=== PATIENT | female | born 2000 | race Caucasian/White ===

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

== ENCOUNTER 2019-05-26 09:18 | Emergency (ER) | payer OTHER ==
[2019-05-26 09:29] VITALS: BP 124/81; PULSE 87; RESP 16; TEMP 98.2
--- NOTE | 2019-05-26 09:35 | ED ---
Headache HPI - General Mode of arrival: ambulatory Limitations: no limitations <China Montes De Oca - Last Filed: 05/26/19 12:01> <Lelo Murcia - Last Filed: 05/27/19 23:42> - General Chief Complaint: Headache Stated Complaint: headache x4 days Time Seen by Provider: 05/26/19 09:31 - History of Present Illness Initial Comments: 18-year-old female presenting today for chief complaint of headache 4 days. Patient states she has occasional headaches in the past. Patient states this feels very typical of her headaches however is lasting longer than usual. Patient described tis headache as band like throbbing circulating head with radiation. Patient states the headache began sometime around Tuesday evening. She states that is came on gradually--denies sudden onset, denies this being the worst PONCE of her life. Denies vomiting, neck pain, photophobia, neck stiffness, visual changes speech changes this coordinated movements, sensation deficits weakness of the upper or lower extremities patient denies any asymmetry of the facial expression she denies any family or known personal history of aneurysms, denies history of polycystic kidney disease. . Denies use of cocaine or amphetamines. Patient denies . Patient has no other complaints at this time. upon arrival patient appears well three is no signs of acute distress. (China Montes De Oca) - Related Data Previous Rx's Medication Instructions Recorded Amoxicillin 500 mg PO Q12HR 10 Days #20 cap 11/29/18 Allergies Allergy/AdvReac Type Severity Reaction Status Date / Time No Known Allergies Allergy Verified 05/27/19 22:39 Review of Systems ROS Other: All systems not noted in ROS Statement are negative. <China Montes De Oca - Last Filed: 05/26/19 12:01> ROS Other: All systems not noted in ROS Statement are negative. <Lelo Murcia - Last Filed: 05/27/19 23:42> ROS Statement: Those systems with pertinent positive or pertinent negative responses have been documented in the HPI. Past Medical History Past Medical History: No Reported History History of Any Multi-Drug Resistant Organisms: None Reported Past Surgical History: No Surgical Hx Reported Past Psychological History: No Psychological Hx Reported Smoking Status: Current every day smoker Past Alcohol Use History: Occasional Past Drug Use History: None Reported <China Montes De Oca - Last Filed: 05/26/19 12:01> General Exam Limitations: no limitations <China Montes De Oca L - Last Filed: 05/26/19 12:01> - General Exam Comments Initial Comments: General: The patient is awake and alert, in no distress, and does not appear acutely ill. Eye: +3 mm pupils are equal, round and reactive to light, extra-ocular movements are intact. No nystagmus. There is normal conjunctiva bilaterally. No signs of icterus. Ears, nose, mouth and throat: There are moist mucous membranes and no oral lesions. Neck: The neck is supple, there is no tenderness or JVD. Cardiovascular: There is a regular rate and rhythm. No murmur, rub or gallop is appreciated. Respiratory: Lungs are clear to auscultation, respirations are non-labored, breath sounds are equal. No wheezes, stridor, rales, or rhonchi. Musculoskeletal: Normal ROM, no tenderness. Strength 5/5. Sensation intact. Pulses equal bilaterally 2+. Neurological: A&O x 3. CN II-XII intact, memory intact to immediately, intermediate and terminal press operator recall. Able to follow simple verbal. Able to name a common object (stethoscope). High quality, labial (pa) and lingual (la) speech. Low quality posterior pharynx/larynx (ga) voice sounds. Able to express general knowledge (days in a week). No hemineglect or inattention noted. Finger agnosia (-) and spatially oriented (identified L index finger touched R shoulder with L index finger). Light touch sensation present over the face, chest, abdomen, back, UE bilaterally, and LE bilaterally. Able to localize point during point localization b/l and extinction. No visible bulk atrophy, hypertrophy, fasciculations, or myoclonus of the UE or LE b/l. Full PROM in UE and LE b/l. Bilateral muscle strength 5/5 for the following muscles: deltoid, biceps, triceps, brachioradialis, wrist extensors/flexor, hip flexor, hip abductors/adductors, hamstrings, quadriceps, feet dorsiflexors/plantar flexors. Finger to nose, finger to the examiners finger, and heel to romero coordinated and accurate b/l. Coordinated and even demonstration of hand flip, finger to thumb, and toe tap b/l. Gait is coordinated and even in stride. Maintains balance with monopedal stance. (-) Romberg. (-) pronator drift. No nuchal rigidity. Skin: Skin is warm and dry and no rashes or lesions are noted. Psychiatric: Cooperative, appropriate mood & affect, normal judgment. (China Montes De Oca) Course <China Montes De Oca - Last Filed: 05/26/19 12:01> Vital Signs 05/26/19 09:28 Temperature 98.2 F Pulse Rate 87 Respiratory 16 Rate Blood Pressure 124/81 O2 Sat by Pulse 99 Oximetry - Reevaluation(s) Reevaluation #1: Patient re-evaluated, pain persists, however prior to walking in room patient was on her phone face-timing another person, laughing, joking, sounding well. No grimacing or signs of physical discomfort on gross examination. 05/26/19 10:53 (China Montes De Oca) Medical Decision Making <China Montes De Oca - Last Filed: 05/26/19 12:01> <Lelo Murcia - Last Filed: 05/27/19 23:42> - Medical Decision Making 18-year-old male presenting today for chief complaint of headache. Patient denies some onset thunderclap headache of this being the worst headache of her life. Patient has no focal neurological deficits she appears well there is no signs of meningeal irritation patient is afebrile and nontoxic in appearance patient was provided Toradol and Zofran and Tylenol she states that this helped somewhat but symptoms still present, 2mg IM morphine given and she states symptoms subsided on reevaluation. I discussed return parameters and the importance of follow-up. Patient verbalized understanding recommended symptoms are chronic she have an outpatient MRI. Patient verbalized understanding, right presented to the emergency department and drove patient home she was given opioids. Patient was discharged appearing well after discussed the case with any provider Dr. Murcia (China Montes De Oca) I was available for consultation in the emergency department. The history and physical exam were done by the midlevel provider. I was consulted for this patients care. I reviewed the case with the midlevel provider and based on their presentation of the patient, I agree with the assessment, medical decision making and plan of care as documented. Chart was dictated using Dragon dictation software. Attempts were made to correct any dictation errors however some typographical errors may persist. (Lelo Murcia) Disposition Is patient prescribed a controlled substance at d/c from ED?: No Time of Disposition: 11:25 <China Montes De Oca - Last Filed: 05/26/19 12:01> <Lelo Murcia - Last Filed: 05/27/19 23:42> Clinical Impression: Acute headache Disposition: HOME SELF-CARE Condition: Good Instructions (If sedation given, give patient instructions): Acute Headache (ED) Additional Instructions: Please use medication as discussed. Please follow-up with family doctor in the next 2 days. Please return to emergency room if the symptoms increase or worsen or for any other concerns. Referrals: None,Stated [Primary Care Provider] - 1-[address] [facility] - [facility]-2 days
[2019-05-26] MEDS ORDERED: KETOROLAC 30 MG/ML 1 ML VIAL IM STA (09:55)
[2019-05-26] MEDS ORDERED: ONDANSETRON ODT 4 MG TAB PO STA (09:56)
[2019-05-26] MEDS ORDERED: ACETAMINOPHEN TAB 325 MG TAB PO STA (09:56)
[2019-05-26] MEDS ORDERED: MORPHINE SULFATE 2 MG/ML SYRINGE IM STA (10:48)
== END 2019-05-26 11:27 | disposition home or self-care (01) ==
LOC: EC 09:18
DX: R51 Headache (principal); F17.200 Nicotine dependence, unspecified, uncomplicated
CPT/HCPCS: 99283; 96372 ×2; J1885; J2270

== ENCOUNTER 2019-05-27 | Emergency (ER) | payer OTHER | END 2019-05-28 00:50 | disposition home or self-care (01) | CPT/HCPCS: 99284; 96374; 96375 ×2; 96361; 70450; J2270; J1200; J2765 ==

== ENCOUNTER 2019-09-24 03:00 | Emergency (ER) | payer OTHER ==
[2019-09-24] MEDS ORDERED: KETOROLAC 60 MG/2 ML VIAL IM STA (03:50)
[2019-09-24] MEDS ORDERED: ACETAMINOPHEN TAB 500 MG TAB PO STA (03:50)
--- NOTE | 2019-09-24 03:51 | ED ---
Back Pain HPI - General Chief Complaint: Back Pain/Injury Stated Complaint: Back Pain Time Seen by Provider: 09/24/19 03:22 Source: patient, RN notes reviewed, old records reviewed Limitations: no limitations - History of Present Illness Initial Comments: This is a 18-year-old female DF for evaluation patient has back pain. Pain making her uncomfortable difficult to sleep, symptoms for 2-3 days now with no injury. No neurological symptoms no loss of bowel or bladder. No trauma no fevers. Patient denies IV drug abuse. No prior history of similar significant back pain MD Complaint: back pain -: days(s) Similar Symptoms Previously: No Place: home Radiation: none Severity: moderate Severity scale (1-10): 5 Quality: sharp, dull Consistency: intermittent Improves With: none Worsens With: none Context: unknown Associated Symptoms: denies other symptoms - Related Data Previous Rx's Medication Instructions Recorded Amoxicillin 500 mg PO Q12HR 10 Days #20 cap 11/29/18 Allergies Allergy/AdvReac Type Severity Reaction Status Date / Time No Known Allergies Allergy Verified 09/24/19 03:19 Review of Systems ROS Statement: Those systems with pertinent positive or pertinent negative responses have been documented in the HPI. ROS Other: All systems not noted in ROS Statement are negative. Past Medical History Past Medical History: No Reported History History of Any Multi-Drug Resistant Organisms: None Reported Past Surgical History: No Surgical Hx Reported Past Psychological History: ADD/ADHD Smoking Status: Current every day smoker Past Alcohol Use History: Occasional Past Drug Use History: None Reported General Exam Limitations: no limitations General appearance: alert, in no apparent distress Head exam: Present: atraumatic, normocephalic, normal inspection Eye exam: Present: normal appearance, PERRL, EOMI. Absent: scleral icterus, conjunctival injection, periorbital swelling ENT exam: Present: normal exam, mucous membranes moist Neck exam: Present: normal inspection. Absent: tenderness, meningismus, lymphadenopathy Respiratory exam: Present: normal lung sounds bilaterally. Absent: respiratory distress, wheezes, rales, rhonchi, stridor Cardiovascular Exam: Present: regular rate, normal rhythm, normal heart sounds. Absent: systolic murmur, diastolic murmur, rubs, gallop, clicks GI/Abdominal exam: Present: soft, normal bowel sounds. Absent: distended, tenderness, guarding, rebound, rigid Extremities exam: Present: normal inspection, full ROM, normal capillary refill. Absent: tenderness, pedal edema, joint swelling, calf tenderness Back exam: Present: normal inspection Neurological exam: Present: alert, oriented X3, CN II-XII intact Psychiatric exam: Present: normal affect, normal mood Skin exam: Present: warm, dry, intact, normal color. Absent: rash Course Vital Signs 09/24/19 03:14 Temperature 98.2 F Pulse Rate 80 Respiratory 20 Rate Blood Pressure 117/82 O2 Sat by Pulse 100 Oximetry - Reevaluation(s) Reevaluation #1: 09/24/19 05:26 Medical record is reviewed Reevaluation #2: 09/24/19 05:26 Patient significant improved patient able ambulate without difficulty Medical Decision Making - Medical Decision Making 18 female to the ER for evaluation of back pain back pain well-controlled, urine is negative CT head and pelvis negative for acute disease - Lab Data Lab Results 09/24/19 09/24/19 Range/Units 04:26 04:27 Urine Color Yellow Urine Appearance Clear (Clear) Urine pH 6.0 (5.0-8.0) Ur Specific [place] 1.027 (1.001-1.035) Urine Protein Negative (Negative) Urine Glucose (UA) Negative (Negative) Urine Ketones Negative (Negative) Urine Blood Negative (Negative) Urine Nitrite Negative (Negative) Urine Bilirubin Negative (Negative) Urine Urobilinogen <2.0 (<2.0) mg/dL Ur Leukocyte Esterase Negative (Negative) Urine HCG, Qual Not Detected (Not Detectd) - Radiology Data Radiology results: report reviewed (CT lumbosacral spine is negative for acute disease), image reviewed Disposition Clinical Impression: Mechanical back pain, Strain of lumbar region Disposition: HOME SELF-CARE Condition: Good Instructions (If sedation given, give patient instructions): Acute Low Back Pain (ED) Is patient prescribed a controlled substance at d/c from ED?: No Referrals: None,Stated [Primary Care Provider] - 1-2 days
[2019-09-24 04:39] LABS: Appearance,Urine Clear (Clear); Bilirubin,Urine Negative (Negative); Blood,Urine Negative (Negative); Color,Urine Yellow; Glucose,Urine (UA) Negative (Negative); Ketones,Urine Negative (Negative); Leukocyte Esterase,Urine Negative (Negative); Nitrite,Urine Negative (Negative); Protein,Urine Negative (Negative); Specific Gravity,Urine 1.027 (1.001-1.035); Urobilinogen,Urine <2.0 mg/dL (<2.0)
--- NOTE | 2019-09-24 05:11 | CT ---
EXAMINATION TYPE: CT lumbar spine wo con DATE OF EXAM: 09/24/2019 COMPARISON: None HISTORY: Lower Back Pain CT DLP: 1538.60 mGycm Automated exposure control for dose reduction was used. Lumbar vertebra have normal alignment. Disc spaces are normal. Posterior elements are intact. There i s no compression fracture. There is no spinal stenosis. Sacroiliac joints appear normal. There is no paraspinal mass. There is no evidence of disc herniation. IMPRESSION: Normal CT scan of the lumbar spine.
[2019-09-24 05:59] VITALS: BP 99/51; PULSE 84; RESP 16; TEMP 98
== END 2019-09-24 06:05 | disposition home or self-care (01) ==
LOC: EC 03:00
DX: S39.012A Strain of muscle, fascia and tendon of lower back, initial encounter (principal); F17.200 Nicotine dependence, unspecified, uncomplicated; X58.XXXA Exposure to other specified factors, initial encounter
CPT/HCPCS: 81003; 81025; 72131; 99284; 96372; J1885

== ENCOUNTER 2020-04-29 12:58 | Emergency (ER) | payer OTHER ==
[2020-04-29 13:04] VITALS: BP 124/80; PULSE 79; RESP 18; TEMP 97.9
--- NOTE | 2020-04-29 13:52 | XR ---
Right knee HISTORY: Trauma yesterday, pain 3 views the right knee Bone mineralization, joint spaces and alignment are maintained. No fracture or dislocation. There is no sizable joint effusion. IMPRESSION: No acute abnormality
--- NOTE | 2020-04-29 13:54 | ED ---
General Adult HPI - General Chief complaint: Extremity Injury, Lower Stated complaint: rt knee problem Time Seen by Provider: 04/29/20 13:00 Source: patient, RN notes reviewed, old records reviewed Mode of arrival: ambulatory Limitations: no limitations - History of Present Illness Initial comments: This is a 19-year-old female who states she started taking some antianxiety medications and makes her drowsy. Patient states she went outside to open up a car door and she bumped herself and had she states she did not get days did not lose consciousness. Patient denies any significant tenderness in that area. Patient denies any blurred vision. Patient states she also wants to be seen because her right knee has been giving out on her for years and more recently she has fallen a couple of times because of it so she wants evaluated. Patient denies any other problems at this time. Patient denies neck pain patient denies numbness weakness. Patient denies any other injury. - Related Data Previous Rx's Medication Instructions Recorded Amoxicillin 500 mg PO Q12HR 10 Days #20 cap 11/29/18 diphenhydrAMINE HCL [Benadryl] 25 mg PO QID PRN #20 tab 11/25/19 Allergies Allergy/AdvReac Type Severity Reaction Status Date / Time bee venom protein (honey bee) Allergy Swelling Verified 11/25/19 14:44 Review of Systems ROS Statement: Those systems with pertinent positive or pertinent negative responses have been documented in the HPI. ROS Other: All systems not noted in ROS Statement are negative. Past Medical History Past Medical History: No Reported History History of Any Multi-Drug Resistant Organisms: None Reported Past Surgical History: No Surgical Hx Reported Past Psychological History: ADD/ADHD, Depression Smoking Status: Current every day smoker Past Alcohol Use History: Occasional Past Drug Use History: Marijuana General Exam - General Exam Comments Initial Comments: GENERAL: Patient is well-developed and well-nourished. Patient is nontoxic and well- hydrated and is in no acute distress. ENT: Neck is soft and supple. No significant lymphadenopathy is noted. Oropharynx is clear. Moist mucous membranes. Neck has full range of motion without eliciting any pain. Patient had no swelling of the face and had no significant tenderness around the orbit. There is no signs of any trauma except for a very slight abrasion in the infraorbital region EYES: The sclera were anicteric and conjunctiva were pink and moist. Extraocular movements were intact and pupils were equal round and reactive to light. Eyelids were unremarkable. PULMONARY: Unlabored respirations. Good breath sounds bilaterally. No audible rales rhonchi or wheezing was noted. CARDIOVASCULAR: There is a regular rate and rhythm without any murmurs gallops or rubs. ABDOMEN: Soft and nontender with normal bowel sounds. SKIN: Patient has multiple bruises to both legs bilaterally she states is from her multiple falls from her knee giving out. NEUROLOGIC: Patient is alert and oriented x3. Cranial nerves II through XII are grossly intact. Motor and sensory are also intact. Normal speech, volume and content. Symmetrical smile. MUSCULOSKELETAL: Normal extremities with adequate strength and full range of motion. Patient has no ligament laxity of the right knee find no areas of tenderness to the right knee LYMPHATICS: No significant lymphadenopathy is noted PSYCHIATRIC: Normal psychiatric evaluation. Limitations: no limitations Course Vital Signs 04/29/20 12:59 Temperature 97.9 F Pulse Rate 79 Respiratory 18 Rate Blood Pressure 124/80 O2 Sat by Pulse 98 Oximetry Disposition Clinical Impression: Facial abrasion, Knee instability Disposition: HOME SELF-CARE Condition: Good Instructions (If sedation given, give patient instructions): Knee Pain (ED) Is patient prescribed a controlled substance at d/c from ED?: No Referrals: None,Stated [Primary Care Provider] - 1-2 days Jerel Pennington MD [STAFF PHYSICIAN] - 1-2 days Time of Disposition: 13:55
== END 2020-04-29 14:00 | disposition home or self-care (01) ==
LOC: EC 12:58
DX: M23.51 Chronic instability of knee, right knee (principal); S00.81XA Abrasion of other part of head, initial encounter; F17.200 Nicotine dependence, unspecified, uncomplicated; Z91.030 Bee allergy status; W18.30XA Fall on same level, unspecified, initial encounter; Y92.009 Unspecified place in unspecified non-institutional (private) residence as the place of occurrence of the external cause
CPT/HCPCS: 73562; 99284; L1830 ×2

== ENCOUNTER 2020-05-01 01:58 | Emergency (ER) | payer OTHER ==
[2020-05-01 02:07] VITALS: RESP 19; TEMP 98
--- NOTE | 2020-05-01 02:24 | ED ---
Head Injury HPI - General Chief complaint: Head Injury Stated complaint: Head, back, knee pain from a fall Time Seen by Provider: 05/01/20 02:08 Source: patient Mode of arrival: ambulatory Limitations: no limitations - History of Present Illness Initial comments: 19 year-old female patient presents to the emergency department for evaluation after sustaining head and back injury on 04/29/19. Patient states that she fell getting into her car. States she hit the back of her head on the door frame. States she did "black out" for less than a minute. States since then she has had headache, nausea, and blurred vision. She denies any vomiting but states she cannot eat due to the vomiting. She is also reporting low back pain. Denies radiation to her legs. Denies loss of bowel or bladder control. Denies numbness or tingling to her extremities. Denies any saddle anesthesia. Patient denies any neck pain, chest pain, shortness of breath, dizziness, weakness, abdominal pain, or difficulties with bowel movements or urination. - Related Data Previous Rx's Medication Instructions Recorded Amoxicillin 500 mg PO Q12HR 10 Days #20 cap 11/29/18 diphenhydrAMINE HCL [Benadryl] 25 mg PO QID PRN #20 tab 11/25/19 Ondansetron [Zofran ODT] 4 mg PO Q8HR PRN #10 tab 05/01/20 Allergies/Adverse reactions: Allergies Allergy/AdvReac Type Severity Reaction Status Date / Time bee venom protein (honey bee) Allergy Swelling Verified 05/01/20 02:07 Review of Systems ROS Statement: Those systems with pertinent positive or pertinent negative responses have been documented in the HPI. ROS Other: All systems not noted in ROS Statement are negative. Past Medical History Past Medical History: No Reported History History of Any Multi-Drug Resistant Organisms: None Reported Past Surgical History: No Surgical Hx Reported Past Psychological History: ADD/ADHD, Depression Smoking Status: Current every day smoker Past Alcohol Use History: Occasional Past Drug Use History: Marijuana General Exam Limitations: no limitations General appearance: alert, in no apparent distress, other (This is a well- developed, well-nourished adult female patient in no acute distress. Vital signs upon presentation are temperature 98.0F, pulse 86, respirations 19, blood pressure 123/84, pulse ox 99% on room air.) Head exam: Present: atraumatic, normocephalic, normal inspection Eye exam: Present: normal appearance, PERRL, EOMI. Absent: scleral icterus, conjunctival injection, periorbital swelling ENT exam: Present: normal exam, normal oropharynx, mucous membranes moist Neck exam: Present: normal inspection, full ROM, other (Nontender, no step-off, no deformity to firm midline palpation of the posterior cervical spine. Full range of motion without pain or limitation.). Absent: tenderness, meningismus, lymphadenopathy Respiratory exam: Present: normal lung sounds bilaterally. Absent: respiratory distress, wheezes, rales, rhonchi, stridor Cardiovascular Exam: Present: regular rate, normal rhythm, normal heart sounds. Absent: systolic murmur, diastolic murmur, rubs, gallop, clicks GI/Abdominal exam: Present: soft, normal bowel sounds. Absent: distended, tenderness, guarding, rebound, rigid Back exam: Present: normal inspection, vertebral tenderness (lumbar spinal tenderness), other (No bony step-off or deformity noted to the low back.) Neurological exam: Present: alert, oriented X3, CN II-XII intact Psychiatric exam: Present: normal affect, normal mood Skin exam: Present: warm, dry, intact, normal color. Absent: rash Course Vital Signs 05/01/20 02:01 Temperature 98 F Pulse Rate 86 Respiratory 19 Rate Blood Pressure 123/84 O2 Sat by Pulse 99 Oximetry Medical Decision Making - Medical Decision Making 19-year-old female patient presents to the emergency department today for evaluation after sustaining a head injury and low back injury when falling while getting into her car on 04/29. To go examination did reveal lumbar spinal tenderness. He is neurologically intact with no focal deficits. She has knee immobilizer from an injury a few days ago on the right leg. CT brain was negative for any acute abnormalities. Lumbar spine x-rays were obtained and were negative. She was given IM dose of Toradol once scan her back and was given prescription for Zofran. She'll be discharged she does have an appointment with her primary care physician tomorrow, she is urged to keep this appointment. She will be following up with orthopedics for the knee. Return parameters were discussed in detail. She verbalizes understanding and agrees with this plan. Case discussed with my attending Dr. Spann. - Radiology Data Radiology results: report reviewed, image reviewed CT brain is obtained. Report is reviewed in its entirety. Impression by Dr. Robert shows no acute infarct, hemorrhage, mass, or edema. 3 views of lumbar spine are obtained. Report is reviewed in its entirety. Impression by Dr. Robert shows normal lumbar spine x-rays. Disposition Clinical Impression: Head injury, Low back strain, Contusion of lower back Disposition: HOME SELF-CARE Condition: Good Instructions (If sedation given, give patient instructions): Head Injury (ED), Low Back Strain (ED), Contusion in Adults (ED) Additional Instructions: Follow-up with your primary care physician and customs import specialist as you have planned. Discuss your symptoms. Use medications as needed for symptom relief. Return for any new, worsening, or concerning symptoms. Prescriptions: Ondansetron [Zofran ODT] 4 mg PO Q8HR PRN #10 tab PRN Reason: Nausea Is patient prescribed a controlled substance at d/c from ED?: No Referrals: None,Stated [Primary Care Provider] - 1-2 days Time of Disposition: 02:54
--- NOTE | 2020-05-01 02:42 | CT ---
EXAM: CT Head Without Intravenous Contrast CLINICAL HISTORY: ITS.REASON CT Reason: Fall head injury; +LOC TECHNIQUE: Axial computed tomography images of the head/brain without intravenous contrast. CTDI is 49.27 mGy and DLP is 1080.40 mGy-cm. This CT exam was performed using one or more of the following dose reduction techniques: automated exposure control, adjustment of the mA and/or kV according to patient size, and/or use of iterative reconstruction technique. COMPARISON: No relevant prior studies available. FINDINGS: Brain: No acute infarct, hemorrhage, mass or edema. Ventricles: Unremarkable. No ventriculomegaly. Bones/joints: Unremarkable. No acute calvarial fracture. Soft tissues: Unremarkable. Sinuses: Minimal mucosal thickening of the paranasal sinuses. Mastoid air cells: Unremarkable as visualized. IMPRESSION: No acute infarct, hemorrhage, mass or edema.
[2020-05-01] MEDS: ACET/COD 300 MG/30 MG STARTER PACK 6 TAB BTL PO STA ×2 (02:46→02:48)
--- NOTE | 2020-05-01 02:51 | XR ---
EXAM: XR Lumbosacral Spine, 4 or 5 Views CLINICAL HISTORY: Trauma TECHNIQUE: Frontal, lateral and oblique views of the lumbar spine. COMPARISON: No relevant prior studies available. FINDINGS: Vertebrae: Unremarkable. No acute fracture. Normal alignment. Sacrum/coccyx: Unremarkable as visualized. No acute fracture. Disc spaces: No acute findings. No significant narrowing. Soft tissues: Unremarkable. IMPRESSION: Normal lumbar spine x-rays.
[2020-05-01] MEDS ORDERED: KETOROLAC 15 MG/ML 1 ML VIAL IM STA (02:52)
[2020-05-01] MEDS ORDERED: ONDANSETRON 4 MG ODT STARTER PACK 2 TAB BTL PO STA (02:53)
[2020-05-01 03:41] VITALS: BP 110/74; PULSE 74
== END 2020-05-01 03:34 | disposition home or self-care (01) ==
LOC: EC 01:58
DX: S09.90XA Unspecified injury of head, initial encounter (principal); S39.012A Strain of muscle, fascia and tendon of lower back, initial encounter; F17.200 Nicotine dependence, unspecified, uncomplicated; Z91.030 Bee allergy status; W18.09XA Striking against other object with subsequent fall, initial encounter
CPT/HCPCS: 70450; 72110; 96372; 99284

== ENCOUNTER → 2020-05-15 | Outpatient (CLI) | payer OTHER ==
--- NOTE | 2020-05-15 22:02 | XR ---
EXAMINATION TYPE: XR femur RT DATE OF EXAM: 05/15/2020 CLINICAL HISTORY: Pain TECHNIQUE: Two views of the right femur are obtained. COMPARISON: None FINDINGS: There is no acute fracture or dislocation seen in the right femur. The right hip and knee joints appear intact. The overlying soft tissue appears unremarkable. IMPRESSION: There is no acute fracture or dislocation in the right femur.
--- NOTE | 2020-05-15 22:03 | XR ---
EXAMINATION TYPE: XR sacrum coccyx DATE OF EXAM: 05/15/2020 COMPARISON: NONE HISTORY: Pain Three views are submitted. Sacrum is intact. SI joints are symmetric. Coccyx appears to be intact. Visualized pelvic structures intact. IMPRESSION: 1. No acute fracture. If symptoms persist consider MRI or CT scan.
== END | disposition home or self-care (01) ==
LOC: RADXRMAIN 13:25
PROVIDERS: ATTEND Family Medicine
DX: M53.3 Sacrococcygeal disorders, not elsewhere classified (principal); M25.561 Pain in right knee
CPT/HCPCS: 72220

== ENCOUNTER 2020-08-27 21:00 | Emergency (ER) | payer OTHER ==
[2020-08-27 21:09] VITALS: BP 114/83; PULSE 56; RESP 20; TEMP 98.1
--- NOTE | 2020-08-27 21:44 | ED ---
URI HPI - General Chief Complaint: Upper Respiratory Infection Stated Complaint: congestion Time Seen by Provider: 08/27/20 21:11 Source: patient, family Mode of arrival: ambulatory - History of Present Illness Initial Comments: This patient is a 19-year-old woman who presents to be evaluated for congestion and cough. She states is been going on a number days possibly up to a week. She states that she is having some much congestion that she will cough which leads her to gag and retch. She did not know what she could take as she found out that she was about a week ago. She believes that her last period was now 6 weeks ago. Patient denies any chest pain or dyspnea. No abdominal pain. MD Complaint: cough, nasal congestion -: days(s) Severity: mild Consistency: constant Improves With: nothing Worsens With: nothing Associated Symptoms: nasal congestion, cough Treatments Prior to Arrival: none - Related Data Previous Rx's Medication Instructions Recorded Ondansetron Odt [Zofran ODT] 4 mg PO Q8HR PRN #10 tab 08/27/20 Allergies Allergy/AdvReac Type Severity Reaction Status Date / Time bee venom protein (honey bee) Allergy Swelling Verified 08/27/20 22:07 pineapple Allergy Swelling Verified 08/27/20 22:07 Review of Systems ROS Statement: Those systems with pertinent positive or pertinent negative responses have been documented in the HPI. ROS Other: All systems not noted in ROS Statement are negative. Constitutional: Denies: fever, chills ENT: Reports: congestion. Denies: throat pain Respiratory: Reports: cough. Denies: dyspnea, wheezes, hemoptysis Cardiovascular: Denies: chest pain, palpitations, edema, syncope Gastrointestinal: Denies: abdominal pain, nausea, vomiting, diarrhea Genitourinary: Denies: dysuria, hematuria, abnormal menses Musculoskeletal: Denies: back pain Skin: Denies: rash Neurological: Denies: headache, weakness, numbness Past Medical History Past Medical History: No Reported History History of Any Multi-Drug Resistant Organisms: None Reported Past Surgical History: No Surgical Hx Reported Past Psychological History: ADD/ADHD, Anxiety, Depression Smoking Status: Former smoker Past Alcohol Use History: Occasional Past Drug Use History: Marijuana General Exam General appearance: alert, in no apparent distress Head exam: Present: atraumatic Eye exam: Present: normal appearance. Absent: scleral icterus, conjunctival injection ENT exam: Present: normal oropharynx Neck exam: Present: normal inspection, full ROM Respiratory exam: Present: normal lung sounds bilaterally. Absent: respiratory distress, wheezes, rales, rhonchi, stridor Cardiovascular Exam: Present: regular rate, normal rhythm, normal heart sounds. Absent: systolic murmur, diastolic murmur, rubs, gallop GI/Abdominal exam: Present: soft. Absent: distended, tenderness, guarding, rebound, rigid, mass Extremities exam: Present: normal inspection, normal capillary refill. Absent: pedal edema, calf tenderness Back exam: Present: normal inspection. Absent: CVA tenderness (R), CVA tenderness (L) Neurological exam: Present: alert Skin exam: Present: warm, dry, intact, normal color. Absent: rash Course Vital Signs 08/27/20 21:05 Temperature 98.1 F Pulse Rate 56 L Respiratory 20 Rate Blood Pressure 114/83 O2 Sat by Pulse 99 Oximetry Medical Decision Making - Lab Data Lab Results 08/27/20 Range/Units 21:51 Coronavirus (PCR) Not Detected (Not Detectd) Disposition Clinical Impression: Acute upper respiratory infection Disposition: HOME SELF-CARE Condition: Good Instructions (If sedation given, give patient instructions): Upper Respiratory Infection (ED) Prescriptions: Ondansetron Odt [Zofran ODT] 4 mg PO Q8HR PRN #10 tab PRN Reason: Nausea Is patient prescribed a controlled substance at d/c from ED?: No Referrals: Anne Dan MD [Primary Care Provider] - 1-2 days
== END 2020-08-27 23:09 | disposition home or self-care (01) ==
LOC: EC 21:00
DX: O99.511 Diseases of the respiratory system complicating pregnancy, first trimester (principal); J06.9 Acute upper respiratory infection, unspecified; O99.341 Other mental disorders complicating pregnancy, first trimester; F41.9 Anxiety disorder, unspecified; F32.9 Major depressive disorder, single episode, unspecified; O99.321 Drug use complicating pregnancy, first trimester; F12.90 Cannabis use, unspecified, uncomplicated; F90.9 Attention-deficit hyperactivity disorder, unspecified type; Z20.822 Contact with and (suspected) exposure to COVID-19; Z87.891 Personal history of nicotine dependence; Z3A.00 Weeks of gestation of pregnancy not specified
CPT/HCPCS: 81025; 87635; 99283

== ENCOUNTER 2020-09-23 06:14 | Emergency (ER) | payer OTHER ==
[2020-09-23 06:19] VITALS: RESP 18
--- NOTE | 2020-09-23 06:38 | ED ---
General Adult HPI - General Chief complaint: Chest Pain Stated complaint: chest pain, 10 wks preg Time Seen by Provider: 09/23/20 06:21 Source: patient Mode of arrival: ambulatory Limitations: no limitations - History of Present Illness Initial comments: 19-year-old female presents to the emergency room for a chief complaint of chest pain. Patient states she was driving her boyfriend to work today when she started to have chest pain. Patient states it is a sharp pain in her chest. Patient reports she called her mom and was told by her mom to just come to the emergency room to make sure everything was okay. Patient states her left shoulder hurts as well but denies any radiating pain down the arm. Patient denies shortness of breath. Denies cough. No fevers or chills at home. Patient is 10 weeks and is following with OB, does not have any abdominal pain or vaginal bleeding. Patient has no other complaints at this time including shortness of breath, abdominal pain, nausea or vomiting, headache, or visual changes. - Related Data Home Medications Medication Instructions Recorded Confirmed Metoclopramide [Reglan] 10 mg PO AC-TID 09/23/20 09/23/20 Allergies Allergy/AdvReac Type Severity Reaction Status Date / Time bee venom protein (honey bee) Allergy Swelling Verified 09/23/20 07:08 pineapple Allergy Swelling Verified 09/23/20 07:08 Review of Systems ROS Statement: Those systems with pertinent positive or pertinent negative responses have been documented in the HPI. ROS Other: All systems not noted in ROS Statement are negative. Past Medical History Past Medical History: No Reported History History of Any Multi-Drug Resistant Organisms: None Reported Past Surgical History: No Surgical Hx Reported Past Psychological History: ADD/ADHD, Anxiety, Depression Smoking Status: Former smoker Past Alcohol Use History: Occasional Past Drug Use History: Marijuana General Exam Limitations: no limitations General appearance: alert, in no apparent distress Head exam: Present: atraumatic, normocephalic, normal inspection Eye exam: Present: normal appearance, PERRL, EOMI. Absent: scleral icterus, conjunctival injection, periorbital swelling ENT exam: Present: normal exam, mucous membranes moist Neck exam: Present: normal inspection. Absent: tenderness, meningismus, lymphadenopathy Respiratory exam: Present: normal lung sounds bilaterally, chest wall tenderness. Absent: respiratory distress, wheezes, rales, rhonchi, stridor Cardiovascular Exam: Present: regular rate, normal rhythm, normal heart sounds. Absent: systolic murmur, diastolic murmur, rubs, gallop, clicks GI/Abdominal exam: Present: soft, normal bowel sounds. Absent: distended, tenderness, guarding, rebound, rigid Course Vital Signs 09/23/20 06:17 Temperature 97.5 F L Pulse Rate 69 Respiratory 18 Rate Blood Pressure 116/80 O2 Sat by Pulse 100 Oximetry - Reevaluation(s) Reevaluation #1: 09/23/20 06:37 Patient declines Tylenol at this time EKG Findings - EKG Comments: EKG Findings:: NSR, vent rate 65, GA int 144, QTc 411 Medical Decision Making - Medical Decision Making vitals are stable. Patient is not tachycardic. 100% on room air. pt describes this chest pain as sharp in nature, Pain is reproducible on exam with palpation. She does have tenderness of the anterior chest wall. EKG shows a normal sinus rhythm. Ventricular rate 65. CBC CMP unremarkable. Troponin negative. Chest x-ray shows no definite acute process. Patient refused Tylenol. At this time given pain is reproducible likely musculoskeletal in nature. Can be discharged home to follow up with primary care. Will return for any worsening symptoms. - Lab Data Result diagrams: 09/23/20 06:44 09/23/20 06:44 Lab Results 09/23/20 09/23/20 09/23/20 Range/Units 06:44 06:44 06:44 WBC 7.6 (4.0-11.0) k/uL RBC 4.56 (3.80-5.40) m/uL Hgb 13.5 (11.4-16.0) gm/dL Hct 40.4 (34.0-46.0) % MCV 88.7 (80.0-100.0) fL MCH 29.7 (25.0-35.0) pg MCHC 33.5 (31.0-37.0) g/dL RDW 13.8 (11.5-15.5) % Plt Count 220 (150-450) k/uL MPV 7.3 Neutrophils % 70 % Lymphocytes % 19 % Monocytes % 7 % Eosinophils % 2 % Basophils % 0 % Neutrophils # 5.3 (1.3-7.7) k/uL Lymphocytes # 1.5 (1.0-4.8) k/uL Monocytes # 0.5 (0-1.0) k/uL Eosinophils # 0.2 (0-0.7) k/uL Basophils # 0.0 (0-0.2) k/uL Sodium 137 (137-145) mmol/L Potassium 4.2 (3.5-5.1) mmol/L Chloride 106 (98-107) mmol/L Carbon Dioxide 24 (22-30) mmol/L Anion Gap 7 mmol/L BUN 11 (7-17) mg/dL Creatinine 0.51 L (0.52-1.04) mg/dL Est GFR (CKD-EPI)AfAm >90 (>60 ml/min/1.73 sqM) Est GFR (CKD-EPI)NonAf >90 (>60 ml/min/1.73 sqM) Glucose 101 H (74-99) mg/dL Calcium 9.5 (8.4-10.2) mg/dL Total Bilirubin 0.2 (0.2-1.3) mg/dL AST 20 (14-36) U/L ALT 14 (4-34) U/L Alkaline Phosphatase 48 (38-126) U/L Troponin I <0.012 (0.000-0.034) ng/mL Total Protein 6.4 (6.3-8.2) g/dL Albumin 3.7 (3.5-5.0) g/dL Disposition Clinical Impression: Atypical chest pain Disposition: HOME SELF-CARE Condition: Good Instructions (If sedation given, give patient instructions): Costochondritis (ED) Additional Instructions: Please take Tylenol for pain. Please follow-up with your doctor in one to 2 days. Return to the emergency room for any worsening symptoms. Is patient prescribed a controlled substance at d/c from ED?: No Referrals: Anne Dan MD [Primary Care Provider] - 1-2 days Time of Disposition: 08:08
[2020-09-23 07:06] LABS: Basophils % (A) 0 %; Eosinophils # (A) 0.2 k/uL (0-0.7); Eosinophils % (A) 2 %; HCT 40.4 % (34.0-46.0); HGB 13.5 gm/dL (11.4-16.0); Lymphocytes # (A) 1.5 k/uL (1.0-4.8); Lymphocytes % (A) 19 %; MCH 29.7 pg (25.0-35.0); MCHC 33.5 g/dL (31.0-37.0); MCV 88.7 fL (80.0-100.0); Mean Platelet Volume 7.3; Monocytes # (A) 0.5 k/uL (0-1.0); Monocytes % (A) 7 %; Neutrophils # (A) 5.3 k/uL (1.3-7.7); Neutrophils % (A) 70 %; Platelet Count 220 k/uL (150-450); RBC 4.56 m/uL (3.80-5.40); RDW 13.8 % (11.5-15.5); WBC 7.6 k/uL (4.0-11.0)
[2020-09-23 07:17] LABS: ALT 14 U/L (4-34); AST 20 U/L (14-36); African American GFR (CKD) >90 (>60 ml/min/1.73 sqM); Albumin 3.7 g/dL (3.5-5.0); Alkaline Phosphatase 48 U/L (38-126); Anion Gap 7 mmol/L; Blood Urea Nitrogen 11 mg/dL (7-17); Calcium 9.5 mg/dL (8.4-10.2); Carbon Dioxide 24 mmol/L (22-30); Chloride 106 mmol/L (98-107); Glucose 101 mg/dL (74-99); Non-African American GFR(CKD) >90 (>60 ml/min/1.73 sqM); Potassium 4.2 mmol/L (3.5-5.1); Sodium 137 mmol/L (137-145); Total Bilirubin 0.2 mg/dL (0.2-1.3); Total Protein 6.4 g/dL (6.3-8.2)
--- NOTE | 2020-09-23 07:41 | XR ---
EXAMINATION TYPE: XR chest 2V DATE OF EXAM: 09/23/2020 COMPARISON: 04/05/2019 HISTORY: Chest pain, 10 weeks TECHNIQUE: Frontal and lateral views of the chest are obtained. FINDINGS: Low lung volumes. Heart size is within normal limits. No focal consolidation, pneumothorax or pleural effusion. Mild crowding of the central pulmonary interstitium is likely due to low lung v olumes. A repeat study with full inspiration could be obtained. Osseous structures are unremarkable. IMPRESSION: 1. No definite evidence of acute pulmonary disease. Crowding of the central pulmonary interstitium is likely due to low lung volumes. A repeat with full inspiration could be obtained.
[2020-09-23 08:31] VITALS: BP 118/80; PULSE 61; TEMP 97.8
== END 2020-09-23 08:30 | disposition home or self-care (01) ==
LOC: EC 06:14
DX: O26.891 Other specified pregnancy related conditions, first trimester (principal); R07.89 Other chest pain; O99.341 Other mental disorders complicating pregnancy, first trimester; F32.9 Major depressive disorder, single episode, unspecified; F41.9 Anxiety disorder, unspecified; F90.9 Attention-deficit hyperactivity disorder, unspecified type; F12.90 Cannabis use, unspecified, uncomplicated; Z3A.10 10 weeks gestation of pregnancy
CPT/HCPCS: 36415; 71046; 80053; 84484; 85025; 93005; 99285

== ENCOUNTER 2020-09-24 06:11 | Emergency (ER) | payer OTHER ==
[2020-09-24 06:22] VITALS: RESP 18
[2020-09-24] MEDS ORDERED: diphenhydrAMINE 50 MG/ML 1 ML VIAL IVP STA (06:29)
[2020-09-24] MEDS ORDERED: METOCLOPRAMIDE 5 MG/ML 2 ML VIAL IVP STA (06:29)
[2020-09-24] MEDS ORDERED: SODIUM CHLORIDE 0.9% 1,000 ML IV STA ×2 (06:29→07:31)
--- NOTE | 2020-09-24 06:33 | ED ---
General Adult HPI - General Chief complaint: Nausea/Vomiting/Diarrhea Stated complaint: Vomiting, 10 weeks Time Seen by Provider: 09/24/20 06:22 Source: patient, RN notes reviewed Mode of arrival: ambulatory Limitations: no limitations - History of Present Illness Initial comments: 19-year-old female presents to the emergency room for chief complaint of nausea vomiting. Patient is about 10 weeks . She reports that she has had nausea vomiting since yesterday and has only been able to eat a few crackers and drink some water. Patient reports that she was seen here yesterday for chest pain and that that has resolved. 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 She denies any associated abdominal pain or vaginal bleeding. Patient has no other complaints at this time including shortness of breath, chest pain, abdominal pain, headache, or visual changes. - Related Data Home Medications Medication Instructions Recorded Confirmed Metoclopramide [Reglan] 10 mg PO AC-TID 09/23/20 09/23/20 Previous Rx's Medication Instructions Recorded Doxylamine/Pyridoxine HCl (B6) 2 each PO HS #20 tablet. 09/24/20 [Dicjosh Ceballos 10-10 mg Tablet] Nitrofurantoin Monohyd/M-Cryst 100 mg PO Q12HR #10 cap 09/24/20 [Macrobid] Allergies Allergy/AdvReac Type Severity Reaction Status Date / Time bee venom protein (honey bee) Allergy Swelling Verified 09/23/20 07:08 pineapple Allergy Swelling Verified 09/23/20 07:08 Review of Systems ROS Statement: Those systems with pertinent positive or pertinent negative responses have been documented in the HPI. ROS Other: All systems not noted in ROS Statement are negative. Past Medical History Past Medical History: No Reported History History of Any Multi-Drug Resistant Organisms: None Reported Past Surgical History: No Surgical Hx Reported Past Psychological History: ADD/ADHD, Anxiety, Depression Smoking Status: Former smoker Past Alcohol Use History: Occasional Past Drug Use History: Marijuana General Exam Limitations: no limitations General appearance: alert, in no apparent distress Head exam: Present: atraumatic, normocephalic, normal inspection Eye exam: Present: normal appearance, PERRL, EOMI. Absent: scleral icterus, conjunctival injection, periorbital swelling ENT exam: Present: normal exam, mucous membranes moist Neck exam: Present: normal inspection. Absent: tenderness, meningismus, lymphadenopathy Respiratory exam: Present: normal lung sounds bilaterally. Absent: respiratory distress, wheezes, rales, rhonchi, stridor Cardiovascular Exam: Present: regular rate, normal rhythm, normal heart sounds. Absent: systolic murmur, diastolic murmur, rubs, gallop, clicks GI/Abdominal exam: Present: soft, normal bowel sounds. Absent: distended, tenderness, guarding, rebound, rigid Course Vital Signs 09/24/20 06:17 Temperature 98 F Pulse Rate 73 Respiratory 18 Rate Blood Pressure 116/78 O2 Sat by Pulse 97 Oximetry Medical Decision Making - Medical Decision Making vitals stable. pt nontoxic, well appearing. CBC CMP unremarkable. Urinalysis does show 4+ ketones consistent with dehydration. She does also have moderate bacteria which will be treated. patient was given 2 L of fluid and antiemetics, had significant improvement in symptoms. Requesting discharge. She will be discharged home with a clean just. She will follow up with her OB at her scheduled appointment in 2 days. - Lab Data Result diagrams: 09/24/20 07:00 09/24/20 07:00 Lab Results 09/24/20 09/24/20 09/24/20 Range/Units 07:00 07:00 07:00 WBC 8.1 (4.0-11.0) k/uL RBC 4.71 (3.80-5.40) m/uL Hgb 14.1 (11.4-16.0) gm/dL Hct 41.9 (34.0-46.0) % MCV 88.9 (80.0-100.0) fL MCH 30.0 (25.0-35.0) pg MCHC 33.8 (31.0-37.0) g/dL RDW 13.8 (11.5-15.5) % Plt Count 222 (150-450) k/uL MPV 7.3 Neutrophils % 73 % Lymphocytes % 18 % Monocytes % 5 % Eosinophils % 2 % Basophils % 1 % Neutrophils # 5.9 (1.3-7.7) k/uL Lymphocytes # 1.4 (1.0-4.8) k/uL Monocytes # 0.4 (0-1.0) k/uL Eosinophils # 0.2 (0-0.7) k/uL Basophils # 0.0 (0-0.2) k/uL Sodium 138 (137-145) mmol/L Potassium 3.6 (3.5-5.1) mmol/L Chloride 107 (98-107) mmol/L Carbon Dioxide 21 L (22-30) mmol/L Anion Gap 10 mmol/L BUN 10 (7-17) mg/dL Creatinine 0.47 L (0.52-1.04) mg/dL Est GFR (CKD-EPI)AfAm >90 (>60 ml/min/1.73 sqM) Est GFR (CKD-EPI)NonAf >90 (>60 ml/min/1.73 sqM) Glucose 95 (74-99) mg/dL Calcium 9.4 (8.4-10.2) mg/dL Total Bilirubin 0.4 (0.2-1.3) mg/dL AST 20 (14-36) U/L ALT 15 (4-34) U/L Alkaline Phosphatase 56 (38-126) U/L Total Protein 6.8 (6.3-8.2) g/dL Albumin 4.0 (3.5-5.0) g/dL Lipase 48 (23-300) U/L Urine Color Yellow Urine Appearance Cloudy H (Clear) Urine pH 5.5 (5.0-8.0) Ur Specific [place] 1.034 (1.001-1.035) Urine Protein 1+ H (Negative) Urine Glucose (UA) Negative (Negative) Urine Ketones 4+ H (Negative) Urine Blood Negative (Negative) Urine Nitrite Negative (Negative) Urine Bilirubin Negative (Negative) Urine Urobilinogen <2.0 (<2.0) mg/dL Ur Leukocyte Esterase Negative (Negative) Urine RBC 3 (0-5) /hpf Urine WBC 6 H (0-5) /hpf Ur Squamous Epith Cells 14 H (0-4) /hpf Amorphous Sediment Rare H (None) /hpf Urine Bacteria Moderate H (None) /hpf Hyaline Casts 3 H (0-2) /lpf Urine Mucus Moderate H (None) /hpf Urine HCG, Qual (Not Detectd) 09/24/20 Range/Units 07:00 WBC (4.0-11.0) k/uL RBC (3.80-5.40) m/uL Hgb (11.4-16.0) gm/dL Hct (34.0-46.0) % MCV (80.0-100.0) fL MCH (25.0-35.0) pg MCHC (31.0-37.0) g/dL RDW (11.5-15.5) % Plt Count (150-450) k/uL MPV Neutrophils % % Lymphocytes % % Monocytes % % Eosinophils % % Basophils % % Neutrophils # (1.3-7.7) k/uL Lymphocytes # (1.0-4.8) k/uL Monocytes # (0-1.0) k/uL Eosinophils # (0-0.7) k/uL Basophils # (0-0.2) k/uL Sodium (137-145) mmol/L Potassium (3.5-5.1) mmol/L Chloride (98-107) mmol/L Carbon Dioxide (22-30) mmol/L Anion Gap mmol/L BUN (7-17) mg/dL Creatinine (0.52-1.04) mg/dL Est GFR (CKD-EPI)AfAm (>60 ml/min/1.73 sqM) Est GFR (CKD-EPI)NonAf (>60 ml/min/1.73 sqM) Glucose (74-99) mg/dL Calcium (8.4-10.2) mg/dL Total Bilirubin (0.2-1.3) mg/dL AST (14-36) U/L ALT (4-34) U/L Alkaline Phosphatase (38-126) U/L Total Protein (6.3-8.2) g/dL Albumin (3.5-5.0) g/dL Lipase (23-300) U/L Urine Color Urine Appearance (Clear) Urine pH (5.0-8.0) Ur Specific [place] (1.001-1.035) Urine Protein (Negative) Urine Glucose (UA) (Negative) Urine Ketones (Negative) Urine Blood (Negative) Urine Nitrite (Negative) Urine Bilirubin (Negative) Urine Urobilinogen (<2.0) mg/dL Ur Leukocyte Esterase (Negative) Urine RBC (0-5) /hpf Urine WBC (0-5) /hpf Ur Squamous Epith Cells (0-4) /hpf Amorphous Sediment (None) /hpf Urine Bacteria (None) /hpf Hyaline Casts (0-2) /lpf Urine Mucus (None) /hpf Urine HCG, Qual Detected (Not Detectd) Disposition Clinical Impression: Nausea & vomiting Disposition: HOME SELF-CARE Condition: Good Instructions (If sedation given, give patient instructions): Hyperemesis Gravidarum (ED) Additional Instructions: Stay hydrated by taking small sips of fluid. Take your medications as directed. Follow-up with your OB appointment in 2 days. Return to the emergency room for any worsening symptoms. Prescriptions: Doxylamine/Pyridoxine HCl (B6) [Delbert Ceballos 10-10 mg Tablet] 2 each PO HS #20 tablet. Nitrofurantoin Monohyd/M-Cryst [Macrobid] 100 mg PO Q12HR #10 cap Is patient prescribed a controlled substance at d/c from ED?: No Referrals: Anne Dan MD [Primary Care Provider] - 1-2 days Time of Disposition: 08:22
[2020-09-24 07:08] LABS: Basophils % (A) 1 %; Eosinophils # (A) 0.2 k/uL (0-0.7); Eosinophils % (A) 2 %; HCT 41.9 % (34.0-46.0); HGB 14.1 gm/dL (11.4-16.0); Lymphocytes # (A) 1.4 k/uL (1.0-4.8); Lymphocytes % (A) 18 %; MCHC 33.8 g/dL (31.0-37.0); MCV 88.9 fL (80.0-100.0); Mean Platelet Volume 7.3; Monocytes # (A) 0.4 k/uL (0-1.0); Monocytes % (A) 5 %; Neutrophils # (A) 5.9 k/uL (1.3-7.7); Neutrophils % (A) 73 %; Platelet Count 222 k/uL (150-450); RBC 4.71 m/uL (3.80-5.40); RDW 13.8 % (11.5-15.5); WBC 8.1 k/uL (4.0-11.0)
[2020-09-24 07:16] LABS: Amorphous Sediment,Urine Rare /hpf; Appearance,Urine Cloudy (Clear); Bacteria,Urine Moderate /hpf; Bilirubin,Urine Negative (Negative); Blood,Urine Negative (Negative); Color,Urine Yellow; Glucose,Urine (UA) Negative (Negative); Hyaline Casts,Urine 3 /lpf (0-2); Ketones,Urine 4+ (Negative); Leukocyte Esterase,Urine Negative (Negative); Mucus,Urine Moderate /hpf; Nitrite,Urine Negative (Negative); PH, Urine 5.5 (5.0-8.0); Protein,Urine 1+ (Negative); RBC,Urine 3 /hpf (0-5); Specific Gravity,Urine 1.034 (1.001-1.035); Squamous Epithelial Cell,Urine 14 /hpf (0-4); Urobilinogen,Urine <2.0 mg/dL (<2.0); WBC,Urine 6 /hpf (0-5)
[2020-09-24 07:18] LABS: ALT 15 U/L (4-34); AST 20 U/L (14-36); African American GFR (CKD) >90 (>60 ml/min/1.73 sqM); Alkaline Phosphatase 56 U/L (38-126); Anion Gap 10 mmol/L; Blood Urea Nitrogen 10 mg/dL (7-17); Calcium 9.4 mg/dL (8.4-10.2); Carbon Dioxide 21 mmol/L (22-30); Chloride 107 mmol/L (98-107); Glucose 95 mg/dL (74-99); Lipase 48 U/L (23-300); Non-African American GFR(CKD) >90 (>60 ml/min/1.73 sqM); Potassium 3.6 mmol/L (3.5-5.1); Sodium 138 mmol/L (137-145); Total Bilirubin 0.4 mg/dL (0.2-1.3); Total Protein 6.8 g/dL (6.3-8.2)
[2020-09-24 08:47] VITALS: BP 108/67; PULSE 80; TEMP 97.9
== END 2020-09-24 08:46 | disposition home or self-care (01) ==
LOC: EC 06:11
DX: O21.9 Vomiting of pregnancy, unspecified (principal); O99.321 Drug use complicating pregnancy, first trimester; F12.90 Cannabis use, unspecified, uncomplicated; Z87.891 Personal history of nicotine dependence; Z3A.10 10 weeks gestation of pregnancy
CPT/HCPCS: 36415; 80053; 83690; 85025; 81001; 81025; 96374; 96375; 96361; 96360; 99283; J1200; J2765

== ENCOUNTER → 2020-09-29 | Outpatient (CLI) | payer OTHER | END | disposition home or self-care (01) | CPT/HCPCS: 76801; 76813 ==

== ENCOUNTER 2020-11-03 00:23 | Emergency (ER) | payer OTHER ==
[2020-11-03 00:28] VITALS: PULSE 100
[2020-11-03] MEDS ORDERED: SODIUM CHLORIDE 0.9% 1,000 ML IV ONE (01:05)
[2020-11-03 01:29] LABS: Basophils % (A) 0 %; Eosinophils # (A) 0.1 k/uL (0-0.7); Eosinophils % (A) 1 %; HGB 13.6 gm/dL (11.4-16.0); Lymphocytes # (A) 0.5 k/uL (1.0-4.8); Lymphocytes % (A) 6 %; MCV 91.4 fL (80.0-100.0); Mean Platelet Volume 8.1; Monocytes # (A) 0.4 k/uL (0-1.0); Monocytes % (A) 5 %; Neutrophils # (A) 7.5 k/uL (1.3-7.7); Neutrophils % (A) 87 %; Platelet Count 220 k/uL (150-450); RBC 4.38 m/uL (3.80-5.40); RDW 14.3 % (11.5-15.5); WBC 8.6 k/uL (4.0-11.0)
[2020-11-03 01:39] LABS: Appearance,Urine Clear (Clear); Bilirubin,Urine Negative (Negative); Blood,Urine Negative (Negative); Color,Urine Light Yellow; Glucose,Urine (UA) Negative (Negative); Ketones,Urine Negative (Negative); Leukocyte Esterase,Urine Negative (Negative); Nitrite,Urine Negative (Negative); Protein,Urine Negative (Negative); Specific Gravity,Urine 1.007 (1.001-1.035); Urobilinogen,Urine <2.0 mg/dL (<2.0)
[2020-11-03 01:40] LABS: ALT 20 U/L (4-34); AST 24 U/L (14-36); African American GFR (CKD) >90 (>60 ml/min/1.73 sqM); Albumin 3.7 g/dL (3.5-5.0); Alkaline Phosphatase 63 U/L (38-126); Anion Gap 10 mmol/L; Blood Urea Nitrogen <2 mg/dL (7-17); Calcium 9.2 mg/dL (8.4-10.2); Carbon Dioxide 16 mmol/L (22-30); Chloride 107 mmol/L (98-107); Glucose 102 mg/dL (74-99); Lipase 36 U/L (23-300); Non-African American GFR(CKD) >90 (>60 ml/min/1.73 sqM); Potassium 3.5 mmol/L (3.5-5.1); Sodium 133 mmol/L (137-145); Total Bilirubin 0.2 mg/dL (0.2-1.3); Total Protein 6.7 g/dL (6.3-8.2)
[2020-11-03] MEDS ORDERED: ONDANSETRON 4 MG/2 ML VIAL IVP STA (01:42)
--- NOTE | 2020-11-03 02:18 | ED ---
General Adult HPI - General Chief complaint: Upper Respiratory Infection Stated complaint: URI Time Seen by Provider: 11/03/20 00:32 Source: patient Mode of arrival: ambulatory - History of Present Illness Initial comments: 19 year-old female patient presents to the emergency department for evaluation of sore throat, vomiting, and nasal congestion. Patient is 16 weeks . States she just finished 5 day course of amoxicillin for tonsillitis and bilateral ear infection. States she has been vomiting all day, unable to keep down any food or fluids. States that she finished the antibiotic and is not feeling better. She denies any abdominal pain, vaginal bleeding, or vaginal discharge. States she has been having issues with vomiting throughout the entire . Denies any hematuria, dysuria, urinary urgency, and urinary frequency. Patient denies any recent rash, fever, chills, cough, shortness of breath, chest pain, diarrhea, constipation, back pain, numbness, tingling, dizziness, weakness, headache, visual changes, or any other complaints. - Related Data Home Medications Medication Instructions Recorded Confirmed Metoclopramide [Reglan] 10 mg PO AC-TID 09/23/20 09/23/20 Previous Rx's Medication Instructions Recorded Doxylamine Succinate [Unisom] 25 mg PO HS #20 tablet 09/24/20 Nitrofurantoin Monohyd/M-Cryst 100 mg PO Q12HR #10 cap 09/24/20 [Macrobid] Pyridoxine HCl (Vitamin B6) 25 mg PO HS #20 tablet 09/24/20 [Pyridoxine HCl] Allergies Allergy/AdvReac Type Severity Reaction Status Date / Time bee venom protein (honey bee) Allergy Swelling Verified 11/03/20 00:28 pineapple Allergy Swelling Verified 11/03/20 00:28 methylphenidate AdvReac Rapid Verified 11/03/20 00:28 [From Concerta] Heart Rate Review of Systems ROS Statement: Those systems with pertinent positive or pertinent negative responses have been documented in the HPI. ROS Other: All systems not noted in ROS Statement are negative. Past Medical History Past Medical History: No Reported History History of Any Multi-Drug Resistant Organisms: None Reported Past Surgical History: No Surgical Hx Reported Past Psychological History: ADD/ADHD, Anxiety, Depression Smoking Status: Former smoker Past Alcohol Use History: Occasional Past Drug Use History: Marijuana General Exam General appearance: alert, in no apparent distress, other (This is a well-developed, well-nourished adult female patient in no acute distress. Vital signs upon presentation are temperature 97.8F, pulse 100, respirations 19, blood pressure 127/82, pulse ox 96% on room air.) Eye exam: Present: normal appearance, PERRL, EOMI. Absent: scleral icterus, conjunctival injection, periorbital swelling ENT exam: Present: mucous membranes moist, TM's normal bilaterally. Absent: normal oropharynx (Pharyngeal erythema. Tonsillar hypertrophy. No exudate. Tonsils are symmetric and uvula is midline.) Respiratory exam: Present: normal lung sounds bilaterally. Absent: respiratory distress, wheezes, rales, rhonchi, stridor Cardiovascular Exam: Present: regular rate, normal rhythm, normal heart sounds. Absent: systolic murmur, diastolic murmur, rubs, gallop, clicks GI/Abdominal exam: Present: soft, normal bowel sounds. Absent: distended, tenderness, guarding, rebound, rigid Neurological exam: Present: alert, oriented X3, CN II-XII intact Psychiatric exam: Present: normal affect, normal mood Skin exam: Present: warm, dry, intact, normal color. Absent: rash Course Vital Signs 11/03/20 00:25 Temperature 97.8 F Pulse Rate 100 Respiratory 19 Rate Blood Pressure 127/82 O2 Sat by Pulse 96 Oximetry Medical Decision Making - Medical Decision Making 19-year-old female patient presents to the emergency department today for evaluation of sore throat, nausea, vomiting. She is 16 weeks . Physical examination did reveal pharyngeal erythema and tonsillar hypertrophy but no tonsillar exudate or asymmetry. Abdomen soft and nontender. She is afebrile, vital signs. Labs reviewed and are unremarkable. No evidence for UTI. She tested negative for strep and COVID-19. She'll be discharged to follow up with her primary care physician and MAINTENANCE CONTROLLER for recheck as soon as possible. Return parameters discussed in detail patient verbalizes understanding and agrees with this plan. Case discussed with my attending Dr. Spann. - Lab Data Result diagrams: 11/03/20 01:14 11/03/20 01:14 Lab Results 11/03/20 11/03/20 11/03/20 Range/Units 01:14 01:14 01:14 WBC 8.6 (4.0-11.0) k/uL RBC 4.38 (3.80-5.40) m/uL Hgb 13.6 (11.4-16.0) gm/dL Hct 40.0 (34.0-46.0) % MCV 91.4 (80.0-100.0) fL MCH 31.0 (25.0-35.0) pg MCHC 34.0 (31.0-37.0) g/dL RDW 14.3 (11.5-15.5) % Plt Count 220 (150-450) k/uL MPV 8.1 Neutrophils % 87 % Lymphocytes % 6 % Monocytes % 5 % Eosinophils % 1 % Basophils % 0 % Neutrophils # 7.5 (1.3-7.7) k/uL Lymphocytes # 0.5 L (1.0-4.8) k/uL Monocytes # 0.4 (0-1.0) k/uL Eosinophils # 0.1 (0-0.7) k/uL Basophils # 0.0 (0-0.2) k/uL Sodium 133 L (137-145) mmol/L Potassium 3.5 (3.5-5.1) mmol/L Chloride 107 (98-107) mmol/L Carbon Dioxide 16 L (22-30) mmol/L Anion Gap 10 mmol/L BUN <2 L (7-17) mg/dL Creatinine 0.40 L (0.52-1.04) mg/dL Est GFR (CKD-EPI)AfAm >90 (>60 ml/min/1.73 sqM) Est GFR (CKD-EPI)NonAf >90 (>60 ml/min/1.73 sqM) Glucose 102 H (74-99) mg/dL Calcium 9.2 (8.4-10.2) mg/dL Total Bilirubin 0.2 (0.2-1.3) mg/dL AST 24 (14-36) U/L ALT 20 (4-34) U/L Alkaline Phosphatase 63 (38-126) U/L Total Protein 6.7 (6.3-8.2) g/dL Albumin 3.7 (3.5-5.0) g/dL Lipase 36 (23-300) U/L Urine Color Urine Appearance (Clear) Urine pH (5.0-8.0) Ur Specific [place] (1.001-1.035) Urine Protein (Negative) Urine Glucose (UA) (Negative) Urine Ketones (Negative) Urine Blood (Negative) Urine Nitrite (Negative) Urine Bilirubin (Negative) Urine Urobilinogen (<2.0) mg/dL Ur Leukocyte Esterase (Negative) Coronavirus (PCR) (Not Detectd) Group A Strep Rapid Negative (Negative) 11/03/20 11/03/20 Range/Units 01:14 01:14 WBC (4.0-11.0) k/uL RBC (3.80-5.40) m/uL Hgb (11.4-16.0) gm/dL Hct (34.0-46.0) % MCV (80.0-100.0) fL MCH (25.0-35.0) pg MCHC (31.0-37.0) g/dL RDW (11.5-15.5) % Plt Count (150-450) k/uL MPV Neutrophils % % Lymphocytes % % Monocytes % % Eosinophils % % Basophils % % Neutrophils # (1.3-7.7) k/uL Lymphocytes # (1.0-4.8) k/uL Monocytes # (0-1.0) k/uL Eosinophils # (0-0.7) k/uL Basophils # (0-0.2) k/uL Sodium (137-145) mmol/L Potassium (3.5-5.1) mmol/L Chloride (98-107) mmol/L Carbon Dioxide (22-30) mmol/L Anion Gap mmol/L BUN (7-17) mg/dL Creatinine (0.52-1.04) mg/dL Est GFR (CKD-EPI)AfAm (>60 ml/min/1.73 sqM) Est GFR (CKD-EPI)NonAf (>60 ml/min/1.73 sqM) Glucose (74-99) mg/dL Calcium (8.4-10.2) mg/dL Total Bilirubin (0.2-1.3) mg/dL AST (14-36) U/L ALT (4-34) U/L Alkaline Phosphatase (38-126) U/L Total Protein (6.3-8.2) g/dL Albumin (3.5-5.0) g/dL Lipase (23-300) U/L Urine Color Light Yellow Urine Appearance Clear (Clear) Urine pH 6.0 (5.0-8.0) Ur Specific [place] 1.007 (1.001-1.035) Urine Protein Negative (Negative) Urine Glucose (UA) Negative (Negative) Urine Ketones Negative (Negative) Urine Blood Negative (Negative) Urine Nitrite Negative (Negative) Urine Bilirubin Negative (Negative) Urine Urobilinogen <2.0 (<2.0) mg/dL Ur Leukocyte Esterase Negative (Negative) Coronavirus (PCR) Not Detected (Not Detectd) Group A Strep Rapid (Negative) Disposition Clinical Impression: Pharyngitis, Vomiting during Disposition: HOME SELF-CARE Condition: Good Instructions (If sedation given, give patient instructions): Pharyngitis (ED), Acute Nausea and Vomiting (ED) Additional Instructions: Increase fluids. Take Tylenol as needed. Follow-up the primary care physician for recheck in 1-2 days. Follow-up with the MAINTENANCE CONTROLLER for recheck in 1-2 days. Return for any new, worsening, or concerning symptoms. Is patient prescribed a controlled substance at d/c from ED?: No Referrals: Anne Dan MD [Primary Care Provider] - 1-2 days Time of Disposition: 03:19
[2020-11-03 03:27] VITALS: BP 130/76; RESP 16; TEMP 98.7
== END 2020-11-03 03:27 | disposition home or self-care (01) ==
LOC: EC 00:23
DX: O21.9 Vomiting of pregnancy, unspecified (principal); O99.512 Diseases of the respiratory system complicating pregnancy, second trimester; J02.9 Acute pharyngitis, unspecified; O99.322 Drug use complicating pregnancy, second trimester; F12.90 Cannabis use, unspecified, uncomplicated; Z87.891 Personal history of nicotine dependence; Z3A.16 16 weeks gestation of pregnancy
CPT/HCPCS: 36415; 80053; 83690; 85025; 81003; 87081; 87430; 87635; 96374; 96361; 99284; J2405

== ENCOUNTER 2020-12-14 15:36 | Emergency (ER) | payer OTHER ==
[2020-12-14 15:59] VITALS: RESP 18
[2020-12-14] MEDS ORDERED: HYDROcodone/APAP 5-325MG 1 EACH TAB PO STA (16:41)
--- NOTE | 2020-12-14 17:35 | XR ---
EXAMINATION TYPE: XR knee complete RT DATE OF EXAM: 12/14/2020 COMPARISON: NONE HISTORY: Fall. Pain. TECHNIQUE: 3 views FINDINGS: I see no fracture nor dislocation. Joint spaces are fairly normal. There is no sign of join t effusion. IMPRESSION: Negative right knee exam.
--- NOTE | 2020-12-14 17:55 | ED ---
General Adult HPI - General Chief complaint: Fall Stated complaint: knee injury Time Seen by Provider: 12/14/20 16:04 Source: EMS, RN notes reviewed, old records reviewed Mode of arrival: EMS Limitations: no limitations - History of Present Illness Initial comments: Patient is a 20-year-old female with past medical history remarkable for being approximately 22 weeks presents emergency Department after falling at home in the shower. Patient states that she fell down and struck her right knee. Denies hitting her head or expressing loss of consciousness. Denies hitting her abdomen experiencing abdominal cramping, vaginal bleeding or spotting. Her only pain is over her right knee. She is receiving care. Denies any chest pain, shortness of breath. This fall occurred approximately one hour to 2 hours prior to arrival. They placed her in a knee brace and person emergency department for evaluation. She states she has diffu se pain over her right knee and has a history of a meniscus injury on the right knee. She states she currently does not have an renewals specialist that she follows up with. Denies any other acute complaint at this time, including fevers, chills, cough. She states she lost her balance which caused her to fall. She denies any syncopal episodes or loss of consciousness. She is not on blood thinners. - Related Data Home Medications Medication Instructions Recorded Confirmed Metoclopramide [Reglan] 10 mg PO AC-TID 09/23/20 09/23/20 Previous Rx's Medication Instructions Recorded Doxylamine Succinate [Unisom] 25 mg PO HS #20 tablet 09/24/20 Nitrofurantoin Monohyd/M-Cryst 100 mg PO Q12HR #10 cap 09/24/20 [Macrobid] Pyridoxine HCl (Vitamin B6) 25 mg PO HS #20 tablet 09/24/20 [Pyridoxine HCl] HYDROcodone/APAP 7.5-325MG [[place] 1 tab PO Q6HR PRN 3 Days #12 tab 12/14/20 7.5-325] Allergies Allergy/AdvReac Type Severity Reaction Status Date / Time bee venom protein (honey bee) Allergy Swelling Verified 12/14/20 15:59 pineapple Allergy Swelling Verified 12/14/20 15:59 methylphenidate AdvReac Rapid Verified 12/14/20 15:59 [From Concerta] Heart Rate Review of Systems ROS Statement: Those systems with pertinent positive or pertinent negative responses have been documented in the HPI. Review of Systems: CONST: Denies fever EYES: Denies blurry vision ENT: Denies nasal congestion C/V: Denies Chest pain RESP: Denies shortness of breath GI: Denies abdominal pain : Denies dysuria SKIN: Denies rash. MSK: Endorses right knee pain NEURO: Denies headache ROS Other: All systems not noted in ROS Statement are negative. Past Medical History Past Medical History: No Reported History History of Any Multi-Drug Resistant Organisms: None Reported Past Surgical History: No Surgical Hx Reported Past Psychological History: ADD/ADHD, Anxiety, Depression Smoking Status: Current some day smoker Past Alcohol Use History: None Reported, Occasional Past Drug Use History: Marijuana General Exam - General Exam Comments Initial Comments: General: Appears in mild distress secondary to right knee pain. HEAD: Normal with no signs of head trauma. EYES: EOMI ENT: Hearing grossly intact, normal oropharynx. RESPIRATORY: No respiratory distress C/V: Peripheral pulses are 2+ and intact in all 4 extremities. ABD: Abd is soft, nontender, nondistended EXT: Patient is normal range of motion of the bilateral upper extremities and left lower extremity without any obvious deformity. Patient's right lower extremity is no obvious deformity. She does have reduced range of motion of the right knee secondary to pain. She is able to flex and extend somewhat, however it is painful. She is able to hold it in full extension. She is tender to palpation over bilateral joint lines and patella. Other than pain, exam is relatively unremarkable she is neurovascular intact throughout the right lower extremity. No pelvic tenderness palpation. SKIN: No rashes or lesions observed on exposed skin. NEURO: Alert and oriented 4. No focal sensory strength deficits. Limitations: no limitations Course Vital Signs 12/14/20 12/14/20 15:54 18:30 Temperature 97.6 F 98.0 F Pulse Rate 76 65 Respiratory 18 18 Rate Blood Pressure 125/70 107/65 O2 Sat by Pulse 99 99 Oximetry Medical Decision Making - Medical Decision Making Based on the patient's presentation and physical exam, I'm concerned for acute bony thoracic injury versus soft tissue injury the patient's right knee. She does have a history of a meniscus tear in this knee. We'll obtain a plain film x-ray mostly and she'll be given a [place] 5 for pain management. They were in agreement this plan. Patient's x-ray revealed no acute fracture or subluxation of the right knee. There is no sign of a joint effusion. On reevaluation, I informed the patient the results of her x-ray. She states pain is somewhat improved Loomis. She requires follow-up with orthopedic surgery at this time. She was in agreement with this plan. I will provide her with contact information for follow up as well as a [place] 7.5 prescription. Patient completed the opiate lets start talking form. She was in agreement this plan. She'll be given crutches and she can continue to wear the knee brace as needed and weight-bear as tolerated. I will provide the patient with a prescription for [place] 7.5. I instructed the patient to follow up with their PCP in the next 3 days. I provided contact information for follow up with Miki Lockhart. I explained that the patient should return to the emergency department if they experience any worsening symptoms. Strict return precautions were discussed with the patient. The patient expressed understanding of these instructions. I answered all questions that the patient had. The patient was discharged home in fair condition with their prescriptions and follow up information. Disposition Clinical Impression: Fall, Knee pain, Disposition: HOME SELF-CARE Condition: Fair Instructions (If sedation given, give patient instructions): Fall Prevention (ED) Prescriptions: HYDROcodone/APAP 7.5-325MG [[place] 7.5-325] 1 tab PO Q6HR PRN 3 Days #12 tab PRN Reason: Pain Is patient prescribed a controlled substance at d/c from ED?: Yes If prescribed controlled substance>3 days was MAPS reviewed?: Prescribed <3 Days Referrals: Anne Dan MD [Primary Care Provider] - 1-2 days Nithin Livingston PAC [PHYSICIAN PHOTOGRAPHY INTERN] - 1-2 days
[2020-12-14 18:35] VITALS: BP 107/65; PULSE 65; TEMP 98
== END 2020-12-14 18:31 | disposition home or self-care (01) ==
LOC: EC 15:36
DX: O26.892 Other specified pregnancy related conditions, second trimester (principal); M25.561 Pain in right knee; F90.9 Attention-deficit hyperactivity disorder, unspecified type; F41.9 Anxiety disorder, unspecified; F32.9 Major depressive disorder, single episode, unspecified; F17.200 Nicotine dependence, unspecified, uncomplicated; F12.90 Cannabis use, unspecified, uncomplicated; Z3A.22 22 weeks gestation of pregnancy
CPT/HCPCS: 99283

== ENCOUNTER 2021-01-23 18:36 | Outpatient (CLI) | payer OTHER ==
[2021-01-23 19:33] VITALS: BP 120/72; PULSE 73; RESP 16; TEMP 97.2
--- NOTE | 2021-02-04 07:19 | P.MSEPDOC ---
Presenting Problems - Arrival Data Date of Arrival on Unit: 01/23/21 Time of Arrival on Unit: 18:36 Mode of Transport: Ambulatory - Complaint OB-Reason for Admission/Chief Complaint: Pain Comment: Pt presents to triage with c/o of lower right sided back pain that radiates down the left leg, rated at a 5/10. Medical History - Information : 1 Para: 0 Term: 0 : 0 Abortions: Spontaneous or Elective: 0 Number of Living Children: 0 - Gestational Age Gestational Age by VIKI (wks/days): 28 Weeks and 1 Days - History Complications: Hx. Substance Abuse Comment: THC use Review of Systems - Review of Systems Constitutional: No problems Breast: No problems ENT: No problems Cardiovascular: No problems Respiratory: No problems Gastrointestinal: No problems Genitourinary: No problems Musculoskeletal: No problems Neurological: No problems Skin: No problems Vital Signs - Temperature Temperature: 97.2 F Temperature Source: Temporal Artery Scan - Pulse Right Brachial Pulse Rate: 73 Pulse Assessment Method: Automatic Cuff - Respirations Respiratory Rate: 16 Oxygen Delivery Method: Room Air O2 Sat by Pulse Oximetry: 97 - Blood Pressure Right Arm Blood Pressure: 120/72 Blood Pressure Mean: 88 Blood Pressure Source: Automatic Cuff Medical Screen Scoring - Assessment - Baby A Baseline FHR: 120 Heart Rate - NICHD Category: Category I (Normal) NST: Reactive Physician Notification - Physician Notified Physician Notified Date: 01/23/21 Physician Notified Time: 19:12 Physician: Lori Montaño Order Received: Yes (discharge) - Notification Comment Comment: Dr. Montaño called with report on paints complaint of pain in right lower back. that raidates down her right leg. Patient approved for discharge with education on. sciatica stretches and to follow up with a chiropractor. Maternal Triage Index - Maternal Triage Index Presenting for scheduled procedure w/no complaint: No - Stat/Priority 1 Stat Priority 1: No - Urgent/Priority 2 Urgent Priority 2: No - Prompt/Priority 3 Prompt Priority 3: No - Non-Urgent/Priority 4 Non-Urgent Priority 4: Yes Criteria Met for Priority 4: Pt presents to triage with c/o of lower right sided back pain that radiates down the left leg, rated at a 5/10. Disposition - Disposition OB Disposition: Discharge to home Discharge Date: 01/23/21 Discharge Time: 19:20 I agree with the RN Medical Screening Exam: Yes Case reviewed; plan agreed upon as documented in EMR&OBIX.: Yes Diagnosis: LOW BACK PAIN
== END 2021-01-23 19:20 ==
LOC: FBPOP 18:36
PROVIDERS: ATTEND Obstetrics & Gynecology
DX: O26.893 Other specified pregnancy related conditions, third trimester (principal); M54.50 Low back pain, unspecified; Z3A.28 28 weeks gestation of pregnancy; Z91.030 Bee allergy status; Z88.8 Allergy status to other drugs, medicaments and biological substances; Z91.018 Allergy to other foods
CPT/HCPCS: 59025; G0463; 99213

== ENCOUNTER 2021-02-24 20:23 | Emergency (ER) | payer OTHER ==
[2021-02-24 22:42] VITALS: RESP 18
[2021-02-24] MEDS ORDERED: SODIUM CHLORIDE 0.9% 50 ML IVPB ONE (23:30)
[2021-02-24] MEDS ORDERED: CASIRIVIMAB/IMDEVIMAB (EUA) 1,200 MG in SODIUM CHLORIDE 0.9% 100 ML IVPB ONE (23:30)
--- NOTE | 2021-02-25 00:12 | ED ---
General Adult HPI - General Chief complaint: Recheck/Abnormal Lab/Rx Stated complaint: COVID exposure-32 wks pg Time Seen by Provider: 02/24/21 22:56 Source: patient Mode of arrival: ambulatory Limitations: no limitations - History of Present Illness Initial comments: This patient is 20-year-old woman who presents with concern that she believes she has covid infection. Patient states that starting today she was having rhinorrhea, chills, and a little bit of mild diffuse headache. She states that her boyfriend was having similar upper respiratory symptoms and tested positive for covid infection. Onset/Timin -: days(s) Location: head Radiation: non-radiation Quality: dull Consistency: constant Improves with: none Worsens with: none Associated Symptoms: fever/chills, other (Rhinorrhea) - Related Data Home Medications Medication Instructions Recorded Confirmed Pyridoxine HCl (Vitamin B6) 50 mg PO HS 02/24/21 02/24/21 [Pyridoxine HCl] Previous Rx's Medication Instructions Recorded Doxylamine Succinate [Unisom] 25 mg PO HS #20 tablet 09/24/20 Allergies Allergy/AdvReac Type Severity Reaction Status Date / Time bee venom protein (honey bee) Allergy Swelling Verified 02/24/21 23:38 pineapple Allergy Swelling Verified 02/24/21 23:38 methylphenidate AdvReac Rapid Verified 02/24/21 23:38 [From Concerta] Heart Rate Review of Systems ROS Statement: Those systems with pertinent positive or pertinent negative responses have been documented in the HPI. ROS Other: All systems not noted in ROS Statement are negative. Constitutional: Reports: chills. Denies: fever Eyes: Denies: eye pain, eye discharge ENT: Reports: congestion. Denies: throat pain Respiratory: Denies: cough, dyspnea Cardiovascular: Denies: chest pain, palpitations, edema Gastrointestinal: Denies: abdominal pain, vomiting, diarrhea Genitourinary: Denies: dysuria, hematuria, discharge Musculoskeletal: Denies: back pain Skin: Denies: rash Neurological: Reports: headache Past Medical History Past Medical History: No Reported History History of Any Multi-Drug Resistant Organisms: None Reported Past Surgical History: No Surgical Hx Reported Past Psychological History: ADD/ADHD, Anxiety, Depression Smoking Status: Former smoker Past Alcohol Use History: None Reported Past Drug Use History: None Reported General Exam Limitations: no limitations General appearance: alert, in no apparent distress Head exam: Present: atraumatic, normocephalic Eye exam: Present: normal appearance. Absent: scleral icterus, conjunctival injection ENT exam: Present: normal oropharynx Respiratory exam: Present: normal lung sounds bilaterally. Absent: respiratory distress, wheezes, rales, rhonchi, stridor Cardiovascular Exam: Present: regular rate, normal rhythm, normal heart sounds. Absent: systolic murmur, diastolic murmur, rubs, gallop GI/Abdominal exam: Present: soft, other (Fundus palpable well above umbilicus). Absent: distended, tenderness, guarding, rebound, rigid, mass Extremities exam: Present: normal inspection, normal capillary refill. Absent: pedal edema, calf tenderness Back exam: Present: normal inspection. Absent: CVA tenderness (R), CVA tenderness (L) Neurological exam: Present: alert Skin exam: Present: warm, dry, intact, normal color. Absent: rash Course Vital Signs 02/24/21 02/24/21 02/25/21 20:25 22:39 01:52 Temperature 98.7 F 98.1 F Pulse Rate 99 104 H 92 Respiratory 20 18 18 Rate Blood Pressure 111/78 122/100 99/61 O2 Sat by Pulse 99 100 100 Oximetry Medical Decision Making - Lab Data Lab Results 02/24/21 Range/Units 20:29 Coronavirus (PCR) Detected A (Not Detectd) Disposition Clinical Impression: COVID-19 Disposition: HOME SELF-CARE Condition: Good Instructions (If sedation given, give patient instructions): Coronavirus Disease 2019 (COVID-19) Is patient prescribed a controlled substance at d/c from ED?: No Referrals: Anne Dan MD [Primary Care Provider] - 1-2 days
[2021-02-25 01:59] VITALS: BP 99/61; PULSE 92; TEMP 98.1
== END 2021-02-25 01:58 | disposition home or self-care (01) ==
LOC: EC 20:23
DX: U07.1 COVID-19 (principal)
CPT/HCPCS: 87635; 99284; Q0243

== ENCOUNTER 2021-03-22 20:46 | Outpatient (CLI) | payer OTHER ==
[2021-03-22 21:05] LABS: Appearance,Urine Clear (Clear); Bilirubin,Urine Negative (Negative); Blood,Urine Negative (Negative); Color,Urine Yellow; Glucose,Urine (UA) Negative (Negative); Ketones,Urine Negative (Negative); Leukocyte Esterase,Urine Negative (Negative); Nitrite,Urine Negative (Negative); Protein,Urine Trace (Negative); Specific Gravity,Urine 1.026 (1.001-1.035); Urobilinogen,Urine <2.0 mg/dL (<2.0)
[2021-03-22 22:50] VITALS: BP 119/89; PULSE 88; RESP 16; TEMP 96.8
--- NOTE | 2021-03-24 08:46 | P.MSEPDOC ---
Presenting Problems - Arrival Data Date of Arrival on Unit: 03/22/21 Time of Arrival on Unit: 20:46 Mode of Transport: Wheelchair - Complaint OB-Reason for Admission/Chief Complaint: Pain Comment: Pt states back pain and right sided groin pain along with pelvic pressure. rating 8/10. Pt states increased freqency with urination. urinalysis sent Medical History - Information : 1 Para: 0 Term: 0 : 0 Abortions: Spontaneous or Elective: 0 Number of Living Children: 0 - Gestational Age Gestational Age by VIKI (wks/days): 36 Weeks and 3 Days Review of Systems - Review of Systems Constitutional: No problems Breast: No problems ENT: No problems Cardiovascular: No problems Respiratory: No problems Gastrointestinal: No problems Genitourinary: Increased frequency Musculoskeletal: No problems Neurological: No problems Skin: No problems Vital Signs - Temperature Temperature: 96.8 F Temperature Source: Temporal Artery Scan - Pulse Pulse Oximetery Pulse Rate: 88 Pulse Assessment Method: Automatic Cuff - Respirations Respiratory Rate: 16 Oxygen Delivery Method: Room Air O2 Sat by Pulse Oximetry: 98 - Blood Pressure Right Arm Blood Pressure: 119/89 Blood Pressure Mean: 99 Blood Pressure Source: Automatic Cuff Medical Screen Scoring - Cervical Exam Dilation (cm): 2 Effacement (%): 50 Station: -3 Membranes: Intact - Assessment - Baby A Baseline FHR: 135 Heart Rate - NICHD Category: Category I (Normal) NST: Reactive Physician Notification - Physician Notified Physician Notified Date: 03/22/21 Physician Notified Time: 22:19 Physician: Dr. Dixon New Order Received: No - Notification Comment Comment: orders to discharge patient home, educate patient if needed she can take tylenol for pain, pain is most likey due to gestional age 36 weeks and 3 days and babys position,and keep well hydrated with water. Maternal Triage Index - Maternal Triage Index Presenting for scheduled procedure w/no complaint: No - Stat/Priority 1 Stat Priority 1: No - Urgent/Priority 2 Urgent Priority 2: No - Prompt/Priority 3 Prompt Priority 3: Yes Criteria Met for Priority 3: Pt states back pain and right sided groin pain along with pelvic pressure rating 8/10, Pt states increased freqency with urination. urinalysis sent and reviewed with Dr. Dixon, no cervical change after and hour 2, 50%, -3 Disposition - Disposition OB Disposition: Discharge to home Discharge Date: 03/22/21 Discharge Time: 22:31 I agree with the RN Medical Screening Exam: Yes Case reviewed; plan agreed upon as documented in EMR&OBIX.: Yes Diagnosis: RELATED CONDITIONS, UNSPECIFIED, THIRD TRIMESTER
== END 2021-03-22 22:31 | disposition home or self-care (01) ==
LOC: FBPOP 20:46
PROVIDERS: ATTEND Obstetrics & Gynecology
DX: O99.891 Other specified diseases and conditions complicating pregnancy (principal); M54.9 Dorsalgia, unspecified; O26.893 Other specified pregnancy related conditions, third trimester; R10.30 Lower abdominal pain, unspecified; R35.0 Frequency of micturition; O99.333 Smoking (tobacco) complicating pregnancy, third trimester; F17.200 Nicotine dependence, unspecified, uncomplicated; Z3A.36 36 weeks gestation of pregnancy; Z91.030 Bee allergy status; Z91.018 Allergy to other foods; Z88.8 Allergy status to other drugs, medicaments and biological substances
CPT/HCPCS: 59025; 81003; G0463; 99213

== ENCOUNTER 2021-04-10 06:15 | Inpatient (IN) | payer OTHER ==
[2021-04-10] MEDS ORDERED: TERBUTALINE 1 MG/ML VIAL SQ PRN (06:54)
[2021-04-10] MEDS ORDERED: CARBOPROST TROMETHAMINE 250 MCG/ML 1 ML AMP IM PRN (06:54)
[2021-04-10] MEDS ORDERED: METHYLERGONOVINE 0.2 MG/ML 1 ML AMP IM PRN (06:54)
[2021-04-10] MEDS ORDERED: OXYTOCIN 10 UNIT/ML 1 ML VIAL IM PRN (06:54)
[2021-04-10] MEDS ORDERED: LIDOCAINE 0.5% (PF) 5 MG/ML (50 ML SDV) SQ PRN (06:54)
[2021-04-10] MEDS ORDERED: OXYTOCIN 30 UNITS/500 ML NS 30 UNIT in SALINE 1 500ML.BAG IV SCH (07:00)
[2021-04-10] MEDS: LACTATED RINGERS 1,000 ML IV SCH ×2 (07:09→15:28)
[2021-04-10 07:24] LABS: Basophils % (A) 0 %; Eosinophils # (A) 0.1 k/uL (0-0.7); Eosinophils % (A) 1 %; HGB 10.8 gm/dL (11.4-16.0); Hypochromasia Slight; Lymphocytes # (A) 2.5 k/uL (1.0-4.8); Lymphocytes % (A) 27 %; MCH 27.9 pg (25.0-35.0); MCHC 31.8 g/dL (31.0-37.0); MCV 87.6 fL (80.0-100.0); Mean Platelet Volume 10.3; Monocytes # (A) 0.5 k/uL (0-1.0); Monocytes % (A) 5 %; Neutrophils # (A) 5.9 k/uL (1.3-7.7); Neutrophils % (A) 65 %; Platelet Count 230 k/uL (150-450); RBC 3.88 m/uL (3.80-5.40); RDW 15.3 % (11.5-15.5); WBC 9.1 k/uL (3.8-10.6)
[2021-04-10] MEDS ORDERED: ROPIVACAINE 5MG/ML 20ML VIAL ONE (09:54)
[2021-04-10] MEDS ORDERED: fentaNYL (PF) 50 MCG/ML 5 ML AMP ONE (09:54)
[2021-04-10] MEDS ORDERED: SODIUM CHLORIDE 0.9% 100 ML BAG ONE (09:54)
[2021-04-10] MEDS ORDERED: diphenhydrAMINE 50 MG/ML 1 ML VIAL IVP PRN ×2 (12:48)
[2021-04-10] MEDS ORDERED: BENZOCAINE/MENTHOL SPRAY 1 GM/SPRAY AEROSOL TOPICAL PRN (12:48)
[2021-04-10] MEDS ORDERED: diphenhydrAMINE 25 MG CAP PO PRN (12:48)
[2021-04-10] MEDS ORDERED: HYDROCORTISONE 2.5% RECTAL CREAM 30 GM TUBE RECTAL PRN (12:48)
[2021-04-10] MEDS ORDERED: SIMETHICONE 80 MG CHEWABLE PO PRN (12:48)
[2021-04-10] MEDS ORDERED: ZOLPIDEM 5 MG TAB PO PRN (12:48)
[2021-04-10] MEDS ORDERED: diphenhydrAMINE 50 MG CAP PO PRN (12:48)
[2021-04-10] MEDS ORDERED: LANOLIN CREAM 5 GM TUBE TOPICAL PRN (12:48)
--- NOTE | 2021-04-10 12:51 | P.HPOB ---
History of Present Illness H&P Date: 04/10/21 Chief Complaint: Intrauterine at term: Induction of labor Patient is a 20-year-old female at 39 weeks gestation arise for induction of labor. She was initially dilated to 3/2 cm 90% effaced -2 station and artificial rupture membranes was performed with clear fluid noted. There is some question as whether not she had spontaneous rupture shortly before I saw her that I didn't feel a bag. heart tones reveal a category 1 tracing and she is doing well otherwise. Her course was uncomplicated and she has received care since approximately 11 weeks. Ultrasounds verify dating and she is feeling well at this time. Pertinent labs include O+ blood type, Rh antibody was negative, rubella is immune, hepatitis B surface antigen/RPR/HIV and GBS were all negative. Assessment intrauterine Brixey term. Plan expect spontaneous vaginal delivery and use of epidural for analgesia. Past Medical History Past Medical History: No Reported History History of Any Multi-Drug Resistant Organisms: None Reported Past Surgical History: No Surgical Hx Reported Past Anesthesia/Blood Transfusion Reactions: No Reported Reaction Past Psychological History: ADD/ADHD, Anxiety, Depression Smoking Status: Former smoker Past Alcohol Use History: None Reported Past Drug Use History: Marijuana Medications and Allergies Allergies Allergy/AdvReac Type Severity Reaction Status Date / Time bee venom protein (honey bee) Allergy Swelling Verified 04/10/21 06:54 pineapple Allergy Swelling Verified 04/10/21 06:54 methylphenidate AdvReac Rapid Verified 04/10/21 06:54 [From Concerta] Heart Rate Exam Osteopathic Statement: *. No significant issues noted on an osteopathic structural exam other than those noted in the History and Physical/Consult. Vital Signs Temp Pulse Resp BP Pulse Ox 04/10/21 12:33 97.2 F L 64 16 115/73 04/10/21 06:59 97.1 F L 73 16 130/86 98 Intake and Output 04/09/21 04/10/21 04/10/21 22:59 06:59 14:59 Other: Weight 107.955 kg - OBG Physical Exam Breast: both: normal (no masses) Abdomen: bowel sounds normal, no diffuse tenderness, no bruit present, no guarding noted, no hepatomegaly, no splenomegaly, no mass Vulva: Obesity Vulva: both: normal Vagina: normal moisture, no discharge Cervix: no lesion, no discharge Uterus: normal size, normal contour Adnexa: both: normal Anus/Rectum: normal perianal skin, no rectal mass, no hemorrhoids, heme negative Results Result Diagrams: 04/10/21 07:10 Abnormal Lab Results - Last 24 Hours (Table) 04/10/21 Range/Units 07:10 Hgb 10.8 L (11.4-16.0) gm/dL
--- NOTE | 2021-04-10 12:53 | P.PROBDLV ---
Vaginal Delivery Note - . Vaginal Delivery Note: Progressed complete and pushing with spontaneous vaginal delivery of a viable female over a third-degree perineal laceration. Falling deliver the head a nuchal cord 1 was easily reduced and the baby was delivered with gentle downward and upward traction from left occiput anterior position. Once baby was fully delivered mouth nares were bulb suctioned and baby was placed on mother's abdomen where the umbilical cord was allowed to pulsate for 30 seconds prior to clamping and cutting. Nursery personnel was present and some care. Placenta was then delivered intact and Pitocin was added to the IV. Once completed lidocaine was used for analgesia and a third-degree perineal laceration was repaired by first placing a deep layer of 3-0 Vicryl followed by repair of the remainder as an 8 normal episiotomy repair. She also had a left vaginal wall laceration that was repaired with interrupted suture to obtain excellent hemostasis through the area. All instruments were accounted for 10 sponges were counted sharp removed from the operative field and delivery area and patient was noted to be stable. scores were 9 and 9 at one and 5 minutes respectively and the weight was 7 lbs. 3 oz.
[2021-04-10] MEDS: IBUPROFEN 600 MG TAB PO SCH ×2 (13:11→20:14)
[2021-04-10] MEDS: ACETAMINOPHEN TAB 325 MG TAB PO PRN (16:13)
[2021-04-10] MEDS: SENNOSIDES-DOCUSATE SODIUM 1 EACH TAB PO SCH (20:14)
[2021-04-11] MEDS: ACETAMINOPHEN TAB 325 MG TAB PO PRN ×2 (00:26→08:22)
[2021-04-11] MEDS: IBUPROFEN 600 MG TAB PO SCH ×4 (04:26→20:00)
--- NOTE | 2021-04-11 07:15 | P.PNOBGVD ---
Subjective - Subjective Patient reports: Reports appetite normal, Reports voiding normally, Reports pain well controlled, Reports ambulating normally : doing well Objective - Latest Vital Signs Latest vital signs: Vital Signs Temp Pulse Resp BP Pulse Ox 04/11/21 00:00 98.0 F 80 16 129/87 04/10/21 20:00 98.2 F 79 16 125/71 98 04/10/21 16:00 97.1 F L 65 17 115/78 04/10/21 14:33 96.7 F L 74 17 108/64 04/10/21 14:03 66 17 105/69 04/10/21 13:33 62 17 130/76 04/10/21 13:18 73 16 130/78 04/10/21 13:03 67 16 113/73 04/10/21 12:48 66 16 115/72 04/10/21 12:33 97.2 F L 64 16 115/73 Intake and Output 04/10/21 04/11/21 04/11/21 22:59 06:59 14:59 Other: # Voids 1 2 - Exam Lungs: bilateral: normal Chest: Normal S1, Normal S2 Extremities: Present: normal Abdomen: Present: normal appearance, soft Uterus: Present: normal, firm - Labs Labs: Abnormal Lab Results - Last 24 Hours (Table) 04/10/21 Range/Units 07:10 Hgb 10.8 L (11.4-16.0) gm/dL Assessment and Plan Assessment: Post day #1. Patient is resting without complaints and wishes to go home. Vital signs are stable she is afebrile. Uterus is firm nontender and she is having normal lochia. My impression this is a normal course. Plan is to continue routine care and discharge home follow up with Dr. Vinson in 6 weeks. (1) Vaginal delivery Current Visit: Yes Status: Acute Code(s): O80 - ENCOUNTER FOR FULL-TERM UNCOMPLICATED DELIVERY SNOMED Code(s): 920629032
--- NOTE | 2021-04-11 07:20 | P.DS ---
Providers Date of admission: 04/10/21 06:47 Expected date of discharge: 04/11/21 Attending physician: Naresh Vinson Primary care physician: Stated None - Discharge Diagnosis(es) (1) Vaginal delivery Current Visit: Yes Status: Acute Hospital Course: Please see dictated H&P for intimate details of this patient's admission. In brief summary this is a 20-year-old 1 para 0 female 39 and one sevenths weeks gestation who is admitted to labor and delivery for elective induction per Dr. Vinson. Patient subsequently goes on to have a vaginal delivery of viable female infant. Please see dictated delivery note. day #1 patient's feeling well wishes to go home. Patient's felt to be stable for discharge home follow with Dr. Vinson in 6 weeks. Procedures: Induction of labor and normal vaginal delivery Plan - Discharge Summary New Discharge Prescriptions: New Ibuprofen [Motrin] 600 mg PO Q6H #30 tab Discharge Medication List Ibuprofen [Motrin] 600 mg PO Q6H #30 tab 04/11/21 [Rx] Follow up Appointment(s)/Referral(s): Naresh Vinson DO [Doctor of Osteopathic Medicine] - 05/20/21 10:45 am Patient Instructions/Handouts: Vaginal Delivery (DC) Activity/Diet/Wound Care/Special Instructions: No intercourse or anything per vagina for 6 weeks. Please call if any fever, chills, excessive vaginal bleeding, and/or abdominal pain. Discharge Disposition: HOME SELF-CARE
[2021-04-11] MEDS: SENNOSIDES-DOCUSATE SODIUM 1 EACH TAB PO SCH ×2 (08:22→20:00)
[2021-04-11 11:32] VITALS: RESP 18
[2021-04-11 19:56] VITALS: BP 120/85; PULSE 73; TEMP 98.1
== END 2021-04-11 16:15 | disposition home or self-care (01) | DRG 768 ==
LOC: 4FBP 06:47
PROVIDERS: ADMIT Obstetrics & Gynecology; ATTEND Obstetrics & Gynecology
PROC: 10E0XZZ Delivery of Products of Conception, External Approach (ICD-10-PCS; principal; 2021-04-10)
PROC: 0DQR0ZZ Repair Anal Sphincter, Open Approach (ICD-10-PCS; 2021-04-10)
DX: O69.81X0 Labor and delivery complicated by cord around neck, without compression, not applicable or unspecified (principal); Z37.0 Single live birth; O70.20 Third degree perineal laceration during delivery, unspecified; F32.A Depression, unspecified; F41.9 Anxiety disorder, unspecified; F90.9 Attention-deficit hyperactivity disorder, unspecified type; O99.344 Other mental disorders complicating childbirth; Z3A.39 39 weeks gestation of pregnancy; Z87.891 Personal history of nicotine dependence
CPT/HCPCS: 85025; 86850; 86900; 86901

== ENCOUNTER 2021-04-17 23:01 | Emergency (ER) | payer OTHER ==
--- NOTE | 2021-04-18 00:23 | ED ---
Fall HPI - General Chief Complaint: Fall Stated Complaint: Female Time Seen by Provider: 04/17/21 23:33 Source: patient Mode of arrival: ambulatory - History of Present Illness Initial Comments: Patient states that she slipped and fell about 2 days ago. Patient states her knees give out frequently because she has bad knees. Patient denies any injury but states when she slipped she believes she tore one of her perineal sutures. Patient is 7 days . Patient still having rubra lochia. She denies any other injuries or complaints. No headache, no fever or chills, no changes in vision or hearing, no sore throat or difficulty with speech, no neck pain, no chest pain or shortness of breath, no abdominal pain, no nausea or vomiting, no changes in urination or bowel movements, no numbness or tingling, no extremity pain, no skin rashes or lesions. - Related Data Previous Rx's Medication Instructions Recorded Ibuprofen [Motrin] 600 mg PO Q6H #30 tab 04/11/21 Allergies Allergy/AdvReac Type Severity Reaction Status Date / Time bee venom protein (honey bee) Allergy Swelling Verified 04/17/21 23:03 pineapple Allergy Swelling Verified 04/17/21 23:03 methylphenidate AdvReac Rapid Verified 04/17/21 23:03 [From Concerta] Heart Rate Review of Systems ROS Statement: Those systems with pertinent positive or pertinent negative responses have been documented in the HPI. ROS Other: All systems not noted in ROS Statement are negative. Past Medical History Past Medical History: No Reported History History of Any Multi-Drug Resistant Organisms: None Reported Past Surgical History: No Surgical Hx Reported Past Anesthesia/Blood Transfusion Reactions: No Reported Reaction Past Psychological History: ADD/ADHD, Anxiety, Depression Smoking Status: Former smoker Past Alcohol Use History: None Reported Past Drug Use History: Marijuana General Exam - General Exam Comments Initial Comments: Nontoxic-appearing female in no distress. Limitations: no limitations General appearance: alert, in no apparent distress Head exam: Present: atraumatic, normocephalic, normal inspection Eye exam: Present: normal appearance, PERRL, EOMI. Absent: scleral icterus, conjunctival injection, periorbital swelling ENT exam: Present: normal exam, mucous membranes moist Neck exam: Present: normal inspection. Absent: tenderness, meningismus, lymp hadenopathy Respiratory exam: Present: normal lung sounds bilaterally. Absent: respiratory distress, wheezes, rales, rhonchi, stridor Cardiovascular Exam: Present: regular rate, normal rhythm, normal heart sounds. Absent: systolic murmur, diastolic murmur, rubs, gallop, clicks GI/Abdominal exam: Present: soft, normal bowel sounds. Absent: distended, tenderness, guarding, rebound, rigid External exam: Present: other (Chaperoned external pelvic examination reveals sutures in place, appears to be absorbable sutures. There may be one disrupted. However no significant dehiscence.). Absent: erythema, swelling, lesions, ecchymosis Extremities exam: Present: normal inspection, full ROM, normal capillary refill. Absent: tenderness, pedal edema, joint swelling, calf tenderness Back exam: Present: normal inspection Neurological exam: Present: alert, oriented X3, CN II-XII intact Psychiatric exam: Present: normal affect, normal mood Skin exam: Present: warm, dry, intact, normal color. Absent: rash Course Vital Signs 04/17/21 23:03 Temperature 97.9 F Pulse Rate 59 L Respiratory 18 Rate Blood Pressure 147/86 O2 Sat by Pulse 98 Oximetry Medical Decision Making - Medical Decision Making Patient had one disrupted. Perineal suture with in place several sutures otherwise. No evidence of significant dehiscence. 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 Patient in no distress otherwise. Patient was told to return to the ER for any signs or symptoms worsen. Told to return immediately if any other problems arise. All questions answered. Treatment plan discussed. Patient in agreement Disposition Clinical Impression: Wound dehiscence in puerperium, perineal Disposition: HOME SELF-CARE Condition: Good Instructions (If sedation given, give patient instructions): Sitz Bath (DC), Episiotomy (DC) Additional Instructions: Follow-up with your ART COORDINATOR physician on Tuesday. Is patient prescribed a controlled substance at d/c from ED?: No Referrals: Naresh Vinson DO [Doctor of Osteopathic Medicine] - 04/20/21 Time of Disposition: 00:05
[2021-04-18 00:56] VITALS: BP 130/83; PULSE 62; RESP 16; TEMP 97.8
== END 2021-04-18 00:50 | disposition home or self-care (01) ==
LOC: EC 23:01
DX: O90.1 Disruption of perineal obstetric wound (principal); F41.9 Anxiety disorder, unspecified; F32.A Depression, unspecified; F12.90 Cannabis use, unspecified, uncomplicated; Z87.891 Personal history of nicotine dependence
CPT/HCPCS: 99283

== ENCOUNTER 2021-04-22 20:19 | Emergency (ER) | payer OTHER ==
[2021-04-22 20:30] VITALS: BP 119/75; PULSE 83; RESP 20; TEMP 98.1
[2021-04-22] MEDS ORDERED: ACETAMINOPHEN TAB 500 MG TAB PO STA (20:56)
[2021-04-22] MEDS ORDERED: KETOROLAC 15 MG/ML 1 ML VIAL IM STA (20:56)
--- NOTE | 2021-04-22 21:09 | ED ---
Headache HPI - General Chief Complaint: Headache Stated Complaint: Headache Time Seen by Provider: 04/22/21 20:49 Source: RN notes reviewed Mode of arrival: ambulatory Limitations: no limitations - History of Present Illness Initial Comments: This is a 20-year-old female with a history of headaches. She presents with a headache which has been present for the last 3 days. She states it waxes and wanes in intensity. It did come on insidiously. She denies any other symptomology. No fever or chills. No nausea or vomiting. No change in vision or hearing. No slurred speech. No vertigo. No balance problems. No difficulty swallowing. No stiff neck. Patient states she usually takes acetaminophen and ibuprofen at home. She previously has been diagnosed with headaches by her doctor. She states this is consistent with what she has felt in the past. It is questionable whether the patient has been previously diagnosed with migraine headaches. She states she has no other symptomology. Headache is frontal, NSAIDs and acetaminophen to help the pain but did not get rid of it. No other exacerbating or alleviating factors. Aching and dull in nature no fever or chills, no changes in vision or hearing, no sore throat or difficulty with speech, no neck pain, no chest pain or shortness of breath, no abdominal pain, no nausea or vomiting, no changes in urination or bowel movements, no numbness or tingling, no extremity pain, no skin rashes or lesions. Note the patient has a new baby at home and does have some sleep disturbance. 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 Patient is not breast feeding baby. - Related Data Previous Rx's Medication Instructions Recorded Acetaminophen [Tylenol] 500 mg PO Q4-6H PRN #24 tab 04/22/21 Naproxen [Naprosyn] 375 mg PO Q12HR PRN #20 tablet 04/22/21 Allergies Allergy/AdvReac Type Severity Reaction Status Date / Time bee venom protein (honey bee) Allergy Swelling Verified 04/22/21 21:05 pineapple Allergy Swelling Verified 04/22/21 21:05 methylphenidate AdvReac Rapid Verified 04/22/21 21:05 [From Concerta] Heart Rate Review of Systems ROS Statement: Those systems with pertinent positive or pertinent negative responses have been documented in the HPI. ROS Other: All systems not noted in ROS Statement are negative. Past Medical History Past Medical History: No Reported History History of Any Multi-Drug Resistant Organisms: None Reported Past Surgical History: No Surgical Hx Reported Past Anesthesia/Blood Transfusion Reactions: No Reported Reaction Past Psychological History: ADD/ADHD, Anxiety, Depression Smoking Status: Former smoker Past Alcohol Use History: None Reported Past Drug Use History: Marijuana General Exam - General Exam Comments Initial Comments: Nontoxic-appearing 20-year-old female in no distress. Patient does not appear to be ill or otherwise in any significant distress. Limitations: no limitations General appearance: alert, in no apparent distress Head exam: Present: atraumatic, normocephalic, normal inspection Eye exam: Present: normal appearance, PERRL, EOMI. Absent: scleral icterus, conjunctival injection, nystagmus, periorbital swelling Pupils: Absent: unequal ENT exam: Present: normal exam, normal oropharynx, mucous membranes dry, mucous membranes moist, TM's normal bilaterally, normal external ear exam Neck exam: Present: normal inspection. Absent: tenderness, meningismus, lymphadenopathy Respiratory exam: Present: normal lung sounds bilaterally. Absent: respiratory distress, wheezes, rales, rhonchi, stridor Cardiovascular Exam: Present: regular rate, normal rhythm, normal heart sounds. Absent: systolic murmur, diastolic murmur, rubs, gallop, clicks GI/Abdominal exam: Present: soft, normal bowel sounds. Absent: distended, tenderness, guarding, rebound, rigid Extremities exam: Present: normal inspection, full ROM, normal capillary refill. Absent: tenderness, pedal edema, joint swelling, calf tenderness Back exam: Present: normal inspection Neurological exam: Present: alert, oriented X3, CN II-XII intact, normal gait. Absent: altered, abnormal gait, motor sensory deficit Psychiatric exam: Present: normal affect, normal mood. Absent: depressed, agitated, anxious Skin exam: Present: warm, dry, intact, normal color. Absent: rash Course Vital Signs 04/22/21 20:28 Temperature 98.1 F Pulse Rate 83 Respiratory 20 Rate Blood Pressure 119/75 O2 Sat by Pulse 98 Oximetry - Reevaluation(s) Reevaluation #1: 04/22/21 21:42 Medical record is reviewed Symptoms are improved here in the emergency department Patient is informed of results and questions answered Patient in no distress Medical Decision Making - Medical Decision Making Patient no acute distress. I suspect the patient has a tension headache based on her symptomology. Patient states it is a dull headache across the frontal region. No neck stiffness. No aura. No neurological abnormality. No vision or hearing disturbance. We'll treat with one dose of ketorolac as well as acetaminophen here. Labs the patient use [id number] anti-inflammatories and acetaminophen at home. We'll have her follow-up with her regular physician. Patient concurs with this treatment plan. All questions answered. Follow-up with your regular physician as directed. Return to the ER immediately if any symptoms worsen, new symptoms arise, or any other problems develop. Disposition Clinical Impression: Tension headache Disposition: HOME SELF-CARE Condition: Stable Instructions (If sedation given, give patient instructions): Acute Headache (ED) Additional Instructions: Follow-up with your regular physician. Call tomorrow morning for follow-up appointment. Follow-up with your regular physician as directed. Return to the ER immediately if any symptoms worsen, new symptoms arise, or any other problems develop. Discontinued the ibuprofen. Try the Naprosyn for your headaches. You can take this with the acetaminophen. Prescriptions: Naproxen [Naprosyn] 375 mg PO Q12HR PRN #20 tablet PRN Reason: Pain Acetaminophen [Tylenol] 500 mg PO Q4-6H PRN #24 tab PRN Reason: Pain Is patient prescribed a controlled substance at d/c from ED?: No Referrals: Anne Dan MD [Primary Care Provider] - 1-2 days Time of Disposition: 21:41
== END 2021-04-22 22:05 | disposition home or self-care (01) ==
LOC: EC 20:19
DX: G44.209 Tension-type headache, unspecified, not intractable (principal); F41.9 Anxiety disorder, unspecified; F32.A Depression, unspecified; F12.90 Cannabis use, unspecified, uncomplicated; Z87.891 Personal history of nicotine dependence
CPT/HCPCS: 99283; 96372; J1885

== ENCOUNTER → 2021-05-08 | Outpatient (CLI) | payer OTHER ==
--- NOTE | 2021-05-09 01:45 | MR ---
EXAMINATION TYPE: MR brain wo con DATE OF EXAM: 05/08/2021 COMPARISON: None HISTORY: G89.29 Pain R51.9 Headache, Migrains not improving Multiplanar multiecho imaging of the brain without contrast. Ventricles and sulci appear normal. There is no mass effect or midline shift. There is no sign of int racranial hemorrhage. Diffusion images show no evidence of an acute infarct. Sella turcica appears no rmal. Corpus callosum appears normal. There is no evidence of posterior fossa mass. The brainstem [place] ears intact. Aguilar-white matter structures have normal signal pattern. There is no evidence of cerebra l edema. There is no evidence of orbital mass. IMPRESSION: Negative MR scan of the brain.
== END | disposition home or self-care (01) ==
LOC: RADMRIMAIN 09:44
PROVIDERS: ATTEND Family Medicine
DX: R51.9 Headache, unspecified (principal); G89.29 Other chronic pain
CPT/HCPCS: 70551

== ENCOUNTER 2021-07-04 15:48 | Emergency (ER) | payer OTHER ==
[2021-07-04 16:12] VITALS: BP 118/76; PULSE 75; RESP 18; TEMP 98.1
--- NOTE | 2021-07-04 17:43 | ED ---
General Adult HPI - General Chief complaint: Urogenital Stated complaint: Recheck-unable to urinate Time Seen by Provider: 07/04/21 17:40 Source: patient Mode of arrival: ambulatory Limitations: no limitations - History of Present Illness Initial comments: Patient returns to the ED stating that she has not urinated since she was in the ED last night. Patient reports having left flank pain radiating to the left side of her abdomen for the past 4 days or so, and she reports having a history of renal stones. Patient had a CT scan done yesterday in the ED, which did not demonstrate any renal or ureteral calculi, hydronephrosis or definite explanation for the patient's pain. Patient denies trauma or injury, fever or chills, headache, focal neuro deficit, chest pain or pressure, dyspnea, cough or cold symptoms, dizziness, nausea/vomiting/diarrhea, constipation, bloody or melanotic stool, dysuria/hematuria/urinary frequency, vaginal discharge or bleeding, leg pain/numbness/weakness, incontinence, or any other symptoms or complaints. Patient states that she has been drinking plenty of fluids. - Related Data Previous Rx's Medication Instructions Recorded HYDROcodone/APAP 5-325MG [[place] 1 tab PO Q4HR PRN 3 Days #12 tab 07/03/21 5-325] Tamsulosin [Flomax] 0.4 mg PO DAILY #14 cap 07/03/21 Allergies Allergy/AdvReac Type Severity Reaction Status Date / Time bee venom protein (honey bee) Allergy Swelling Verified 07/04/21 19:38 pineapple Allergy Swelling Verified 07/04/21 19:38 methylphenidate AdvReac Rapid Verified 07/04/21 19:38 [From Concerta] Heart Rate Review of Systems ROS Statement: Those systems with pertinent positive or pertinent negative responses have been documented in the HPI. ROS Other: All systems not noted in ROS Statement are negative. Past Medical History Past Medical History: No Reported History History of Any Multi-Drug Resistant Organisms: None Reported Past Surgical History: No Surgical Hx Reported Past Anesthesia/Blood Transfusion Reactions: No Reported Reaction Past Psychological History: ADD/ADHD, Anxiety, Depression Smoking Status: Former smoker Past Alcohol Use History: None Reported Past Drug Use History: Marijuana General Exam Limitations: no limitations General appearance: alert, in no apparent distress Head exam: Present: atraumatic, normocephalic Eye exam: Present: normal appearance, EOMI ENT exam: Present: mucous membranes moist Neck exam: Present: other (Trachea is in midline) Respiratory exam: Present: normal lung sounds bilaterally. Absent: respiratory distress, wheezes, rales, rhonchi, stridor Cardiovascular Exam: Present: regular rate, normal rhythm, normal heart sounds, other (Normal radial pulses bilaterally) GI/Abdominal exam: Present: soft. Absent: distended, tenderness, guarding Extremities exam: Present: full ROM. Absent: tenderness, pedal edema, calf tenderness Back exam: Present: normal inspection, full ROM. Absent: tenderness, CVA tenderness (R), CVA tenderness (L) Neurological exam: Present: alert, oriented X3, other (No evidence of lower extremity neurological deficit or saddle anesthesia). Absent: motor sensory deficit Psychiatric exam: Present: normal affect, normal mood Skin exam: Present: warm, dry, intact, normal color Course Vital Signs 07/04/21 16:10 Temperature 98.1 F Pulse Rate 75 Respiratory 18 Rate Blood Pressure 118/76 O2 Sat by Pulse 98 Oximetry - Reevaluation(s) Reevaluation #1: 07/04/21 22:39 I was just notified by ED nursing staff that the patient apparently signed out "AGAINST MEDICAL ADVICE". I do not have a chance to speak with the patient prior to her leaving the ED. Medical Decision Making - Medical Decision Making Patient's labs are fairly unremarkable. Patient's UA shows some hematuria, but no definite findings for UTI. Patient eloped from the ED with me having a chance to discuss her test results with her. - Lab Data Result diagrams: 07/04/21 18:34 07/04/21 18:34 Lab Results 07/04/21 07/04/21 07/04/21 Range/Units 18:34 18:34 19:44 WBC 8.7 (3.8-10.6) k/uL RBC 4.65 (3.80-5.40) m/uL Hgb 12.1 (11.4-16.0) gm/dL Hct 38.4 (34.0-46.0) % MCV 82.7 (80.0-100.0) fL MCH 26.0 (25.0-35.0) pg MCHC 31.5 (31.0-37.0) g/dL RDW 15.9 H (11.5-15.5) % Plt Count 324 (150-450) k/uL MPV 7.6 Neutrophils % 58 % Lymphocytes % 31 % Monocytes % 5 % Eosinophils % 2 % Basophils % 0 % Neutrophils # 5.0 (1.3-7.7) k/uL Lymphocytes # 2.7 (1.0-4.8) k/uL Monocytes # 0.4 (0-1.0) k/uL Eosinophils # 0.2 (0-0.7) k/uL Basophils # 0.0 (0-0.2) k/uL Hypochromasia Moderate Sodium 140 (137-145) mmol/L Potassium 4.0 (3.5-5.1) mmol/L Chloride 109 H (98-107) mmol/L Carbon Dioxide 22 (22-30) mmol/L Anion Gap 9 mmol/L BUN 14 (7-17) mg/dL Creatinine 0.81 (0.52-1.04) mg/dL Est GFR (CKD-EPI)AfAm >90 (>60 ml/min/1.73 sqM) Est GFR (CKD-EPI)NonAf >90 (>60 ml/min/1.73 sqM) Glucose 87 (74-99) mg/dL Calcium 8.8 (8.4-10.2) mg/dL Total Bilirubin 0.4 (0.2-1.3) mg/dL AST 18 (14-36) U/L ALT 16 (4-34) U/L Alkaline Phosphatase 86 (38-126) U/L Total Protein 7.4 (6.3-8.2) g/dL Albumin 4.2 (3.5-5.0) g/dL Lipase 79 (23-300) U/L Urine Color Yellow Urine Appearance Cloudy H (Clear) Urine pH 6.0 (5.0-8.0) Ur Specific [place] 1.021 (1.001-1.035) Urine Protein Trace H (Negative) Urine Glucose (UA) Negative (Negative) Urine Ketones Negative (Negative) Urine Blood Small H (Negative) Urine Nitrite Negative (Negative) Urine Bilirubin Negative (Negative) Urine Urobilinogen <2.0 (<2.0) mg/dL Ur Leukocyte Esterase Trace H (Negative) Urine RBC 26 H (0-5) /hpf Urine WBC 5 (0-5) /hpf Ur Squamous Epith Cells 11 H (0-4) /hpf Urine Bacteria Occasional H (None) /hpf Urine Mucus Few H (None) /hpf Urine HCG, Qual (Not Detectd) 07/04/21 Range/Units 19:44 WBC (3.8-10.6) k/uL RBC (3.80-5.40) m/uL Hgb (11.4-16.0) gm/dL Hct (34.0-46.0) % MCV (80.0-100.0) fL MCH (25.0-35.0) pg MCHC (31.0-37.0) g/dL RDW (11.5-15.5) % Plt Count (150-450) k/uL MPV Neutrophils % % Lymphocytes % % Monocytes % % Eosinophils % % Basophils % % Neutrophils # (1.3-7.7) k/uL Lymphocytes # (1.0-4.8) k/uL Monocytes # (0-1.0) k/uL Eosinophils # (0-0.7) k/uL Basophils # (0-0.2) k/uL Hypochromasia Sodium (137-145) mmol/L Potassium (3.5-5.1) mmol/L Chloride (98-107) mmol/L Carbon Dioxide (22-30) mmol/L Anion Gap mmol/L BUN (7-17) mg/dL Creatinine (0.52-1.04) mg/dL Est GFR (CKD-EPI)AfAm (>60 ml/min/1.73 sqM) Est GFR (CKD-EPI)NonAf (>60 ml/min/1.73 sqM) Glucose (74-99) mg/dL Calcium (8.4-10.2) mg/dL Total Bilirubin (0.2-1.3) mg/dL AST (14-36) U/L ALT (4-34) U/L Alkaline Phosphatase (38-126) U/L Total Protein (6.3-8.2) g/dL Albumin (3.5-5.0) g/dL Lipase (23-300) U/L Urine Color Urine Appearance (Clear) Urine pH (5.0-8.0) Ur Specific [place] (1.001-1.035) Urine Protein (Negative) Urine Glucose (UA) (Negative) Urine Ketones (Negative) Urine Blood (Negative) Urine Nitrite (Negative) Urine Bilirubin (Negative) Urine Urobilinogen (<2.0) mg/dL Ur Leukocyte Esterase (Negative) Urine RBC (0-5) /hpf Urine WBC (0-5) /hpf Ur Squamous Epith Cells (0-4) /hpf Urine Bacteria (None) /hpf Urine Mucus (None) /hpf Urine HCG, Qual Not Detected (Not Detectd) Disposition Clinical Impression: Flank pain Disposition: Left Against Medical Advice Condition: Stable Is patient prescribed a controlled substance at d/c from ED?: No Referrals: Anne Dan MD [Primary Care Provider] - 1-2 days
[2021-07-04] MEDS ORDERED: SODIUM CHLORIDE 0.9% 1,000 ML IV ONE (17:57)
[2021-07-04 18:40] LABS: Basophils % (A) 0 %; Eosinophils # (A) 0.2 k/uL (0-0.7); Eosinophils % (A) 2 %; HCT 38.4 % (34.0-46.0); HGB 12.1 gm/dL (11.4-16.0); Hypochromasia Moderate; Lymphocytes # (A) 2.7 k/uL (1.0-4.8); Lymphocytes % (A) 31 %; MCHC 31.5 g/dL (31.0-37.0); MCV 82.7 fL (80.0-100.0); Mean Platelet Volume 7.6; Monocytes # (A) 0.4 k/uL (0-1.0); Monocytes % (A) 5 %; Neutrophils % (A) 58 %; Platelet Count 324 k/uL (150-450); RBC 4.65 m/uL (3.80-5.40); RDW 15.9 % (11.5-15.5); WBC 8.7 k/uL (3.8-10.6)
[2021-07-04 18:52] LABS: ALT 16 U/L (4-34); AST 18 U/L (14-36); African American GFR (CKD) >90 (>60 ml/min/1.73 sqM); Albumin 4.2 g/dL (3.5-5.0); Alkaline Phosphatase 86 U/L (38-126); Anion Gap 9 mmol/L; Blood Urea Nitrogen 14 mg/dL (7-17); Calcium 8.8 mg/dL (8.4-10.2); Carbon Dioxide 22 mmol/L (22-30); Chloride 109 mmol/L (98-107); Glucose 87 mg/dL (74-99); Lipase 79 U/L (23-300); Non-African American GFR(CKD) >90 (>60 ml/min/1.73 sqM); Sodium 140 mmol/L (137-145); Total Bilirubin 0.4 mg/dL (0.2-1.3); Total Protein 7.4 g/dL (6.3-8.2)
[2021-07-04 20:26] LABS: Appearance,Urine Cloudy (Clear); Bacteria,Urine Occasional /hpf; Bilirubin,Urine Negative (Negative); Blood,Urine Small (Negative); Color,Urine Yellow; Glucose,Urine (UA) Negative (Negative); Ketones,Urine Negative (Negative); Leukocyte Esterase,Urine Trace (Negative); Mucus,Urine Few /hpf; Nitrite,Urine Negative (Negative); Protein,Urine Trace (Negative); RBC,Urine 26 /hpf (0-5); Specific Gravity,Urine 1.021 (1.001-1.035); Squamous Epithelial Cell,Urine 11 /hpf (0-4); Urobilinogen,Urine <2.0 mg/dL (<2.0); WBC,Urine 5 /hpf (0-5)
== END 2021-07-04 21:12 | disposition left against medical advice (07) ==
LOC: EC 15:48
DX: R10.9 Unspecified abdominal pain (principal); R31.9 Hematuria, unspecified; F12.90 Cannabis use, unspecified, uncomplicated; Z87.891 Personal history of nicotine dependence
CPT/HCPCS: 36415; 51798; 80053; 81001; 81025; 83690; 85025; 96360; 99284

== ENCOUNTER 2021-09-16 14:21 | Emergency (ER) | payer OTHER ==
[2021-09-16 16:49] VITALS: BP 161/94; PULSE 95; RESP 20; TEMP 99
--- NOTE | 2021-09-16 17:10 | XR ---
EXAMINATION TYPE: XR chest 2V DATE OF EXAM: 09/16/2021 COMPARISON: 07/03/2021 HISTORY: Cough and congestion TECHNIQUE: FINDINGS: Heart is normal. Lungs are clear. Diaphragm is normal. Bony thorax appears normal. IMPRESSION: Multiple chest. No change
[2021-09-16] MEDS ORDERED: IBUPROFEN 800 MG TAB PO STA (18:36)
--- NOTE | 2021-09-16 18:40 | ED ---
General Adult HPI - General Chief complaint: Upper Respiratory Infection Stated complaint: Fever,MICHAEL,pain Time Seen by Provider: 09/16/21 18:20 Source: patient, RN notes reviewed, old records reviewed Mode of arrival: ambulatory Limitations: no limitations - History of Present Illness Initial comments: Patient is a 20-year-old female with no sniffing past medical history presents with Department complaining of generalized body aches, nasal congestion, cough for 1 day. Has a positive sick contact in her boyfriend from last week. Patient's daughter also has a mild fever. Has been taking Tylenol at home for fever. Currently is afebrile. Previously did have Covid. Is concerned she may have it again. No other acute complaints at this time. - Related Data Previous Rx's Medication Instructions Recorded HYDROcodone/APAP 5-325MG [[place] 1 tab PO Q4HR PRN 3 Days #12 tab 07/03/21 5-325] Tamsulosin [Flomax] 0.4 mg PO DAILY #14 cap 07/03/21 Allergies Allergy/AdvReac Type Severity Reaction Status Date / Time bee venom protein (honey bee) Allergy Swelling Verified 09/16/21 16:49 pineapple Allergy Swelling Verified 09/16/21 16:49 methylphenidate AdvReac Rapid Verified 09/16/21 16:49 [From Concerta] Heart Rate Review of Systems ROS Statement: Those systems with pertinent positive or pertinent negative responses have been documented in the HPI. Review of Systems: CONST: Endorses fever EYES: Denies blurry vision ENT: Endorses nasal congestion, endorses cough C/V: Denies Chest pain RESP: Denies shortness of breath GI: Denies abdominal pain : Denies dysuria SKIN: Denies rash. MSK: Endorses generalized body pain NEURO: Denies headache ROS Other: All systems not noted in ROS Statement are negative. Past Medical History Past Medical History: No Reported History History of Any Multi-Drug Resistant Organisms: None Reported Past Surgical History: No Surgical Hx Reported Past Anesthesia/Blood Transfusion Reactions: No Reported Reaction Past Psychological History: ADD/ADHD, Anxiety, Depression Smoking Status: Current every day smoker Past Alcohol Use History: Occasional Past Drug Use History: Marijuana General Exam - General Exam Comments Initial Comments: General: Appears in no acute distress. HEAD: Normal with no signs of head trauma. EYES: PERRLA, EOMI, conjunctiva normal, no discharge. ENT: Hearing grossly intact, normal oropharynx. Bilateral tympanic membranes unremarkable. RESPIRATORY: Clear breath sounds bilaterally. No wheezes, rales, or rhonchi. No hypoxia. No increased work of breathing. C/V: Regular rate and rhythm. S1 and S2 auscultated, no edema, peripheral pulses 2+ and intact throughout ABD: Abd is soft, nontender, nondistended EXT: Normal range of motion, no obvious deformity SKIN: No rashes or lesions observed on exposed skin. NEURO: Alert and oriented 4. Limitations: no limitations Course Vital Signs 09/16/21 16:44 Temperature 99.0 F Pulse Rate 95 Respiratory 20 Rate Blood Pressure 161/94 O2 Sat by Pulse 99 Oximetry Medical Decision Making - Medical Decision Making Based on the patient's presentation and physical exam, I am concerned for COVID- 19 infection. Patient waited an extensive time in triage. Covid test as well as chest x-ray were obtained at this time. Vital signs are within normal limits and stable. Patient is positive for Covid, negative for influenza. Chest x-ray shows no acute cardiopulmonary process. I discussed the findings with the patient. She exposed understanding. I did discuss medical management but is and she did consent to therapy. She'll be discharged following monoclonal antibodies she was in agreement this plan. We discussed obtaining a pulse oximeter to monitor oxygen levels. Discussed quarantining. Recommended staying away from work and others and pelvis today symptom-free. Can use [id number] antipyretics for pain control and fever. She was in agreement with this plan. Patient tolerated therapy well. I instructed the patient to follow up with their PCP in the next 3 days. I explained that the patient should return to the emergency department if they experience any worsening symptoms. Strict return precautions were discussed with the patient. The patient expressed understanding of these instructions. I answered all questions that the patient had. The patient was discharged home in good condition with their prescriptions and follow up information. - Lab Data Lab Results 09/16/21 09/16/21 Range/Units 16:51 16:54 Coronavirus (PCR) Detected A (Not Detectd) Influenza Type A RNA Not Detected (Not Detectd) Influenza Type B (PCR) Not Detected (Not Detectd) Disposition Clinical Impression: COVID-19 virus infection Disposition: HOME SELF-CARE Condition: Good Instructions (If sedation given, give patient instructions): COVID-19 (Coronavirus Disease 2019) (ED) Is patient prescribed a controlled substance at d/c from ED?: No Referrals: Anne Dan MD [Primary Care Provider] - 1-2 days Time of Disposition: 18:40
[2021-09-16] MEDS ORDERED: BEBTELOVIMAB (EUA) 175 MG/2 ML VIAL IV ONE (19:00)
== END 2021-09-16 19:50 | disposition home or self-care (01) ==
LOC: EC 14:21
DX: U07.1 COVID-19 (principal); F17.200 Nicotine dependence, unspecified, uncomplicated; Z91.030 Bee allergy status; Z91.018 Allergy to other foods; Z88.8 Allergy status to other drugs, medicaments and biological substances
CPT/HCPCS: 87502; 87635; 71046; 99283; Q0222

== ENCOUNTER 2021-10-04 12:29 | Emergency (ER) | payer OTHER ==
[2021-10-04 12:44] VITALS: BP 140/82; PULSE 90; RESP 18; TEMP 98.1
[2021-10-04] MEDS ORDERED: ACETAMINOPHEN TAB 500 MG TAB PO STA (12:52)
[2021-10-04] MEDS ORDERED: KETOROLAC 15 MG/ML 1 ML VIAL IM STA (13:19)
[2021-10-04] MEDS ORDERED: HYDROcodone/APAP 5-325MG 1 EACH TAB PO STA (13:19)
--- NOTE | 2021-10-04 14:03 | ED ---
General Adult HPI - General Chief complaint: Extremity Injury, Lower Stated complaint: rt knee injury Time Seen by Provider: 10/04/21 13:00 Source: patient, RN notes reviewed, old records reviewed Mode of arrival: wheelchair Limitations: no limitations - History of Present Illness Initial comments: Patient is a 20-year-old female with past medical history remarkable for chronic knee pain and injury who presents emergency Department complaining of new onset acute on chronic knee pain. States that this morning, her daughter after leash and her leg and her leg gave out and she fell down. Is complaining of excruciating right knee pain. He is unwilling to move her right knee. States is mostly located over the lateral aspect of her right knee. Denies any sensory deficits. States that occasional movement of the right ankle causes the pain as well. Presents for further evaluation at this time. No other injuries. Patient is a chronic history of right knee issues and has been wearing a brace for quite some time, we'll use. - Related Data Previous Rx's Medication Instructions Recorded HYDROcodone/APAP 5-325MG [[place] 1 tab PO Q6HR PRN 3 Days #12 tab 10/04/21 5-325] Allergies Allergy/AdvReac Type Severity Reaction Status Date / Time bee venom protein (honey bee) Allergy Swelling Verified 10/04/21 14:25 pineapple Allergy Swelling Verified 10/04/21 14:25 methylphenidate AdvReac Rapid Verified 10/04/21 14:25 [From Concerta] Heart Rate Review of Systems ROS Statement: Those systems with pertinent positive or pertinent negative responses have been documented in the HPI. Review of Systems: CONST: Denies fever EYES: Denies blurry vision ENT: Denies nasal congestion C/V: Denies Chest pain RESP: Denies shortness of breath GI: Denies abdominal pain : Denies dysuria SKIN: Denies rash. MSK: Endorses right knee pain NEURO: Denies headache ROS Other: All systems not noted in ROS Statement are negative. Past Medical History Past Medical History: No Reported History History of Any Multi-Drug Resistant Organisms: None Reported Past Surgical History: No Surgical Hx Reported Past Anesthesia/Blood Transfusion Reactions: No Reported Reaction Past Psychological History: ADD/ADHD, Anxiety, Depression Smoking Status: Current every day smoker Past Alcohol Use History: Occasional Past Drug Use History: Marijuana General Exam - General Exam Comments Initial Comments: General: Appears in mild distress secondary to right knee pain. HEAD: Normal with no signs of head trauma. EYES: EOMI ENT: Hearing grossly intact RESPIRATORY:. No increased work of breathing C/V: Peripheral pulses 2+ and intact throughout. ABD: Abdomen is nondistended. EXT: Reduced range of motion of the right knee. No obvious deformity. Tenderness to palpation of the right lateral knee. Unwilling to move the right knee. Tenderness to palpation OF the knee only. Can passively move the right ankle, toes. No tenderness palpation of the hip. Pelvis is stable.Patient can hold the knee in full extension. It is painful. SKIN: No rashes or lesions observed on exposed skin. NEURO: Alert and oriented 4. No focal deficits. Limitations: no limitations Course Vital Signs 10/04/21 12:42 Temperature 98.1 F Pulse Rate 90 Respiratory 18 Rate Blood Pressure 140/82 O2 Sat by Pulse 97 Oximetry Medical Decision Making - Medical Decision Making X-ray was obtained despite canceling the order. It showed an inferior patellar osteophyte. Knee CT was obtained and reveals small chip fracture of the patella without significant displacement. I discussed the findings with the patient. I believe it is safe for follow-up with orthopedic surgery. Will be placed in a knee immobilizer. Already has crutches. She was in agreement this plan. Will provide her with a prescription for 3 days Bailey. I will provide the patient with a prescription for Bailey. I instructed the patient to follow up with their PCP in the next 1-3 days. I provided contact information for follow up with orthopedic Surgery. I explained that the patient should return to the emergency department if they experience any worsening symptoms. Strict return precautions were discussed with the patient. The patient expressed understanding of these instructions. I answered all questions that the patient had. The patient was discharged home in fair condition with their prescriptions and follow up information. Disposition Clinical Impression: Patella fracture, Fall Disposition: HOME SELF-CARE Condition: Fair Instructions (If sedation given, give patient instructions): Patellar Fracture (ED) Prescriptions: HYDROcodone/APAP 5-325MG [[place] 5-325] 1 tab PO Q6HR PRN 3 Days #12 tab PRN Reason: Pain Is patient prescribed a controlled substance at d/c from ED?: Yes When asked, does pt state using other controlled substances?: Yes If prescribed controlled substance>3 days was MAPS reviewed?: Prescribed <3 Days If opioid is for acute pain is fill amount 7 days or less?: Yes If Rx opioid, was Start Talking consent form obtained?: No Referrals: Anne Dan MD [Primary Care Provider] - 1-2 days Jerel Pennington MD [STAFF PHYSICIAN] - 1-2 days Time of Disposition: 14:35
--- NOTE | 2021-10-04 14:35 | XR ---
EXAMINATION TYPE: XR knee complete RT DATE OF EXAM: 10/04/2021 1:49 PM INDICATION: Patient age:Female; 20 years old; Reason for study: Injury COMPARISON: None. TECHNIQUE: The Right knee(s) was examined in 3 projections. Frontal, lateral and oblique. FINDINGS: Irregular morphology to the inferior aspect of the patella. Small joint effusion is present . No evidence of displaced fracture. IMPRESSION: 1. No acute osseous pathology. 2. Inferior patellar osteophyte suggested which is abnormal for patient of this age. Consider further evaluation of the right knee with outpatient MRI.
--- NOTE | 2021-10-04 14:38 | CT ---
EXAMINATION TYPE: CT knee RT wo con DATE OF EXAM: 10/04/2021 COMPARISON: None HISTORY: Twisted Rt knee CT DLP: 229.5 mGycm Automated exposure control for dose reduction was used. Images obtained from the mid femur to the mid tibia with no contrast. Distal femur is intact. Proximal tibia and fibula appear intact. No evidence of any significant join t effusion. There is a small chip fracture of the posterior patella on the medial aspect that measures 9 mm. No s ignificant displacement. Knee joint spaces are fairly normal. No evidence of a soft tissue mass. No f ocal bone destruction. IMPRESSION: Small chip fracture of the patella without significant displacement.
== END 2021-10-04 15:43 | disposition home or self-care (01) ==
LOC: EC 12:29
DX: S82.001A Unspecified fracture of right patella, initial encounter for closed fracture (principal); F17.200 Nicotine dependence, unspecified, uncomplicated; Z88.9 Allergy status to unspecified drugs, medicaments and biological substances; Z91.030 Bee allergy status; Z91.018 Allergy to other foods; W19.XXXA Unspecified fall, initial encounter
CPT/HCPCS: 73562; 73700; 99284; 96372; L1830; J1885

== ENCOUNTER 2021-11-28 09:53 | Emergency (ER) | payer OTHER ==
[2021-11-28 10:20] VITALS: BP 103/69; PULSE 59; RESP 16; TEMP 98.1
--- NOTE | 2021-11-28 10:38 | ED ---
General Adult HPI - General Chief complaint: Extremity Injury, Upper Stated complaint: Knee pain, Throat pain Time Seen by Provider: 11/28/21 10:37 Source: patient Mode of arrival: ambulatory Limitations: no limitations - History of Present Illness Initial comments: Patient is a 21-year-old female presenting to the emergency room with complaints of sore throat and fevers ongoing for the last 24 hours. She reports that she is unsure how high her temperature has been. She is not taken any [id number] medications to help with her symptoms. She denies any known exposure to COVID or influenza. She denies any other associated symptoms with her sore throat and fevers including any cough, headache, chest pain, shortness of breath, abdominal pain causing, nausea, vomiting, or chills. She is also complaining of pain right knee which has been ongoing. She was previously evaluated regarding this pain and swelling with a computed tomography scan and x-ray on October 04 at which time she was identified with a chip fracture of the patella and was placed in an immobilizer unfortunately due to her insurance she has not been able to follow-up with an orthopedist. She is not taking any pain medication for her knee as she reports that she is unable to tolerate pills that she is given in the past for pain. She denies any significant past medical history but does have a past mental health history for ADHD, anxiety and depression. - Related Data Previous Rx's Medication Instructions Recorded HYDROcodone/APAP 5-325MG [[place] 1 tab PO Q6HR PRN 3 Days #12 tab 10/04/21 5-325] Ibuprofen Oral Susp [Motrin Oral 600 mg PO Q8HR PRN 3 Days #270 ml 11/28/21 Susp] Loratadine Oral Soln [Claritin 10 mg PO DAILY 7 Days #70 ml 11/28/21 Oral Soln] Allergies Allergy/AdvReac Type Severity Reaction Status Date / Time bee venom protein (honey bee) Allergy Swelling Verified 11/28/21 10:20 pineapple Allergy Swelling Verified 11/28/21 10:20 methylphenidate AdvReac Rapid Verified 11/28/21 10:20 [From Concerta] Heart Rate Review of Systems ROS Statement: Those systems with pertinent positive or pertinent negative responses have been documented in the HPI. ROS Other: All systems not noted in ROS Statement are negative. Past Medical History Past Medical History: No Reported History History of Any Multi-Drug Resistant Organisms: None Reported Past Surgical History: No Surgical Hx Reported Past Anesthesia/Blood Transfusion Reactions: No Reported Reaction Past Psychological History: ADD/ADHD, Anxiety, Depression Smoking Status: Current every day smoker Past Alcohol Use History: Occasional Past Drug Use History: Marijuana General Exam Limitations: no limitations General appearance: alert, in no apparent distress Head exam: Present: atraumatic, normocephalic, normal inspection Eye exam: Present: normal appearance, PERRL, EOMI. Absent: scleral icterus, conjunctival injection, periorbital swelling ENT exam: Present: normal exam, mucous membranes moist Expanded Throat exam: other (Mild pharyngeal injection without edema). negative: tonsillomegaly, tonsillar exudate Neck exam: Present: lymphadenopathy. Absent: tenderness, thyromegaly Respiratory exam: Present: normal lung sounds bilaterally. Absent: respiratory distress, wheezes, rales, rhonchi, stridor Cardiovascular Exam: Present: regular rate, normal rhythm, normal heart sounds. Absent: systolic murmur, diastolic murmur, rubs, gallop, clicks GI/Abdominal exam: Present: soft, normal bowel sounds. Absent: distended, tende rness, guarding, rebound, rigid Right Knee exam: Present: full ROM, tenderness, effusion (Mild). Absent: laceration, erythema Neurovascular tendon exam: Present: no vascular compromise Gait: observed and limited by pain Back exam: Present: normal inspection Neurological exam: Present: alert, oriented X3, CN II-XII intact Psychiatric exam: Present: normal affect, normal mood Skin exam: Present: warm, dry, intact, normal color. Absent: rash Course Vital Signs 11/28/21 10:16 Temperature 98.1 F Pulse Rate 59 L Respiratory 16 Rate Blood Pressure 103/69 O2 Sat by Pulse 100 Oximetry Medical Decision Making - Medical Decision Making 21-year-old female complaining of sore throat and fever with acute onset less than 24 hours. Will check for Covid and strep. No indication for other laboratory studies. Will repeat x-ray of the right knee given persistent pain. Denies any analgesic need at this time. Covid negative, strep negative. X-ray of the right knee shows interval and healing of patellar fracture. No indication for further intervention regarding knee. Advised to utilize ibuprofen as needed for pain unable to swallow tablets we'll send and lip vertically prescription. Advised Claritin for allergy symptoms of sore throat will send and liquid as well. Will discharge patient daniel e. Patient agreeable with plan. Case discussed with Dr. Stewart. - Lab Data Lab Results 11/28/21 11/28/21 Range/Units 11:00 11:00 Coronavirus (PCR) Not Detected (Not Detectd) Group A Strep Rapid Negative (Negative) - Radiology Data Radiology results: report reviewed, image reviewed X-ray right knee complete no acute osseous pathology. Interval healing chip fracture of the patella. Disposition Clinical Impression: Fracture of right patella with routine healing, Allergic pharyngitis Disposition: HOME SELF-CARE Condition: Good Instructions (If sedation given, give patient instructions): Patellar Fracture (ED), Allergies (ED) Additional Instructions: Please utilize ibuprofen as needed for pain and knee swelling. Please take antihistamine daily to help with sore throat symptoms. Please follow-up with your primary care provider. Please return to the Emergency Department if symptoms worsen or any other concerns. Prescriptions: Loratadine Oral Soln [Claritin Oral Soln] 10 mg PO DAILY 7 Days #70 ml Ibuprofen Oral Susp [Motrin Oral Susp] 600 mg PO Q8HR PRN 3 Days #270 ml PRN Reason: Pain Is patient prescribed a controlled substance at d/c from ED?: No Referrals: Anne Dna MD [Primary Care Provider] - 1-2 days Time of Disposition: 12:30
--- NOTE | 2021-11-28 11:57 | XR ---
EXAMINATION TYPE: XR knee complete RT DATE OF EXAM: 11/28/2021 11:17 AM INDICATION: Patient age:Female; 21 years old; Reason for study: Pain swelling; PHH. COMPARISON: CT right knee 10/04/2021, right knee radiograph 10/04/2021. TECHNIQUE: The Right knee(s) was examined in 3 projections. Frontal, lateral and oblique. FINDINGS: No evidence of any acute osseous pathology, joint space narrowing, soft tissue swelling, or joint effusion is noted. Interval healing of chip fracture of the patella. IMPRESSION: 1. No acute osseous pathology. 2. Interval healing chip fracture of the patella.
== END 2021-11-28 12:46 | disposition home or self-care (01) ==
LOC: EC 09:53
DX: S82.044A Nondisplaced comminuted fracture of right patella, initial encounter for closed fracture (principal); J02.9 Acute pharyngitis, unspecified; F17.200 Nicotine dependence, unspecified, uncomplicated; Z91.030 Bee allergy status; Z91.09 Other allergy status, other than to drugs and biological substances; Z88.9 Allergy status to unspecified drugs, medicaments and biological substances; X58.XXXA Exposure to other specified factors, initial encounter; Z20.822 Contact with and (suspected) exposure to COVID-19
CPT/HCPCS: 87081; 87430; 87635; 99283

== ENCOUNTER 2022-02-20 15:08 | Emergency (ER) | payer OTHER ==
[2022-02-20 17:47] LABS: Appearance,Urine Clear (Clear); Bacteria,Urine Occasional /hpf; Bilirubin,Urine Negative (Negative); Blood,Urine Small (Negative); Color,Urine Light Yellow; Glucose,Urine (UA) Negative (Negative); Ketones,Urine Negative (Negative); Leukocyte Esterase,Urine Negative (Negative); Mucus,Urine Rare /hpf; Nitrite,Urine Negative (Negative); PH, Urine 7.5 (5.0-8.0); Protein,Urine Negative (Negative); RBC,Urine 3 /hpf (0-5); Specific Gravity,Urine 1.015 (1.001-1.035); Squamous Epithelial Cell,Urine 3 /hpf (0-4); Urobilinogen,Urine <2.0 mg/dL (<2.0); WBC,Urine 1 /hpf (0-5)
[2022-02-20] MEDS ORDERED: SODIUM CHLORIDE 0.9% 1,000 ML IV STA (18:11)
[2022-02-20] MEDS ORDERED: KETOROLAC 15 MG/ML 1 ML VIAL IVP STA (18:11)
[2022-02-20] MEDS ORDERED: ONDANSETRON 4 MG/2 ML VIAL IVP STA (18:11)
--- NOTE | 2022-02-20 18:15 | ED ---
General Adult HPI - General Chief complaint: Abdominal Pain Stated complaint: Lower back/abd pain Time Seen by Provider: 02/20/22 18:05 Source: patient, RN notes reviewed Mode of arrival: ambulatory Limitations: no limitations - History of Present Illness Initial comments: 21-year-old female presents to the emergency Department with complaints of right flank pain that radiates to the low back and groin. States this feels similar to when she has had kidney stones in the past. Did not take anything to treat her symptoms prior to arrival. Reports loss of appetite, nausea, and chills as well. Did not check temperature. Is currently on her period. Denies headache, dizziness, chest pain, shortness of breath, abdominal pain, diarrhea, or dysuria. - Related Data Previous Rx's Medication Instructions Recorded Ondansetron Odt [Zofran Odt] 4 mg PO Q8HR PRN #10 tab 02/20/22 Allergies Allergy/AdvReac Type Severity Reaction Status Date / Time bee venom protein (honey bee) Allergy Swelling Verified 02/20/22 20:20 pineapple Allergy Swelling Verified 02/20/22 20:20 methylphenidate AdvReac Rapid Verified 02/20/22 20:20 [From Concerta] Heart Rate Review of Systems ROS Statement: Those systems with pertinent positive or pertinent negative responses have been documented in the HPI. ROS Other: All systems not noted in ROS Statement are negative. Past Medical History Past Medical History: No Reported History History of Any Multi-Drug Resistant Organisms: None Reported Past Surgical History: No Surgical Hx Reported Past Anesthesia/Blood Transfusion Reactions: No Reported Reaction Past Psychological History: ADD/ADHD, Anxiety, Depression Smoking Status: Current every day smoker Past Alcohol Use History: Occasional Past Drug Use History: Marijuana General Exam Limitations: no limitations General appearance: alert, in no apparent distress ENT exam: Present: normal oropharynx, mucous membranes moist Respiratory exam: Present: normal lung sounds bilaterally. Absent: respiratory distress, wheezes, rales, rhonchi, stridor Cardiovascular Exam: Present: regular rate, normal rhythm, normal heart sounds. Absent: systolic murmur, diastolic murmur, rubs, gallop, clicks GI/Abdominal exam: Present: soft, normal bowel sounds. Absent: distended, tenderness, guarding, rebound, rigid Back exam: Present: CVA tenderness (R) Neurological exam: Present: alert, oriented X3, CN II-XII intact Psychiatric exam: Present: flat affect Skin exam: Present: warm, dry, intact, normal color. Absent: rash Course Vital Signs 02/20/22 02/20/22 02/20/22 17:13 19:55 20:33 Temperature 98.9 F 98.8 F Pulse Rate 113 H 110 H 93 Respiratory 18 16 18 Rate Blood Pressure 106/62 114/71 100/69 O2 Sat by Pulse 99 99 97 Oximetry - Reevaluation(s) Reevaluation #1: 02/20/22 20:26 Patient updated on results. She is tolerating some oral intake at this time. Pain persists but is improved. She will receive a dose of morphine prior to departure. Instructed to follow up with her PCP for ongoing care. Medical Decision Making - Medical Decision Making This is a 21-year-old female with a past medical history of kidney stones who presents to the emergency Department with complaints of right flank pain. Upon exam, patient is well-appearing and in no acute distress. She is not restless, diaphoretic, or vomiting. Though I have a low degree of suspicion for renal calculi, patient does have a small amount of blood in her urine, which could be due to menstruation, however given the location of her pain CT of the abdomen and pelvis was obtained and was negative. Laboratory studies were overall unremarkable. Initial heart rate was elevated but did improve with IV fluids, pain medicine, antinausea medicine. Patient does have food at the bedside which she has been able to tolerate small amounts of. My suspicion is that given her chills, body aches, and loss of appetite this is likely viral in etiology. She will be discharged home with instructions on symptomatic management and encouraged to follow up with her PCP for recheck if not improving in 72 hours. Return parameters were discussed in detail. Patient verbalizes understanding and agrees with this plan. Attending: Maria Ines. - Lab Data Result diagrams: 02/20/22 18:31 02/20/22 18:31 Lab Results 02/20/22 02/20/22 02/20/22 Range/Units 17:19 17:19 18:31 WBC 10.0 (3.8-10.6) k/uL RBC 5.32 (3.80-5.40) m/uL Hgb 14.3 (11.4-16.0) gm/dL Hct 44.4 (34.0-46.0) % MCV 83.4 (80.0-100.0) fL MCH 26.8 (25.0-35.0) pg MCHC 32.2 (31.0-37.0) g/dL RDW 14.8 (11.5-15.5) % Plt Count 238 (150-450) k/uL MPV 8.1 Neutrophils % 89 % Lymphocytes % 6 % Monocytes % 3 % Eosinophils % 1 % Basophils % 0 % Neutrophils # 8.9 H (1.3-7.7) k/uL Lymphocytes # 0.6 L (1.0-4.8) k/uL Monocytes # 0.3 (0-1.0) k/uL Eosinophils # 0.1 (0-0.7) k/uL Basophils # 0.0 (0-0.2) k/uL Hypochromasia Slight Sodium (137-145) mmol/L Potassium (3.5-5.1) mmol/L Chloride (98-107) mmol/L Carbon Dioxide (22-30) mmol/L Anion Gap mmol/L BUN (7-17) mg/dL Creatinine (0.52-1.04) mg/dL Est GFR (CKD-EPI)AfAm (>60 ml/min/1.73 sqM) Est GFR (CKD-EPI)NonAf (>60 ml/min/1.73 sqM) Glucose (74-99) mg/dL Calcium (8.4-10.2) mg/dL Total Bilirubin (0.2-1.3) mg/dL AST (14-36) U/L ALT (4-34) U/L Alkaline Phosphatase (38-126) U/L Total Protein (6.3-8.2) g/dL Albumin (3.5-5.0) g/dL Urine Color Light Yellow Urine Appearance Clear (Clear) Urine pH 7.5 (5.0-8.0) Ur Specific [place] 1.015 (1.001-1.035) Urine Protein Negative (Negative) Urine Glucose (UA) Negative (Negative) Urine Ketones Negative (Negative) Urine Blood Small H (Negative) Urine Nitrite Negative (Negative) Urine Bilirubin Negative (Negative) Urine Urobilinogen <2.0 (<2.0) mg/dL Ur Leukocyte Esterase Negative (Negative) Urine RBC 3 (0-5) /hpf Urine WBC 1 (0-5) /hpf Ur Squamous Epith Cells 3 (0-4) /hpf Urine Bacteria Occasional H (None) /hpf Urine Mucus Rare H (None) /hpf Urine HCG, Qual Not Detected (Not Detectd) Coronavirus (PCR) (Not Detectd) Influenza Type A RNA (Not Detectd) Influenza Type B (PCR) (Not Detectd) 02/20/22 02/20/22 02/20/22 Range/Units 18:31 18:31 18:31 WBC (3.8-10.6) k/uL RBC (3.80-5.40) m/uL Hgb (11.4-16.0) gm/dL Hct (34.0-46.0) % MCV (80.0-100.0) fL MCH (25.0-35.0) pg MCHC (31.0-37.0) g/dL RDW (11.5-15.5) % Plt Count (150-450) k/uL MPV Neutrophils % % Lymphocytes % % Monocytes % % Eosinophils % % Basophils % % Neutrophils # (1.3-7.7) k/uL Lymphocytes # (1.0-4.8) k/uL Monocytes # (0-1.0) k/uL Eosinophils # (0-0.7) k/uL Basophils # (0-0.2) k/uL Hypochromasia Sodium 136 L (137-145) mmol/L Potassium 3.9 (3.5-5.1) mmol/L Chloride 106 (98-107) mmol/L Carbon Dioxide 21 L (22-30) mmol/L Anion Gap 9 mmol/L BUN 7 (7-17) mg/dL Creatinine 0.66 (0.52-1.04) mg/dL Est GFR (CKD-EPI)AfAm >90 (>60 ml/min/1.73 sqM) Est GFR (CKD-EPI)NonAf >90 (>60 ml/min/1.73 sqM) Glucose 89 (74-99) mg/dL Calcium 8.8 (8.4-10.2) mg/dL Total Bilirubin 0.7 (0.2-1.3) mg/dL AST 18 (14-36) U/L ALT 16 (4-34) U/L Alkaline Phosphatase 76 (38-126) U/L Total Protein 6.6 (6.3-8.2) g/dL Albumin 4.1 (3.5-5.0) g/dL Urine Color Urine Appearance (Clear) Urine pH (5.0-8.0) Ur Specific [place] (1.001-1.035) Urine Protein (Negative) Urine Glucose (UA) (Negative) Urine Ketones (Negative) Urine Blood (Negative) Urine Nitrite (Negative) Urine Bilirubin (Negative) Urine Urobilinogen (<2.0) mg/dL Ur Leukocyte Esterase (Negative) Urine RBC (0-5) /hpf Urine WBC (0-5) /hpf Ur Squamous Epith Cells (0-4) /hpf Urine Bacteria (None) /hpf Urine Mucus (None) /hpf Urine HCG, Qual (Not Detectd) Coronavirus (PCR) Not Detected (Not Detectd) Influenza Type A RNA Not Detected (Not Detectd) Influenza Type B (PCR) Not Detected (Not Detectd) - Radiology Data Radiology results: report reviewed, image reviewed CT of the abdomen and pelvis without contrast was obtained. Report was reviewed in its entirety. Impression per Dr. Nascimento his negative computed tomography scan of the abdomen and pelvis. There is clearing of the minimal fluid in the pelvis compared to old exam. Disposition Clinical Impression: Abdominal pain Disposition: HOME SELF-CARE Condition: Stable Instructions (If sedation given, give patient instructions): Abdominal Pain (ED) Additional Instructions: Increase intake of fluids. Take Zofran if needed for nausea. Follow-up with your PCP for a recheck on Tuesday. Return to the emergency department with any new, worsening, or concerning symptoms. Prescriptions: Ondansetron Odt [Zofran Odt] 4 mg PO Q8HR PRN #10 tab PRN Reason: Nausea Is patient prescribed a controlled substance at d/c from ED?: No Referrals: Anne Dan MD [Primary Care Provider] - 1-2 days
[2022-02-20 18:56] LABS: Basophils % (A) 0 %; Eosinophils # (A) 0.1 k/uL (0-0.7); Eosinophils % (A) 1 %; HCT 44.4 % (34.0-46.0); HGB 14.3 gm/dL (11.4-16.0); Hypochromasia Slight; Lymphocytes # (A) 0.6 k/uL (1.0-4.8); Lymphocytes % (A) 6 %; MCH 26.8 pg (25.0-35.0); MCHC 32.2 g/dL (31.0-37.0); MCV 83.4 fL (80.0-100.0); Mean Platelet Volume 8.1; Monocytes # (A) 0.3 k/uL (0-1.0); Monocytes % (A) 3 %; Neutrophils # (A) 8.9 k/uL (1.3-7.7); Neutrophils % (A) 89 %; Platelet Count 238 k/uL (150-450); RBC 5.32 m/uL (3.80-5.40); RDW 14.8 % (11.5-15.5)
[2022-02-20 19:12] LABS: ALT 16 U/L (4-34); AST 18 U/L (14-36); African American GFR (CKD) >90 (>60 ml/min/1.73 sqM); Albumin 4.1 g/dL (3.5-5.0); Alkaline Phosphatase 76 U/L (38-126); Blood Urea Nitrogen 7 mg/dL (7-17); Calcium 8.8 mg/dL (8.4-10.2); Carbon Dioxide 21 mmol/L (22-30); Glucose 89 mg/dL (74-99); Non-African American GFR(CKD) >90 (>60 ml/min/1.73 sqM); Total Bilirubin 0.7 mg/dL (0.2-1.3); Total Protein 6.6 g/dL (6.3-8.2)
[2022-02-20 19:31] LABS: Anion Gap 9 mmol/L; Chloride 106 mmol/L (98-107); Potassium 3.9 mmol/L (3.5-5.1); Sodium 136 mmol/L (137-145)
--- NOTE | 2022-02-20 20:15 | CT ---
EXAMINATION TYPE: CT abdomen pelvis wo con DATE OF EXAM: 02/20/2022 COMPARISON: 07/03/2021 HISTORY: Flank pain CT DLP: 954.3 mGycm Automated exposure control for dose reduction was used. Images obtained from the diaphragm to the floor the pelvis with no contrast. The lung bases are clear. No pleural effusion. Heart size is normal. No pericardial effusion. Liver spleen and stomach pancreas gallbladder appear normal. The bile ducts are not dilated. There is no adrenal mass. Kidneys show normal size and contour. No hydronephrosis. Ureters are not dilated. There is no retroperitoneal adenopathy. The bladder distends smoothly. Uterus is anteverted. No ingui nal hernia. No free fluid in the pelvis. No pelvic mass. There is no mesenteric edema. No ascites or free air. No sign of a bowel obstruction. Appendix is pos terior and appears normal. The lumbar vertebrae have normal alignment. No compression fracture. Bony pelvis is intact. IMPRESSION: Negative CT scan of the abdomen pelvis. There is clearing of the minimal fluid in the pelvis compared to old exam.
[2022-02-20] MEDS ORDERED: MORPHINE SULFATE 2 MG/ML SYRINGE IVP STA (20:17)
[2022-02-20 20:34] VITALS: BP 100/69; PULSE 93; RESP 18; TEMP 98.8
== END 2022-02-20 20:38 | disposition home or self-care (01) ==
LOC: EC 15:08
DX: R10.31 Right lower quadrant pain (principal); F17.200 Nicotine dependence, unspecified, uncomplicated; F12.90 Cannabis use, unspecified, uncomplicated; F41.9 Anxiety disorder, unspecified; F32.A Depression, unspecified; F90.9 Attention-deficit hyperactivity disorder, unspecified type; Z91.030 Bee allergy status; Z91.018 Allergy to other foods; Z88.9 Allergy status to unspecified drugs, medicaments and biological substances; Z20.822 Contact with and (suspected) exposure to COVID-19
CPT/HCPCS: 99284; 96375 ×2; 96361; 96374; 36415; 80053; 85025; 81001; 81025; 87502; 87635; 74176; J2405; J2270; J1885

== ENCOUNTER 2022-04-17 11:34 | Emergency (ER) | payer OTHER ==
[2022-04-17 11:57] VITALS: TEMP 98.5
[2022-04-17] MEDS ORDERED: ONDANSETRON 4 MG/2 ML VIAL IVP STA (12:01)
[2022-04-17] MEDS ORDERED: SODIUM CHLORIDE 0.9% 1,000 ML IV STA (12:01)
[2022-04-17] MEDS ORDERED: KETOROLAC 15 MG/ML 1 ML VIAL IVP STA (12:21)
[2022-04-17 12:31] LABS: Basophils % (A) 0 %; Eosinophils # (A) 0.1 k/uL (0-0.7); Eosinophils % (A) 0 %; HCT 40.3 % (34.0-46.0); HGB 13.2 gm/dL (11.4-16.0); Lymphocytes # (A) 0.7 k/uL (1.0-4.8); Lymphocytes % (A) 7 %; MCH 26.5 pg (25.0-35.0); MCHC 32.7 g/dL (31.0-37.0); Mean Platelet Volume 7.2; Monocytes # (A) 0.5 k/uL (0-1.0); Monocytes % (A) 4 %; Neutrophils # (A) 9.3 k/uL (1.3-7.7); Neutrophils % (A) 87 %; Platelet Count 222 k/uL (150-450); RBC 4.97 m/uL (3.80-5.40); RDW 15.7 % (11.5-15.5); WBC 10.7 k/uL (3.8-10.6)
[2022-04-17 12:39] LABS: ALT 16 U/L (4-34); AST 16 U/L (14-36); African American GFR (CKD) >90 (>60 ml/min/1.73 sqM); Albumin 4.2 g/dL (3.5-5.0); Alkaline Phosphatase 68 U/L (38-126); Anion Gap 9 mmol/L; Blood Urea Nitrogen 15 mg/dL (7-17); Calcium 8.3 mg/dL (8.4-10.2); Carbon Dioxide 23 mmol/L (22-30); Chloride 105 mmol/L (98-107); Glucose 93 mg/dL (74-99); Lipase 24 U/L (23-300); Magnesium 1.7 mg/dL (1.6-2.3); Non-African American GFR(CKD) >90 (>60 ml/min/1.73 sqM); Potassium 3.7 mmol/L (3.5-5.1); Sodium 137 mmol/L (137-145); Total Bilirubin 1.1 mg/dL (0.2-1.3); Total Protein 6.8 g/dL (6.3-8.2)
--- NOTE | 2022-04-17 15:53 | CT ---
EXAMINATION TYPE: CT abdomen pelvis w con DATE OF EXAM: 04/17/2022 COMPARISON: 02/20/2022 HISTORY: Right sided abdominal/flank pain. CT DLP: 1528.9 mGycm Automated exposure control for dose reduction was used. CONTRAST: Performed with IV Contrast, patient injected with 100ml mL of Isovue 300. Images obtained from the diaphragm to the floor of the pelvis with IV contrast. Lung bases are clear. No pleural effusion. Heart size is normal. No pericardial effusion. Liver splee n stomach pancreas gallbladder appear normal. The bile ducts are not dilated. There is no adrenal mas s. Kidneys show satisfactory contrast opacification. No hydronephrosis. Delayed images show normal re nal excretion. Ureters are not dilated. Appendix is posterior and appears normal. Bladder distends sm oothly. No inguinal hernia. No free fluid in the pelvis. No pelvic mass. Uterus is anteverted. Lumbar vertebra have normal alignment. Posterior elements are intact. No compression fracture. Bony pelvis is intact. The hip joints appear normal. There is no mesenteric edema. No ascites or free air. No sign of a bowel obstruction. IMPRESSION: Negative CT scan abdomen and pelvis. No adverse change compared to old exam.
--- NOTE | 2022-04-17 15:56 | ED ---
Abdominal Pain HPI - General Chief Complaint: Abdominal Pain Stated Complaint: abd/back pain Time Seen by Provider: 04/17/22 11:59 Source: patient Mode of arrival: ambulatory - History of Present Illness Initial Comments: Patient is a 21-year-old female who presents to the emergency department with a chief complaint of back pain. Patient states pain started yesterday in her rig ht back with radiation towards the right side and across her entire abdomen. No injury. No saddle anesthesia. No loss of bowel or bladder function. Reports nausea with 2 episodes of vomiting last night, nonbloody. Patient also had 4 episodes of diarrhea last night, nonbloody. No vomiting or diarrhea today. Patient currently feels nauseous. Denies fever, chills, burning with urination, increased urinary frequency, increased urinary urgency. Patient expresses concern that she has been evaluated in the emergency department for this pain before. She has not followed up with a primary care provider because she "does not like them." - Related Data Previous Rx's Medication Instructions Recorded Ondansetron Odt [Zofran Odt] 4 mg PO Q8HR PRN #10 tab 02/20/22 Cyclobenzaprine [Flexeril] 5 mg PO HS PRN #5 tablet 04/17/22 Ibuprofen [Motrin] 800 mg PO Q8HR PRN #30 tab 04/17/22 Ondansetron Odt [Zofran Odt] 4 mg PO Q8HR PRN #10 tab 04/17/22 Allergies Allergy/AdvReac Type Severity Reaction Status Date / Time bee venom protein (honey bee) Allergy Swelling Verified 04/17/22 11:57 pineapple Allergy Swelling Verified 04/17/22 11:57 methylphenidate AdvReac Rapid Verified 04/17/22 11:57 [From Concerta] Heart Rate Review of Systems ROS Statement: Those systems with pertinent positive or pertinent negative responses have been documented in the HPI. ROS Other: All systems not noted in ROS Statement are negative. Past Medical History Past Medical History: No Reported History History of Any Multi-Drug Resistant Organisms: None Reported Past Surgical History: No Surgical Hx Reported Past Anesthesia/Blood Transfusion Reactions: No Reported Reaction Past Psychological History: ADD/ADHD, Anxiety, Depression Smoking Status: Current every day smoker Past Alcohol Use History: Occasional Past Drug Use History: Marijuana General Exam General appearance: alert, in no apparent distress Head exam: Present: atraumatic, normocephalic, normal inspection Respiratory exam: Present: normal lung sounds bilaterally. Absent: respiratory distress, wheezes, rales, rhonchi, stridor Cardiovascular Exam: Present: regular rate, normal rhythm, normal heart sounds. Absent: systolic murmur, diastolic murmur, rubs, gallop, clicks GI/Abdominal exam: Present: soft, normal bowel sounds. Absent: distended, tenderness, guarding, rebound, rigid Back exam: Present: normal inspection, full ROM, CVA tenderness (R), paraspinal tenderness (right lumbar). Absent: vertebral tenderness Neurological exam: Present: alert, oriented X3, CN II-XII intact Psychiatric exam: Present: normal affect, normal mood Skin exam: Present: warm, dry, intact, normal color. Absent: rash Course Vital Signs 04/17/22 04/17/22 04/17/22 11:55 14:20 15:57 Temperature 98.5 F Pulse Rate 113 H 101 H 100 Respiratory 16 18 18 Rate Blood Pressure 100/69 110/74 110/70 O2 Sat by Pulse 96 99 97 Oximetry Medical Decision Making - Medical Decision Making Was pt. sent in by a medical professional or institution (, PA, SUPERVISOR FINISHING, urgent care, hospital, or [facility]...) When possible be specific @ -[No] Did you speak to anyone other than the patient for history (EMS, parent, family, police, friend...)? What history was obtained from this source @ -[No] Did you review nursing and triage notes (agree or disagree)? Why? @ -[I reviewed and agree with nursing and triage notes] Were old charts reviewed (outside hosp., previous admission, EMS record, old EKG, old radiological studies, urgent care reports/EKG's, [facility] records)? Report findings @ -Yes, patient had abdominal CT in January for similar pain which is negative for acute process Differential Diagnosis (chest pain, altered mental status, abdominal pain women, abdominal pain men, vaginal bleeding, weakness, fever, dyspnea, syncope, headache, dizziness, GI bleed, back pain, seizure, CVA, palpatations, mental health)? @ -Differential Abdominal Pain Women: Appendicitis, Cholecystitis, diverticulosis, ischemic bowel, pancreatitis, hepatitis, UTI, gastroenteritis, AAA, incarcerated hernia, bowel obstruction, constipation, inflammatory bowel, hepatitis, peptic ulcer disease, splenic infarction, perforated viscus, vulvitis, ovarian torsion, PID, kidney stone, placenta abruption, this is not meant to be an all-inclusive list EKG interpreted by me (3pts min.). @ -[As above] X-rays interpreted by me (1pt min.). @ -[None done] CT interpreted by me (1pt min.). @ -[None done] U/S interpreted by me (1pt. min.). @ -[None done] What testing was considered but not performed or refused? (CT, X-rays, U/S, labs)? Why? @ -[None] What meds were considered but not given or refused? Why? @ -[None] Did you discuss the management of the patient with other professionals (professionals i.e. , PA, SUPERVISOR FINISHING, lab, RT, psych nurse, social service worker, bucket chucker, teacher, security control room officer, embedded case manager)? Give summary @ -[No] Was smoking cessation discussed for >3mins.? @ -[No] Was critical care preformed (if so, how long)? @ -[No] Were there social determinants of health that impacted care today? How? (Homelessness, low income, unemployed, alcoholism, drug addiction, transportation, low edu. Level, literacy, decrease access to med. care, long-term, rehab)? @ -[No] Was there de-escalation of care discussed even if they declined (Discuss DNR or withdrawal of care, Hospice)? DNR status @ -[No] What co-morbidities impacted this encounter? (DM, HTN, Smoking, COPD, CAD, Cancer, CVA, ARF, Chemo, Hep., AIDS, mental health diagnosis, sleep apnea, morbid obesity)? @ -[None] Was patient admitted / discharged? Hospital course, mention meds given and route, prescriptions, significant lab abnormalities, going to OR and other pertinent info. @ -Discharged. No obvious cause for patient's symptoms. Patient's slept during most of her emergency stay. Labs unremarkable. CT of the abdomen and pelvis without contrast negative for acute process. Patient has right lumbar paravertebral tenderness. Will try short course of muscle relaxers. Urged patient to establish new primary care provider for follow-up. Undiagnosed new problem with uncertain prognosis? @ -[No] Drug Therapy requiring intensive monitoring for toxicity (Heparin, Nitro, Insulin, Cardizem)? @ -[No] Were any procedures done? @ -[No] Diagnosis/symptom? @ -Back pain Acute, or Chronic, or Acute on Chronic? @ -Acute Uncomplicated (without systemic symptoms) or Complicated (systemic symptoms)? @ -uncomplicated Side effects of treatment? @ -[No] Exacerbation, Progression, or Severe Exacerbation? @ -[No] Poses a threat to life or bodily function? How? (Chest pain, [place], [place], pneumonia, PE, COPD, DKA, ARF, appy, cholecystitis, CVA, Diverticulitis, Homicidal, Suicidal, threat to staff... and all critical care pts) @ -[No] Dr. Bella is my attending - Lab Data Result diagrams: 04/17/22 12:15 04/17/22 12:15 Lab Results 04/17/22 04/17/22 04/17/22 Range/Units 12:15 12:15 12:15 WBC 10.7 H (3.8-10.6) k/uL RBC 4.97 (3.80-5.40) m/uL Hgb 13.2 (11.4-16.0) gm/dL Hct 40.3 (34.0-46.0) % MCV 81.0 (80.0-100.0) fL MCH 26.5 (25.0-35.0) pg MCHC 32.7 (31.0-37.0) g/dL RDW 15.7 H (11.5-15.5) % Plt Count 222 (150-450) k/uL MPV 7.2 Neutrophils % 87 % Lymphocytes % 7 % Monocytes % 4 % Eosinophils % 0 % Basophils % 0 % Neutrophils # 9.3 H (1.3-7.7) k/uL Lymphocytes # 0.7 L (1.0-4.8) k/uL Monocytes # 0.5 (0-1.0) k/uL Eosinophils # 0.1 (0-0.7) k/uL Basophils # 0.0 (0-0.2) k/uL Sodium 137 (137-145) mmol/L Potassium 3.7 (3.5-5.1) mmol/L Chloride 105 (98-107) mmol/L Carbon Dioxide 23 (22-30) mmol/L Anion Gap 9 mmol/L BUN 15 (7-17) mg/dL Creatinine 0.80 (0.52-1.04) mg/dL Est GFR (CKD-EPI)AfAm >90 (>60 ml/min/1.73 sqM) Est GFR (CKD-EPI)NonAf >90 (>60 ml/min/1.73 sqM) Glucose 93 (74-99) mg/dL Plasma Lactic Acid Jostin 0.9 (0.7-2.0) mmol/L Calcium 8.3 L (8.4-10.2) mg/dL Magnesium 1.7 (1.6-2.3) mg/dL Total Bilirubin 1.1 (0.2-1.3) mg/dL AST 16 (14-36) U/L ALT 16 (4-34) U/L Alkaline Phosphatase 68 (38-126) U/L Total Protein 6.8 (6.3-8.2) g/dL Albumin 4.2 (3.5-5.0) g/dL Lipase 24 (23-300) U/L HCG, Qual Influenza Type A (PCR) (Not Detectd) Influenza Type B (PCR) (Not Detectd) RSV (PCR) (Not Detectd) SARS-CoV-2 (PCR) (Not Detectd) 04/17/22 04/17/22 Range/Units 12:15 14:05 WBC (3.8-10.6) k/uL RBC (3.80-5.40) m/uL Hgb (11.4-16.0) gm/dL Hct (34.0-46.0) % MCV (80.0-100.0) fL MCH (25.0-35.0) pg MCHC (31.0-37.0) g/dL RDW (11.5-15.5) % Plt Count (150-450) k/uL MPV Neutrophils % % Lymphocytes % % Monocytes % % Eosinophils % % Basophils % % Neutrophils # (1.3-7.7) k/uL Lymphocytes # (1.0-4.8) k/uL Monocytes # (0-1.0) k/uL Eosinophils # (0-0.7) k/uL Basophils # (0-0.2) k/uL Sodium (137-145) mmol/L Potassium (3.5-5.1) mmol/L Chloride (98-107) mmol/L Carbon Dioxide (22-30) mmol/L Anion Gap mmol/L BUN (7-17) mg/dL Creatinine (0.52-1.04) mg/dL Est GFR (CKD-EPI)AfAm (>60 ml/min/1.73 sqM) Est GFR (CKD-EPI)NonAf (>60 ml/min/1.73 sqM) Glucose (74-99) mg/dL Plasma Lactic Acid Jostin (0.7-2.0) mmol/L Calcium (8.4-10.2) mg/dL Magnesium (1.6-2.3) mg/dL Total Bilirubin (0.2-1.3) mg/dL AST (14-36) U/L ALT (4-34) U/L Alkaline Phosphatase (38-126) U/L Total Protein (6.3-8.2) g/dL Albumin (3.5-5.0) g/dL Lipase (23-300) U/L HCG, Qual Not Detected Influenza Type A (PCR) Not Detected (Not Detectd) Influenza Type B (PCR) Not Detected (Not Detectd) RSV (PCR) Not Detected (Not Detectd) SARS-CoV-2 (PCR) Not Detected (Not Detectd) Disposition Clinical Impression: Right flank pain, Nausea and vomiting, Diarrhea, Back pain Disposition: HOME SELF-CARE Condition: Good Instructions (If sedation given, give patient instructions): Abdominal Pain (ED) Additional Instructions: Take medication as directed. Do not drink alcohol or operate machinery while taking Flexeril as it can make you sleepy. It is important to follow up with a primary care provider regarding this recurring issue. Return to the ED if you experience new, concerning, or worsening symptoms Prescriptions: Cyclobenzaprine [Flexeril] 5 mg PO HS PRN #5 tablet PRN Reason: Muscle Spasm Ibuprofen [Motrin] 800 mg PO Q8HR PRN #30 tab PRN Reason: Pain Ondansetron Odt [Zofran Odt] 4 mg PO Q8HR PRN #10 tab PRN Reason: Nausea Is patient prescribed a controlled substance at d/c from ED?: No Referrals: None,Stated [Primary Care Provider] - 1-2 days
[2022-04-17 15:58] VITALS: BP 110/70; PULSE 100; RESP 18
== END 2022-04-17 16:40 | disposition home or self-care (01) ==
LOC: EC 11:34
DX: M54.50 Low back pain, unspecified (principal); R10.11 Right upper quadrant pain; R11.2 Nausea with vomiting, unspecified; R19.7 Diarrhea, unspecified; F17.200 Nicotine dependence, unspecified, uncomplicated; F12.90 Cannabis use, unspecified, uncomplicated; Z20.822 Contact with and (suspected) exposure to COVID-19; Z91.030 Bee allergy status; Z91.018 Allergy to other foods; Z88.9 Allergy status to unspecified drugs, medicaments and biological substances
CPT/HCPCS: 36415; 80053; 83605; 83690; 83735; 85025; 84703; 87636; 74177; 99284; 96374; 96375; 96361; J2405; J1885; Q9967

== ENCOUNTER 2022-07-13 14:28 | Emergency (ER) | payer OTHER ==
--- NOTE | 2022-07-13 14:32 | ED ---
General Adult HPI - General Stated complaint: fell hurt chest Time Seen by Provider: 07/13/22 14:30 - History of Present Illness Initial comments: 21-year-old female with no significant past medical history presents the emergency department with a chief complaint of she landed onto her chest. He is complaining of right shoulder pain bilateral collarbone pain. She reports that she was pushing a piece of furniture when she slipped and fell onto her chest. She denies any dizziness, lightheadedness, shortness of breath. She denies any loss of consciousness or hitting her head. She denies any anticoagulant use. She denies any numbness or tingling in her upper extremities. She has not taken Anything for his symptoms - Related Data Previous Rx's Medication Instructions Recorded Ondansetron Odt [Zofran Odt] 4 mg PO Q8HR PRN #10 tab 02/20/22 Cyclobenzaprine [Flexeril] 5 mg PO HS PRN #5 tablet 04/17/22 Ibuprofen [Motrin] 800 mg PO Q8HR PRN #30 tab 04/17/22 Ondansetron Odt [Zofran Odt] 4 mg PO Q8HR PRN #10 tab 04/17/22 Ibuprofen [Motrin] 600 mg PO Q8HR PRN #30 tab 07/13/22 Allergies Allergy/AdvReac Type Severity Reaction Status Date / Time bee venom protein (honey bee) Allergy Swelling Verified 07/13/22 14:42 pineapple Allergy Swelling Verified 07/13/22 14:42 methylphenidate AdvReac Rapid Verified 07/13/22 14:42 [From Concerta] Heart Rate Review of Systems ROS Statement: Those systems with pertinent positive or pertinent negative responses have been documented in the HPI. ROS Other: All systems not noted in ROS Statement are negative. Past Medical History Past Medical History: No Reported History History of Any Multi-Drug Resistant Organisms: None Reported Past Surgical History: No Surgical Hx Reported Past Anesthesia/Blood Transfusion Reactions: No Reported Reaction Past Psychological History: ADD/ADHD, Anxiety, Depression Smoking Status: Current every day smoker, Vaper Past Alcohol Use History: Occasional Past Drug Use History: Marijuana General Exam - General Exam Comments Initial Comments: Visual Physical Exam Vital signs reviewed General: Well-appearing, nontoxic, no acute distress. Head: Normocephalic, atraumatic Eyes: PERRLA, EOMI ENT: Airway patent Chest: Nonlabored breathing Skin: No visual rash, normal skin tone Neuro: Alert and oriented 3 Musculoskeletal: No gross abnormalities General appearance: alert, in no apparent distress Head exam: Present: atraumatic, normocephalic, normal inspection Eye exam: Present: normal appearance, PERRL, EOMI. Absent: scleral icterus, conjunctival injection, periorbital swelling ENT exam: Present: normal exam, mucous membranes moist Neck exam: Present: normal inspection. Absent: tenderness, meningismus, lymphadenopathy Respiratory exam: Present: normal lung sounds bilaterally. Absent: respiratory distress, wheezes, rales, rhonchi, stridor Cardiovascular Exam: Present: regular rate, normal rhythm, normal heart sounds. Absent: systolic murmur, diastolic murmur, rubs, gallop, clicks GI/Abdominal exam: Present: soft, normal bowel sounds. Absent: distended, tenderness, guarding, rebound, rigid Extremities exam: Present: normal inspection, full ROM, normal capillary refill. Absent: tenderness, pedal edema, joint swelling, calf tenderness Back exam: Present: normal inspection Neurological exam: Present: alert, oriented X3, CN II-XII intact Psychiatric exam: Present: normal affect, normal mood Skin exam: Present: warm, dry, intact, normal color. Absent: rash Course Vital Signs 07/13/22 14:38 Temperature 97.2 F L Pulse Rate 60 Respiratory 18 Rate Blood Pressure 119/78 O2 Sat by Pulse 95 Oximetry EKG Findings - EKG Comments: EKG Findings:: I interpreted the following: EKG performed at 14:50. 8 51 bpm and sinus bradycardia, CO interval 136, QRS duration 93, QT/QTc 407/384 Medical Decision Making - Medical Decision Making Was pt. sent in by a medical professional or institution (, PA, FIRE FIGHTERS DISPATCHER, urgent care, hospital, or detention...) When possible be specific @ -[No] Did you speak to anyone other than the patient for history (EMS, parent, family, police, friend...)? What history was obtained from this source @ -[No] Did you review nursing and triage notes (agree or disagree)? Why? @ -[I reviewed and agree with nursing and triage notes] Were old charts reviewed (outside hosp., previous admission, EMS record, old EKG, old radiological studies, urgent care reports/EKG's, detention records)? Report findings @ -[No old charts were reviewed] Differential Diagnosis (chest pain, altered mental status, abdominal pain women, abdominal pain men, vaginal bleeding, weakness, fever, dyspnea, syncope, headache, dizziness, GI bleed, back pain, seizure, CVA, palpatations, mental health, musculoskeletal)? @ -[not applicable] EKG interpreted by me (3pts min.). @ -[As above] X-rays interpreted by me (1pt min.). @ -X-ray negative for any fracture or dislocation CT interpreted by me (1pt min.). @ -[None done] U/S interpreted by me (1pt. min.). @ -[None done] What testing was considered but not performed or refused? (CT, X-rays, U/S, labs)? Why? @ -[None] What meds were considered but not given or refused? Why? @ -[None] Did you discuss the management of the patient with other professionals (professionals i.e. , PA, FIRE FIGHTERS DISPATCHER, lab, RT, psych nurse, social welfare clerk, retail service representative, teacher, gunnery/ordnance officer, case management coordinator)? Give summary @ -[No] Was smoking cessation discussed for >3mins.? @ -[No] Was critical care preformed (if so, how long)? @ -[No] Were there social determinants of health that impacted care today? How? (Homelessness, low income, unemployed, alcoholism, drug addiction, transportation, low edu. Level, literacy, decrease access to med. care, [facility], rehab)? @ -[No] Was there de-escalation of care discussed even if they declined (Discuss DNR or withdrawal of care, Hospice)? DNR status @ -[No] What co-morbidities impacted this encounter? (DM, HTN, Smoking, COPD, CAD, Cancer, CVA, ARF, Chemo, Hep., AIDS, mental health diagnosis, sleep apnea, morbid obesity)? @ -[None] Was patient admitted / discharged? Hospital course, mention meds given and route, prescriptions, significant lab abnormalities, going to OR and other pertinent info. @ --Discharged. This is a 21-year-old female who presents the emergency department with chest pain. Patient had a thorough history and physical exam performed physical exam is essentially unremarkable. Heart rate regular rate and rhythm, initial physical reveals wheezes in all lung peña, abdomen soft and nontender. There are no focal (deficits noted. Patient had lab work and imaging performed which was negative. Patient was given toradol and lidoderm patch with symptomatic relief. I discussed the results in detail with the patient and patient's family who verbalized understanding and all questions were addressed. Patient was discharged in stable condition. She was encouraged to follow up with her PCP in 1-2 days. Return precautions were discussed at length. Case discussed with JEREMIAH Antoine who agrees with plan of care Undiagnosed new problem with uncertain prognosis? @ -[No] Drug Therapy requiring intensive monitoring for toxicity (Heparin, Nitro, Insulin, Cardizem)? @ -[No] Were any procedures done? @ -[No] Diagnosis/symptom? @ -chest pain - fall Acute, or Chronic, or Acute on Chronic? @ -acute Uncomplicated (without systemic symptoms) or Complicated (systemic symptoms)? @ -uncomplicated Side effects of treatment? @ -[No] Exacerbation, Progression, or Severe Exacerbation? @ -[No] Poses a threat to life or bodily function? How? (Chest pain, [place], [place], pneumonia, PE, COPD, DKA, ARF, appy, cholecystitis, CVA, Diverticulitis, Homicidal, Suic idal, threat to staff... and all critical care pts) @ -low likelihood Disposition Clinical Impression: Fall, Chest pain Disposition: HOME SELF-CARE Condition: Stable Instructions (If sedation given, give patient instructions): Costochondritis (ED) Additional Instructions: Please return to the nearest emergency department if symptoms worsen or persist Prescriptions: Ibuprofen [Motrin] 600 mg PO Q8HR PRN #30 tab PRN Reason: Pain Is patient prescribed a controlled substance at d/c from ED?: No Referrals: Anne Dan MD [STAFF PHYSICIAN] - 1-2 days Time of Disposition: 16:19
[2022-07-13 14:42] VITALS: BP 119/78; PULSE 60; RESP 18; TEMP 97.2
--- NOTE | 2022-07-13 15:25 | XR ---
EXAMINATION TYPE: XR chest 2V DATE OF EXAM: 07/13/2022 COMPARISON: Chest x-ray September 16, 2021 HISTORY: Fall injury with pain. TECHNIQUE: Frontal and lateral views of the chest are obtained. FINDINGS: There is no focal air space opacity, pleural effusion, or pneumothorax seen. The cardiac silhouette size is stable and within normal limits. The osseous structures are intact. IMPRESSION: No acute cardiopulmonary process. No significant change from prior.
[2022-07-13] MEDS ORDERED: KETOROLAC 15 MG/ML 1 ML VIAL IM STA (15:42)
[2022-07-13] MEDS ORDERED: LIDOCAINE 5% PATCH TOPICAL SCH (15:45)
--- NOTE | 2022-07-13 15:45 | XR ---
EXAMINATION TYPE: XR shoulder complete RT DATE OF EXAM: 07/13/2022 CLINICAL HISTORY: Fall injury with pain TECHNIQUE: Three views of the right shoulder are obtained. COMPARISON: None. FINDINGS: There is no acute fracture/dislocation evident in the right shoulder. The acromioclavicul ar and glenohumeral joint spaces appear within normal limits. The visualized ribs are intact and unr emarkable. IMPRESSION: There is no acute fracture or dislocation in the right shoulder.
[2022-07-13] MEDS ORDERED: IBUPROFEN 600 MG STARTER PACK 4 TAB BTL PO STA (16:22)
== END 2022-07-13 16:30 | disposition home or self-care (01) ==
LOC: EC 14:28
DX: R07.9 Chest pain, unspecified (principal); F12.90 Cannabis use, unspecified, uncomplicated; F17.200 Nicotine dependence, unspecified, uncomplicated; F41.9 Anxiety disorder, unspecified; F32.A Depression, unspecified; Z91.030 Bee allergy status; Z91.018 Allergy to other foods; W18.30XA Fall on same level, unspecified, initial encounter
CPT/HCPCS: 93005; 73030; 71046; 99284; J1885

== ENCOUNTER 2022-08-27 02:49 | Emergency (ER) | payer OTHER ==
[2022-08-27 02:55] VITALS: BP 122/82; PULSE 67; RESP 18; TEMP 97.5
--- NOTE | 2022-08-27 03:05 | ED ---
Lower Extremity Injury HPI - General Chief Complaint: Extremity Injury, Lower Stated Complaint: R ankle pain Time Seen by Provider: 08/27/22 02:59 Source: patient Mode of arrival: ambulatory Limitations: no limitations - History of Present Illness Initial Comments: 21-year-old female presenting with chief complaint of right ankle pain. She states that this afternoon she [place] the park. She reports pain across the ankle and the dorsal portion of the foot. No numbness or tingling. No obvious deformity. Increased pain with weightbearing. - Related Data Previous Rx's Medication Instructions Recorded Ondansetron Odt [Zofran Odt] 4 mg PO Q8HR PRN #10 tab 02/20/22 Cyclobenzaprine [Flexeril] 5 mg PO HS PRN #5 tablet 04/17/22 Ibuprofen [Motrin] 800 mg PO Q8HR PRN #30 tab 04/17/22 Ondansetron Odt [Zofran Odt] 4 mg PO Q8HR PRN #10 tab 04/17/22 Ibuprofen [Motrin] 600 mg PO Q8HR PRN #30 tab 07/13/22 Allergies Allergy/AdvReac Type Severity Reaction Status Date / Time bee venom protein (honey bee) Allergy Swelling Verified 08/27/22 02:53 pineapple Allergy Swelling Verified 08/27/22 02:53 methylphenidate AdvReac Rapid Verified 08/27/22 02:53 [From Concerta] Heart Rate Review of Systems ROS Statement: Those systems with pertinent positive or pertinent negative responses have been documented in the HPI. ROS Other: All systems not noted in ROS Statement are negative. Past Medical History Past Medical History: No Reported History History of Any Multi-Drug Resistant Organisms: None Reported Past Surgical History: No Surgical Hx Reported Past Anesthesia/Blood Transfusion Reactions: No Reported Reaction Past Psychological History: ADD/ADHD, Anxiety, Depression Smoking Status: Current every day smoker, Vaper Past Alcohol Use History: Occasional Past Drug Use History: Marijuana General Exam Limitations: no limitations General appearance: alert, in no apparent distress Head exam: Present: atraumatic, normocephalic, normal inspection Eye exam: Present: normal appearance, EOMI. Absent: scleral icterus, periorbital swelling Neck exam: Present: normal inspection, full ROM Right Ankle exam: Present: normal inspection, full ROM, tenderness. Absent: swelling Foot/Toe exam: Present: normal inspection, full ROM, tenderness. Absent: swelling Neurovascular tendon exam: Present: no vascular compromise Neurological exam: Present: alert, oriented X3, CN II-XII intact Psychiatric exam: Present: normal affect, normal mood Skin exam: Present: warm, dry, intact, normal color. Absent: rash Course Vital Signs 08/27/22 02:53 Temperature 97.5 F L Pulse Rate 67 Respiratory 18 Rate Blood Pressure 122/82 O2 Sat by Pulse 98 Oximetry Medical Decision Making - Medical Decision Making Was pt. sent in by a medical professional or institution (, PA, CRACKING STILL OPERATOR, urgent care, hospital, or group home...) When possible be specific @ -No Did you speak to anyone other than the patient for history (EMS, parent, family, police, friend...)? What history was obtained from this source @ -No Did you review nursing and triage notes (agree or disagree)? Why? @ -I reviewed and agree with nursing and triage notes Were old charts reviewed (outside hosp., previous admission, EMS record, old EKG, old radiological studies, urgent care reports/EKG's, group home records)? Report findings @ -No old charts were reviewed Differential Diagnosis (chest pain, altered mental status, abdominal pain women, abdominal pain men, vaginal bleeding, weakness, fever, dyspnea, syncope, headache, dizziness, GI bleed, back pain, seizure, CVA, palpatations, mental health, musculoskeletal)? @ -Differential Musculoskeletal Muscular strain, contusion, ligament sprain, fracture, arthritis, septic arthritis, bursitis, cellulitis, muscle spasm, nerve compression, DVT, arterial occlusion, herpes zoster, electrolyte abnormality, tumor.... This is not meant to be in all inclusive list EKG interpreted by me (3pts min.). @ -As above X-rays interpreted by me (1pt min.). @ -X-ray shows no fracture or dislocation CT interpreted by me (1pt min.). @ -None done U/S interpreted by me (1pt. min.). @ -None done What testing was considered but not performed or refused? (CT, X-rays, U/S, labs)? Why? @ -None What meds were considered but not given or refused? Why? @ -None Did you discuss the management of the patient with other professionals (professionals i.e. , PA, CRACKING STILL OPERATOR, lab, RT, psych nurse, rn social services, flight attendant/inflight manager, teacher, electronic warfare officer, shoe caser)? Give summary @ -No Was smoking cessation discussed for >3mins.? @ -No Was critical care preformed (if so, how long)? @ -No Were there social determinants of health that impacted care today? How? (Homelessness, low income, unemployed, alcoholism, drug addiction, transportation, low edu. Level, literacy, decrease access to med. care, detention, rehab)? @ -No Was there de-escalation of care discussed even if they declined (Discuss DNR or withdrawal of care, Hospice)? DNR status @ -No What co-morbidities impacted this encounter? (DM, HTN, Smoking, COPD, CAD, Cancer, CVA, ARF, Chemo, Hep., AIDS, mental health diagnosis, sleep apnea, morbid obesity)? @ -None Was patient admitted / discharged? Hospital course, mention meds given and route, prescriptions, significant lab abnormalities, going to OR and other pertinent info. @ -21-year-old female presenting with chief complaint of ankle pain after an injury. X-rays negative for fracture or dislocation. Educated on ankle sprain and provided with ankle stirrup brace and crutches. Follow-up with PCP. Report back to ER with any new or worsening symptoms. Discussed return parameters and answered all questions. Patient conveyed verbal understanding and agreed to the plan. I discussed this case in detail with my attending Dr. Weber Undiagnosed new problem with uncertain prognosis? @ -No Drug Therapy requiring intensive monitoring for toxicity (Heparin, Nitro, Insulin, Cardizem)? @ -No Were any procedures done? @ -No Diagnosis/symptom? @ -Ankle Sprain Acute, or Chronic, or Acute on Chronic? @ -Acute Uncomplicated (without systemic symptoms) or Complicated (systemic symptoms)? @ -Uncomplicated Side effects of treatment? @ -No Exacerbation, Progression, or Severe Exacerbation? @ -No Poses a threat to life or bodily function? How? (Chest pain, [place], [place], pneumonia, PE, COPD, DKA, ARF, appy, cholecystitis, CVA, Diverticulitis, Homicidal, Suicidal, threat to staff... and all critical care pts) @ -No Disposition Clinical Impression: Ankle sprain Disposition: HOME SELF-CARE Condition: Good Instructions (If sedation given, give patient instructions): Ankle Sprain (ED) Additional Instructions: Follow-up with PCP. Report back to ER with any new or worsening symptoms. Take Motrin and Tylenol as stated for pain control. Rest, ice, elevate the foot. Is patient prescribed a controlled substance at d/c from ED?: No Referrals: Anne Dan MD [Primary Care Provider] - 1-2 days Time of Disposition: 03:53
--- NOTE | 2022-08-27 04:56 | XR ---
EXAM: XR Right Ankle Complete, 3 or More Views CLINICAL HISTORY: ITS.REASON XR Reason: injury TECHNIQUE: Frontal, lateral and oblique views of the right ankle. COMPARISON: No relevant prior studies available. FINDINGS: Bones/joints: Unremarkable. No fracture or malalignment. No joint effusion. Soft tissues: Unremarkable. IMPRESSION: Normal right ankle x-rays.
--- NOTE | 2022-08-27 04:57 | XR ---
EXAM: XR Right Foot Complete, 3 or More Views CLINICAL HISTORY: ITS.REASON XR Reason: injury TECHNIQUE: Frontal, lateral and oblique views of the right foot. COMPARISON: No relevant prior studies available. FINDINGS: Bones/joints: No fracture or malalignment. Soft tissues: Unremarkable. IMPRESSION: No fracture or malalignment.
== END 2022-08-27 04:15 | disposition home or self-care (01) ==
LOC: EC 02:49
DX: S93.401A Sprain of unspecified ligament of right ankle, initial encounter (principal); F12.90 Cannabis use, unspecified, uncomplicated; F17.290 Nicotine dependence, other tobacco product, uncomplicated; Z91.030 Bee allergy status; Z91.018 Allergy to other foods; Z88.8 Allergy status to other drugs, medicaments and biological substances; X50.0XXA Overexertion from strenuous movement or load, initial encounter
CPT/HCPCS: 73610; 73630; 99283; L4350

== ENCOUNTER 2022-10-21 14:55 | Emergency (ER) | payer OTHER ==
[2022-10-21 15:15] VITALS: RESP 18
[2022-10-21] MEDS ORDERED: KETOROLAC 15 MG/ML 1 ML VIAL IM STA (15:20)
[2022-10-21] MEDS ORDERED: FLUTICASONE 50MCG/SPRAY NASAL 16GM EA NOSTRIL STA (15:35)
--- NOTE | 2022-10-21 17:36 | ED ---
General Adult HPI - General Chief complaint: Upper Respiratory Infection Stated complaint: dental pain Time Seen by Provider: 10/21/22 15:20 Source: patient Mode of arrival: ambulatory Limitations: no limitations - History of Present Illness Initial comments: Patient is a 21-year-old female presents to emergency department for dental pain. Patient had her left lower tooth pulled this morning at the dentist. States it was not infected but had a "nerve problem." States ever since the tooth was pulled she has had dental pain congestion, mild headache. She denies fever and chills. Denies cough, chest pain, shortness of breath. - Related Data Previous Rx's Medication Instructions Recorded Ondansetron Odt [Zofran Odt] 4 mg PO Q8HR PRN #10 tab 02/20/22 Cyclobenzaprine [Flexeril] 5 mg PO HS PRN #5 tablet 04/17/22 Ibuprofen [Motrin] 800 mg PO Q8HR PRN #30 tab 04/17/22 Ondansetron Odt [Zofran Odt] 4 mg PO Q8HR PRN #10 tab 04/17/22 Ibuprofen [Motrin] 600 mg PO Q8HR PRN #30 tab 07/13/22 Ibuprofen [Motrin] 800 mg PO Q6HR #30 tab 10/21/22 Allergies Allergy/AdvReac Type Severity Reaction Status Date / Time bee venom protein (honey bee) Allergy Swelling Verified 10/21/22 15:15 pineapple Allergy Swelling Verified 10/21/22 15:15 methylphenidate AdvReac Rapid Verified 10/21/22 15:15 [From Concerta] Heart Rate Review of Systems ROS Statement: Those systems with pertinent positive or pertinent negative responses have been documented in the HPI. ROS Other: All systems not noted in ROS Statement are negative. Past Medical History Past Medical History: No Reported History History of Any Multi-Drug Resistant Organisms: None Reported Past Surgical History: No Surgical Hx Reported Past Anesthesia/Blood Transfusion Reactions: No Reported Reaction Past Psychological History: ADD/ADHD, Anxiety, Depression Smoking Status: Current every day smoker, Vaper Past Alcohol Use History: Occasional Past Drug Use History: Marijuana General Exam Limitations: no limitations General appearance: alert Eye exam: Present: normal appearance, PERRL, EOMI. Absent: scleral icterus, co njunctival injection, periorbital swelling ENT exam: Present: normal oropharynx (left lower tooth pulled) Respiratory exam: Present: normal lung sounds bilaterally. Absent: respiratory distress, wheezes, rales, rhonchi, stridor Cardiovascular Exam: Present: regular rate, normal rhythm, normal heart sounds. Absent: systolic murmur, diastolic murmur, rubs, gallop, clicks Neurological exam: Present: alert Skin exam: Present: warm, dry, intact, normal color. Absent: rash Course Vital Signs 10/21/22 10/21/22 15:10 18:13 Temperature 98.3 F 97.9 F Pulse Rate 63 55 L Respiratory 18 18 Rate Blood Pressure 98/64 117/68 O2 Sat by Pulse 99 99 Oximetry Medical Decision Making - Medical Decision Making Was pt. sent in by a medical professional or institution ([facility], HUMAN RESOURCES PARTNER, urgent care, hospital, or [facility]...) When possible be specific @ -No Did you speak to anyone other than the patient for history (EMS, parent, family, police, friend...)? What history was obtained from this source @ -No Did you review nursing and triage notes (agree or disagree)? Why? @ -I reviewed and agree with nursing and triage notes Were old charts reviewed (outside hosp., previous admission, EMS record, old EKG, old radiological studies, urgent care reports/EKG's, [facility] records)? Report findings @ -No old charts were reviewed Differential Diagnosis (chest pain, altered mental status, abdominal pain women, abdominal pain men, vaginal bleeding, weakness, fever, dyspnea, syncope, headache, dizziness, GI bleed, back pain, seizure, CVA, palpatations, mental health)? @ -Postop pain, upper respiratory infection, dental infection. This list is not meant to be all-inclusive EKG interpreted by me (3pts min.). @ -As above X-rays interpreted by me (1pt min.). @ -None done CT interpreted by me (1pt min.). @ -None done U/S interpreted by me (1pt. min.). @ -None done What testing was considered but not performed or refused? (CT, X-rays, U/S, labs)? Why? @ -None What meds were considered but not given or refused? Why? @ -None Did you discuss the management of the patient with other professionals (professionals i.e. , PA, HUMAN RESOURCES PARTNER, lab, RT, psych nurse, social work supervisor, primary health organisation manager, teacher, vessel traffic officer, case therapist)? Give summary @ -No Was smoking cessation discussed for >3mins.? @ -No] Was critical care preformed (if so, how long)? @ -[No] Were there social determinants of health that impacted care today? How? (Ho melessness, low income, unemployed, alcoholism, drug addiction, transportation, low edu. Level, literacy, decrease access to med. care, longterm, rehab)? @ -[No] Was there de-escalation of care discussed even if they declined (Discuss DNR or withdrawal of care, Hospice)? DNR status @ -[No] What co-morbidities impacted this encounter? (DM, HTN, Smoking, COPD, CAD, Cancer, CVA, ARF, Chemo, Hep., AIDS, mental health diagnosis, sleep apnea, morbid obesity)? @ -[None] Was patient admitted / discharged? Hospital course, mention meds given and route, prescriptions, significant lab abnormalities, going to OR and other pertinent info. @ -Patient presented with dental pain after procedure. No evidence of infection. Pain and symptoms treated in the emergency department with improvement. Viral testing is negative. She is discharged with symptomatic treatment Undiagnosed new problem with uncertain prognosis? @ -[No] Drug Therapy requiring intensive monitoring for toxicity (Heparin, Nitro, Insulin, Cardizem)? @ -[No] Were any procedures done? @ -[No] Diagnosis/symptom? @ -dental pain, congestion Acute, or Chronic, or Acute on Chronic? @ -acute Uncomplicated (without systemic symptoms) or Complicated (systemic symptoms)? @ -uncomplicated Side effects of treatment? @ -No Exacerbation, Progression, or Severe Exacerbation? @ -[No] Poses a threat to life or bodily function? How? (Chest pain, [place], [place], pneumonia, PE, COPD, DKA, ARF, appy, cholecystitis, CVA, Diverticulitis, Homicidal, Suicidal, threat to staff... and all critical care pts) @ -[No] Dr. Reardon is my attending - Lab Data Lab Results 10/21/22 Range/Units 16:25 Influenza Type A (PCR) Not Detected (Not Detectd) Influenza Type B (PCR) Not Detected (Not Detectd) RSV (PCR) Not Detected (Not Detectd) SARS-CoV-2 (PCR) Not Detected (Not Detectd) Disposition Clinical Impression: Congestion of nasal sinus, Pain, dental Disposition: HOME SELF-CARE Condition: Good Instructions (If sedation given, give patient instructions): Upper Respiratory Infection (ED) Additional Instructions: Take medication as directed. Please follow-up with your primary care provider in 1-2 days. Return to the emergency department if you experience new, concerning, or worsening symptoms. Prescriptions: Ibuprofen [Motrin] 800 mg PO Q6HR #30 tab Is patient prescribed a controlled substance at d/c from ED?: No Referrals: Anne Dan MD [Primary Care Provider] - 1-2 days
[2022-10-21 18:16] VITALS: BP 117/68; PULSE 55; TEMP 97.9
== END 2022-10-21 18:16 | disposition home or self-care (01) ==
LOC: EC 14:55
DX: R09.81 Nasal congestion (principal); K08.89 Other specified disorders of teeth and supporting structures; F17.290 Nicotine dependence, other tobacco product, uncomplicated; F12.90 Cannabis use, unspecified, uncomplicated; Z86.59 Personal history of other mental and behavioral disorders; Z91.030 Bee allergy status; Z91.018 Allergy to other foods; Z88.8 Allergy status to other drugs, medicaments and biological substances; Z20.822 Contact with and (suspected) exposure to COVID-19
CPT/HCPCS: 87636; 99283; 96372; J1885

== ENCOUNTER 2023-01-25 13:28 | Emergency (ER) | payer OTHER ==
--- NOTE | 2023-01-25 14:18 | ED ---
URI HPI - General Source: patient, RN notes reviewed Mode of arrival: ambulatory Limitations: no limitations <Marcel Briggs - Last Filed: 01/25/23 14:17> <Tamika Alvarado - Last Filed: 01/25/23 15:36> - General Chief Complaint: Upper Respiratory Infection Stated Complaint: lung,abdo,back pain Time Seen by Provider: 01/25/23 14:17 - History of Present Illness Initial Comments: 22-year-old female presents emergency Department chief complaint of body aches, pain, shortness of breath, congestion. Patient states symptoms started last 24 hours. She states she last took any Tylenol Motrin at 6 clot this morning. She states it was not helping throughout the night. She denies any significant past medical history. (Marcel Briggs) Patient is 22-year-old female presented ER with chief complaint of body aches, fever, congestion. Patient states she's had the symptoms for the past 24 hours. Patient states she has been taking [id number] Tylenol, Motrin, Advil, Sudafed with no relief. Patient reports no known sick contacts.Patient denies constipation/diarrhea, urinary complaints, or nausea/vomiting. (Tamika Alvarado) - Related Data Previous Rx's Medication Instructions Recorded Ondansetron Odt [Zofran Odt] 4 mg PO Q8HR PRN #10 tab 02/20/22 Cyclobenzaprine [Flexeril] 5 mg PO HS PRN #5 tablet 04/17/22 Ibuprofen [Motrin] 800 mg PO Q8HR PRN #30 tab 04/17/22 Ondansetron Odt [Zofran Odt] 4 mg PO Q8HR PRN #10 tab 04/17/22 Ibuprofen [Motrin] 600 mg PO Q8HR PRN #30 tab 07/13/22 Ibuprofen [Motrin] 800 mg PO Q6HR #30 tab 10/21/22 Allergies Allergy/AdvReac Type Severity Reaction Status Date / Time bee venom protein (honey bee) Allergy Swelling Verified 01/25/23 13:37 pineapple Allergy Swelling Verified 01/25/23 13:37 methylphenidate AdvReac Rapid Verified 01/25/23 13:37 [From Concerta] Heart Rate Review of Systems ROS Other: All systems not noted in ROS Statement are negative. <Marcel Briggs - Last Filed: 01/25/23 14:17> ROS Other: All systems not noted in ROS Statement are negative. <Tamika Alvarado - Last Filed: 01/25/23 15:36> ROS Statement: Those systems with pertinent positive or pertinent negative responses have been documented in the HPI. Past Medical History Past Medical History: No Reported History History of Any Multi-Drug Resistant Organisms: None Reported Past Surgical History: No Surgical Hx Reported Past Anesthesia/Blood Transfusion Reactions: No Reported Reaction Past Psychological History: ADD/ADHD, Anxiety, Depression Smoking Status: Vaper Past Alcohol Use History: Occasional Past Drug Use History: Marijuana <Marcel Briggs - Last Filed: 01/25/23 14:17> General Exam Limitations: no limitations <Marcel Briggs - Last Filed: 01/25/23 14:17> General appearance: alert, in no apparent distress ENT exam: Present: normal exam, normal oropharynx, mucous membranes moist, TM's normal bilaterally Neck exam: Present: normal inspection. Absent: tenderness, meningismus, lymphadenopathy Respiratory exam: Present: normal lung sounds bilaterally. Absent: respiratory distress, wheezes, rales, rhonchi, stridor Cardiovascular Exam: Present: regular rate, normal rhythm, normal heart sounds. Absent: systolic murmur, diastolic murmur, rubs, gallop, clicks GI/Abdominal exam: Present: soft, normal bowel sounds. Absent: distended, tenderness, guarding, rebound, rigid <Tamika Alvarado - Last Filed: 01/25/23 15:36> - General Exam Comments Initial Comments: Visual Physical Exam Vital signs reviewed General: Well-appearing, nontoxic, no acute distress. Head: Normocephalic, atraumatic Eyes: PERRLA, EOMI ENT: Airway patent Chest: Nonlabored breathing Skin: No visual rash, normal skin tone Neuro: Alert and oriented 3 Musculoskeletal: No gross abnormalities (Marcel Briggs) Course Vital Signs 01/25/23 13:35 Temperature 98.1 F Pulse Rate 111 H Respiratory 22 Rate Blood Pressure 115/77 O2 Sat by Pulse 95 Oximetry Medical Decision Making <Marcel Briggs - Last Filed: 01/25/23 14:17> - Radiology Data Radiology results: report reviewed, image reviewed <Tamika Alvarado - Last Filed: 01/25/23 15:36> - Medical Decision Making I completed the quick note portion of this chart signed Marcel Briggs PA-C (Marcel Briggs) Was pt. sent in by a medical professional or institution ([facility], REHAB TECH, urgent care, hospital, or [facility]...) When possible be specific @ -No Did you speak to anyone other than the patient for history (EMS, parent, family, police, friend...)? What history was obtained from this source @ -No Did you review nursing and triage notes (agree or disagree)? Why? @ -I reviewed and agree with nursing and triage notes Were old charts reviewed (outside hosp., previous admission, EMS record, old EKG, old radiological studies, urgent care reports/EKG's, [facility] records)? Report findings @ -No old charts were reviewed Differential Diagnosis (chest pain, altered mental status, abdominal pain women, abdominal pain men, vaginal bleeding, weakness, fever, dyspnea, syncope, headache, dizziness, GI bleed, back pain, seizure, CVA, palpatations, mental health, musculoskeletal)? @ -COVID-19, influenza, RSV, viral URI EKG interpreted by me (3pts min.). @ -None X-rays interpreted by me (1pt min.). @ -Chest x-ray shows for no acute cardiopulmonary processes. CT interpreted by me (1pt min.). @ -None done U/S interpreted by me (1pt. min.). @ -None done What testing was considered but not performed or refused? (CT, X-rays, U/S, labs)? Why? @ -None What meds were considered but not given or refused? Why? @ -None Did you discuss the management of the patient with other professionals (professionals i.e. [facility] Busch, REHAB TECH, lab, RT, psych nurse, child welfare social worker, handhole machine operator, teacher, truant officer, case checker)? Give summary @ -No Was smoking cessation discussed for >3mins.? @ -No Was critical care preformed (if so, how long)? @ -No Were there social determinants of health that impacted care today? How? (Homelessness, low income, unemployed, alcoholism, drug addiction, transportation, low edu. Level, literacy, decrease access to med. care, [facility], rehab)? @ -No Was there de-escalation of care discussed even if they declined (Discuss DNR or withdrawal of care, Hospice)? DNR status @ -No What co-morbidities impacted this encounter? (DM, HTN, Smoking, COPD, CAD, Cancer, CVA, ARF, Chemo, Hep., AIDS, mental health diagnosis, sleep apnea, morbid obesity)? @ -None Was patient admitted / discharged? Hospital course, mention meds given and route, prescriptions, significant lab abnormalities, going to OR and other pertinent info. @ -Discharged. Patient is a 22-year-old female presenting to the ER with chief complaint of URI symptoms. Chest x-ray shows no acute cardiopulmonary processes. COVID-19 swab positive. Patient will be discharged home to follow conservative treatment. Patient to follow-up with PCP. Undiagnosed new problem with uncertain prognosis? @ -No Drug Therapy requiring intensive monitoring for toxicity (Heparin, Nitro, Insulin, Cardizem)? @ -No Were any procedures done? @ -No Diagnosis/symptom? @ -COVID-19 Acute, or Chronic, or Acute on Chronic? @ -Acute Uncomplicated (without systemic symptoms) or Complicated (systemic symptoms)? @ -Uncomplicated Side effects of treatment? @ -No Exacerbation, Progression, or Severe Exacerbation? @ -No Poses a threat to life or bodily function? How? (Chest pain, [place], [place], pneumonia, PE, COPD, DKA, ARF, appy, cholecystitis, CVA, Diverticulitis, Homicidal, Suicidal, threat to staff... and all critical care pts) @ -No (Tamika Alvarado) - Lab Data Lab Results 01/25/23 Range/Units 13:39 Influenza Type A (PCR) Not Detected (Not Detectd) Influenza Type B (PCR) Not Detected (Not Detectd) RSV (PCR) Not Detected (Not Detectd) SARS-CoV-2 (PCR) Detected A (Not Detectd) Disposition <Marcel Briggs - Last Filed: 01/25/23 14:17> Is patient prescribed a controlled substance at d/c from ED?: No Time of Disposition: 15:30 <Tamika Alvarado - Last Filed: 01/25/23 15:36> Clinical Impression: COVID-19 Disposition: HOME SELF-CARE Condition: Stable Instructions (If sedation given, give patient instructions): COVID-19 (Coronavirus Disease 2019) (ED) Additional Instructions: Please return to the Emergency Department if symptoms worsen or any other concerns. Referrals: Anne Dan MD [Primary Care Provider] - 1-2 days
--- NOTE | 2023-01-25 15:04 | XR ---
EXAMINATION TYPE: XR chest 2V DATE OF EXAM: 01/25/2023 COMPARISON: 07/13/2022 TECHNIQUE: PA and lateral views submitted. HISTORY: Cough FINDINGS: The lungs are clear and there is no pneumothorax, pleural effusion, or focal pneumonia. Heart size normal and no overt failure. Osseous structures intact. Perihilar interstitial changes. IMPRESSION: 1. No acute process. Mild prominence of the perihilar interstitium is felt to be most likely on the b asis of reduced inspiration rather than interstitial pneumonitis or bronchitis. Correlate clinically.
[2023-01-25 16:01] VITALS: BP 113/71; PULSE 99; RESP 18; TEMP 98.4
== END 2023-01-25 15:56 | disposition home or self-care (01) ==
LOC: EC 13:28
DX: U07.1 COVID-19 (principal); F17.290 Nicotine dependence, other tobacco product, uncomplicated; F12.90 Cannabis use, unspecified, uncomplicated; Z86.59 Personal history of other mental and behavioral disorders; Z91.030 Bee allergy status; Z91.018 Allergy to other foods; Z88.8 Allergy status to other drugs, medicaments and biological substances
CPT/HCPCS: 71046; 87636; 99284

== ENCOUNTER 2023-08-15 13:25 | Emergency (ER) | payer OTHER ==
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
[2023-08-15 15:19] VITALS: BP 113/81; PULSE 64; RESP 18; TEMP 97.6
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
[2023-08-15] MEDS ORDERED: IBUPROFEN 600 MG TAB PO STA (15:34)
== END 2023-08-15 16:41 | disposition home or self-care (01) ==
LOC: EC 13:25
DX: S69.91XA Unspecified injury of right wrist, hand and finger(s), initial encounter (principal); F17.290 Nicotine dependence, other tobacco product, uncomplicated; F12.90 Cannabis use, unspecified, uncomplicated; Z91.030 Bee allergy status; Z91.018 Allergy to other foods; Z88.8 Allergy status to other drugs, medicaments and biological substances; X58.XXXA Exposure to other specified factors, initial encounter
CPT/HCPCS: 29125; 99283